=== PATIENT | female | born 1990 | race Caucasian/White ===

== ENCOUNTER 2022-12-26 09:31 | Emergency (ER) | payer OTHER, SELFPAY ==
[2022-12-26 09:38] VITALS: BP 131/72; PULSE 88; RESP 19; TEMP 36.6; O2SAT 99; BMI 46.5
--- NOTE | 2022-12-26 09:54 | ED_ITS ---
HPI - General Adult General Chief complaint: Psychiatric Symptoms Stated complaint: evaluation Time Seen by Provider: 12/26/22 09:54 Source: patient Mode of arrival: ambulatory Limitations: no limitations History of Present Illness HPI narrative: Patient is a 32 year old assigned female at with no reported medical history presenting to the emergency department today with increased anxiety. Patient states that her brother has been in the ICU after a bad car accident and her father recently . Patient states that these things are causing significantly increased anxiety and she feels overwhelmed. Patient states that it has been getting worse over the last 2 weeks. Patient denies any dizziness, lightheadedness, abdominal pain, nausea, vomiting, fever, chills, blurry vision, double vision, loss of vision, chest pain, difficulty breathing, shortness of breath, back pain, night sweats, pain with urination, increased urinary frequency, increased urinary urgency, blood in her urine or stool, syncope or a near syncopal episode, recent trauma or falls, bowel incontinence, bladder incontinence, bowel retention, bladder retention, or any other complaints at this time. Onset (ago): week(s) (2) Severity: mild Severity scale (1-10): 2 Relieving factors: none Exacerbating factors: none Associated symptoms: denies other symptoms Treatments prior to arrival: none Related Data Home Medications Medication Instructions Recorded Confirmed lorazepam 1 mg tablet 1 mg PO TID PRN Anxiety 12/26/22 12/26/22 Previous Rx's Medication Instructions Recorded bupropion HCl 150 mg 24 hr tablet, 150 mg PO QAM #14 tabs 12/26/22 extended release (Wellbutrin XL) lorazepam 1 mg tablet 1 mg PO BID PRN anxiety #14 tabs 12/26/22 Allergies Allergy/AdvReac Type Severity Reaction Status Date / Time No Known Allergies Allergy Verified 12/26/22 09:38 Review of Systems Constitutional: Constitutional: Reports no additional constitutional complaints, Denies chills, Denies fever(s) and Denies night sweats Eyes: Eyes: Reports no additional eye complaints, Denies blurry vision, Denies change in vision, Denies diplopia, Denies eye discharge, Denies loss of vision and Denies eye pain ENT: Denies dizziness Cardiovascular: Cardiovascular: Reports no additional cardiovascular co mplaints, Denies chest pain, Denies lightheadedness, Denies Loss of Consciousness and Denies dyspnea Respiratory: Respiratory: Reports no additional respiratory complaints and Denies dyspnea Gastrointestinal: Gastrointestinal: Reports no additional gastrointestinal complaints, Denies abdominal pain, Denies melena, Denies hematochezia, Denies change in bowel habits and Denies change in stool character Genitourinary: Genitourinary: Denies hematuria, Denies urinary frequency, Denies dysuria, Denies urinary incontinence, Denies urinary hesitancy and Denies urinary urgency Musculoskeletal: Musculoskeletal: Reports no additional musculoskeletal complaints, Denies numbness and Denies tingling Neurologic: Denies dizziness, Denies loss of vision, Denies numbness and Denies tingling Psychiatric: Psychiatric: Reports no additional psychiatric complaints and Reports anxiety Endocrine: Endocrine: Reports no additional endocrine complaints Hematologic/Lymphatic: Hematologic/Lymphatic: Reports no additional hematologic/lymphatic complaints Allergic/Immunologic: Allergic/Immunologic: Reports no additional allergic/immunologic complaints [facility] Past Medical History Attestation statement: The following information was validated with the patient. Source: old records reviewed and nursing notes reviewed Social History Social History Advance Directives: No Advance Directives Information Provided: Yes Physical Exam ED Vital Signs: Vital Signs - 24 hr 12/26/22 09:38 Temperature 98 F Pulse Rate 88 Respiratory Rate 19 Blood Pressure 131/72 Pulse Oximetry 99 Oxygen Delivery Method Room Air BMI result Body Mass Index 46.5 Const General: cooperative, no acute distress, alert and awake Nutritional Appearance: well nourished Orientation/consciousness: patient oriented x3 Limitations: no limitations [facility]: Yes normal to inspection and Yes atraumatic Ears: hearing grossly normal bilaterally and external ears normal General nose exam: Normal external nose present, no nasal discharge noted and no epistaxis Face and sinus: Yes normal facial exam, No abrasion and No laceration Mouth: Normal oral and palatal mucosa present, no drooling and no muffled voice Eyes General: appearance normal, both eyes and all related structures Periorbital: periorbital findings normal Eyelids: Yes eyelids normal Conjunctivae: conjunctivae normal Pupils: Equal, round and reactive pupils present EOM: EOMs intact bilaterally Neck Neck: Yes normal visual inspection, Yes full ROM and Yes no lymphadenopathy Chest Chest palpation & inspection: normal inspection of the chest Resp Effort & Inspection: normal respiratory effort and able to speak in complete sentences Auscultation: clear to auscultation bilaterally Cardio Rate: regular rate Rhythm: regular rhythm GI Inspection: Yes normal to inspection Neuro General: patient oriented x3 and moves all extremities Cranial nerves: Yes Equal, round and reactive pupils present Cognition (Neuro): normal cognition Motor exam (neuro): 5/5 motor strength present throughout Sensory Exam: Normal double simultaneous stimulation for sensation Coordination: [id number] test normal Extrem General: Yes normal to inspection, Yes full ROM and Yes capillary refill normal Psych Mental Status: mental status grossly normal Speech and movement: Normal speech and movement present Affect: Sad affect present Attitude: cooperative Thought process: Normal thought process present Thought content: Normal thought content present Insight: Fair insight present (Psych) Judgement: Fair judgement present (Psych) Medications Administered Discontinued Medications Generic Name Dose Route Start Last Admin Trade Name Freq PRN Reason Stop Dose Admin Lorazepam 1 mg 12/26/22 09:55 12/26/22 10:22 Lorazepam 1 Mg Tablet PO 12/26/22 09:56 1 mg ONCE ONE Administration Lorazepam 2 mg 12/26/22 13:45 12/26/22 13:49 Lorazepam 1 Mg Tablet PO 12/26/22 13:46 2 mg ONCE ONE Administration Medical Decision Making Medical Decision Making MDM Narrative: Patient is a 32 year old assigned female at with no reported medical history presenting to the emergency department today with increased anxiety. Patient's physical exam showed a tearful individual but was otherwise unremarkable. Patient's blood work was unremarkable. Patient's urine showed no acute process. Patient was evaluated by CARE Team who recommended partial hospitalization program. Patient was also evaluated by the psychiatry team who agreed to start the patient on Wellbutrin. I explained my physical exam findings as well as all test results to the patient. I answered all questions asked by the patient. Patient received PO Ativan which she stated helped her symptoms significantly. I stressed the importance of the patient taking her medication as prescribed. I stressed the importance of the patient following up with her primary care provider. I stressed the importance of the patient returning to the emergency department immediately if her symptoms were to worsen or if she were to develop any dizziness, shortness of breath, difficulty breathing, chest pain, blurry vision, loss of vision, nausea, vomiting, abdominal pain, fever, chills, back pain, or any other complaints. Patient verbalized agreement and understanding with this treatment plan and discharge. Differential Diagnosis Differential Diagnoses: The differential diagnosis associated with the presentation includes increased anxiety, increased depression Consult Healthcare Provider Management of the patient was discussed with: Package Pick Up (psychiatry agreed to start the patient on wellbutrin) and Behavioral Health Provider (recommended participation in the partial hospitalization program) Lab Data MDM Lab Attestation statement: I reviewed the patient's lab results. 12/26/22 10:20 12/26/22 10:20 Labs: Lab Results 12/26/22 12/26/22 12/26/22 Range/Units 10:20 10:20 10:20 WBC 6.3 (4.8-10.8) X10*3/uL RBC 5.24 (4.20-5.50) X10*6/uL Hgb 13.6 (12.0-16.0) g/dl Hct 42.7 (37.0-47.0) % MCV 81.5 (80.0-98.0) fL MCH 26.0 L (27.0-33.0) pg MCHC 31.9 (31.0-35.0) g/dl RDW 13.4 (11.0-16.0) % Plt Count 205 (160-400) X10*3/uL MPV 11.9 (9.4-12.3) fL Immature Gran % (Auto) 0.3 (0.0-0.4) % Neut % (Auto) 63.4 (45-73) % Lymph % (Auto) 27.3 (20-40) % [place] % (Auto) 7.7 (2-11) % Eos % (Auto) 0.8 (0-4) % Baso % (Auto) 0.5 (0-2) % Lymph # (Auto) 1.7 (1.2-4.9) X10*3/uL [place] # (Auto) 0.5 (0.1-1.2) X10*3/uL Eos # (Auto) 0.1 (0.0-0.4) X10*3/uL Baso # (Auto) 0.0 (0.0-0.2) X10*3/uL Abs Immat Gran (auto) 0.02 (0.00-0.03) X10*3/uL Absolute Neuts (auto) 4.0 (2.0-8.3) x10*3/uL Absolute Nucleated RBC 0.000 (0.0-0.012) X10*3/uL Nucleated RBC % (auto) 0.0 (0.0-0.2) /100WBC Sodium 141 (135-145) mmol/L Potassium 4.1 (3.3-5.1) mmol/L Chloride 108 (96-108) mmol/L Carbon Dioxide 25 (22-29) mmol/L Anion Gap 12 (12-20) BUN 11 (9-16) mg/dL Creatinine 0.76 (0.5-1.4) mg/dL Estim Creat Clear Calc 143.9 Estimated GFR > 60 Random Glucose 90 (60-115) mg/dL Calcium 9.7 (8.4-10.2) mg/dL Total Bilirubin 1.8 H (0.0-1.0) mg/dL AST 20 (5-31) U/L ALT 72 H (0-31) U/L Alkaline Phosphatase 80 (39-117) U/L Total Protein 6.7 (6.5-8.0) g/dL Albumin 4.3 (3.5-5.0) g/dL Urine Color Urine Appearance Urine pH (5.0-9.0) Ur Specific [place] (1.005-1.025) Urine Protein (Neg-Trace) mg/dL Urine Glucose (UA) (Negative) mg/dL Urine Ketones (Negative) mg/dL Urine Blood (Negative) Urine Nitrite (Negative) Ur Leukocyte Esterase (Negative) Urine Test (NEGATIVE) Urine Opiates Screen (Not Detect) Urine Fentanyl Screen (Not Detect) Ur Barbiturates Screen (Not Detect) Ur Phencyclidine Scrn (Not Detect) Ur Amphetamines Screen (Not Detect) U Benzodiazepines Scrn (Not Detect) Urine Cocaine Screen (Not Detect) U Marijuana (THC) Screen (Not Detect) COVID-19 (BIJAL) Negative (Negative) COVID-19 Clin Com See Note 12/26/22 12/26/22 12/26/22 Range/Units 12:59 12:59 12:59 WBC (4.8-10.8) X10*3/uL RBC (4.20-5.50) X10*6/uL Hgb (12.0-16.0) g/dl Hct (37.0-47.0) % MCV (80.0-98.0) fL MCH (27.0-33.0) pg MCHC (31.0-35.0) g/dl RDW (11.0-16.0) % Plt Count (160-400) X10*3/uL MPV (9.4-12.3) fL Immature Gran % (Auto) (0.0-0.4) % Neut % (Auto) (45-73) % Lymph % (Auto) (20-40) % [place] % (Auto) (2-11) % Eos % (Auto) (0-4) % Baso % (Auto) (0-2) % Lymph # (Auto) (1.2-4.9) X10*3/uL [place] # (Auto) (0.1-1.2) X10*3/uL Eos # (Auto) (0.0-0.4) X10*3/uL Baso # (Auto) (0.0-0.2) X10*3/uL Abs Immat Gran (auto) (0.00-0.03) X10*3/uL Absolute Neuts (auto) (2.0-8.3) x10*3/uL Absolute Nucleated RBC (0.0-0.012) X10*3/uL Nucleated RBC % (auto) (0.0-0.2) /100WBC Sodium (135-145) mmol/L Potassium (3.3-5.1) mmol/L Chloride (96-108) mmol/L Carbon Dioxide (22-29) mmol/L Anion Gap (12-20) BUN (9-16) mg/dL Creatinine (0.5-1.4) mg/dL Estim Creat Clear Calc Estimated GFR Random Glucose (60-115) mg/dL Calcium (8.4-10.2) mg/dL Total Bilirubin (0.0-1.0) mg/dL AST (5-31) U/L ALT (0-31) U/L Alkaline Phosphatase (39-117) U/L Total Protein (6.5-8.0) g/dL Albumin (3.5-5.0) g/dL Urine Color Dark Yellow Urine Appearance Clear Urine pH 6.0 (5.0-9.0) Ur Specific [place] 1.025 (1.005-1.025) Urine Protein Negative (Neg-Trace) mg/dL Urine Glucose (UA) Negative (Negative) mg/dL Urine Ketones 15 (Negative) mg/dL Urine Blood Negative (Negative) Urine Nitrite Negative (Negative) Ur Leukocyte Esterase Negative (Negative) Urine Test NEGATIVE (NEGATIVE) Urine Opiates Screen Not Detected (Not Detect) Urine Fentanyl Screen POSITIVE H (Not Detect) Ur Barbiturates Screen Not Detected (Not Detect) Ur Phencyclidine Scrn Not Detected (Not Detect) Ur Amphetamines Screen POSITIVE H (Not Detect) U Benzodiazepines Scrn Not Detected (Not Detect) Urine Cocaine Screen Not Detected (Not Detect) U Marijuana (THC) Screen Not Detected (Not Detect) COVID-19 (BIJAL) (Negative) COVID-19 Clin Com Critical Care Time Critical Care Time Critical Care Time: Yes Total Critical Care Time: 30 Attestation: I spent 30 minutes of Critical Care Time with this patient. This does not include time spent on separately reported billable procedures. Discharge Plan Discharge Clinical Impression: Depression, Acute anxiety Patient Disposition: Home, Self-Care Instructions: Depression (DC), Anxiety (ED) Additional Instructions: Follow up with your primary care provider. Return to the emergency department immediately if your symptoms worsen or if you develop any dizziness, shortness of breath, difficulty breathing, chest pain, blurry vision, loss of vision, nausea, vomiting, abdominal pain, fever, chills, back pain, or any other complaints. Prescriptions: New bupropion HCl [Wellbutrin XL] 150 mg tablet extended release 24 hr 150 mg PO QAM Qty: 14 0RF lorazepam 1 mg tablet 1 mg PO BID PRN (Reason: anxiety) Qty: 14 0RF No Action lorazepam 1 mg Tablet 1 mg PO TID PRN (Reason: Anxiety) Referrals: [facility] Family Medicine [Provider Group] (Call to establish and follow up with a primary care provider. If you already have a primary care provider, please follow up with them.) [facility] [Provider Group] (Call to establish and follow up with a primary care provider. If you already have a primary care provider, please follow up with them.) [facility] [Provider Group] (Call to establish and follow up with a primary care provider. If you already have a primary care provider, please follow up with them.) Stand Alone Forms: Work/School Release Interventions: [place]-Suicide Risk Severity Scale Last Done: 12/26/22 10:27 ED Discharge Assessment Last Done: 12/26/22 15:11 Discharge Date/Time: 12/26/22 15:12 Print Language: [place]
[2022-12-26] MEDS: LORazepam 1 MG TABLET PO (10:22)
[2022-12-26 10:24] LABS: MANUAL DIFF FLAG NO
[2022-12-26 10:26] LABS: Basophils Percent Auto 0.5 % (0-2); Eosinophils Absolute Auto 0.1 X10*3/uL (0.0-0.4); Eosinophils Percent Auto 0.8 % (0-4); Hematocrit 42.7 % (37.0-47.0); Hemoglobin 13.6 g/dl (12.0-16.0); Imm Gran Abs Auto 0.02 X10*3/uL (0.00-0.03); Imm Gran Pct Auto 0.3 % (0.0-0.4); Lymphocytes Absolute Auto 1.7 X10*3/uL (1.2-4.9); Lymphocytes Percent Auto 27.3 % (20-40); Mean Corpuscular HGB Conc 31.9 g/dl (31.0-35.0); Mean Corpuscular Volume 81.5 fL (80.0-98.0); Mean Platelet Volume 11.9 fL (9.4-12.3); Monocytes Absolute Auto 0.5 X10*3/uL (0.1-1.2); Monocytes Percent Auto 7.7 % (2-11); Neutrophils Percent Auto 63.4 % (45-73); Platelet Count 205 X10*3/uL (160-400); Red Blood Count 5.24 X10*6/uL (4.20-5.50); Red Cell Distribution Width 13.4 % (11.0-16.0); White Blood Count 6.3 X10*3/uL (4.8-10.8)
[2022-12-26 10:43] LABS: COVID-19 Test Negative (Negative); IDNOW Serial# 55D5AD1C
[2022-12-26 10:47] LABS: Alanine Aminotransferase 72 U/L (0-31); Albumin Level 4.3 g/dL (3.5-5.0); Alkaline Phosphatase 80 U/L (39-117); Anion Gap 12 (12-20); Aspartate Amino Transferase 20 U/L (5-31); Bilirubin Total 1.8 mg/dL (0.0-1.0); Blood Urea Nitrogen 11 mg/dL (9-16); Calcium 9.7 mg/dL (8.4-10.2); Carbon Dioxide 25 mmol/L (22-29); Chloride 108 mmol/L (96-108); Creatinine Clr Calc Pharmacy 143.9; Estimated Glomerular Filt Rate > 60; Glucose Random 90 mg/dL (60-115); Potassium 4.1 mmol/L (3.3-5.1); Sodium 141 mmol/L (135-145); Total Protein 6.7 g/dL (6.5-8.0)
--- NOTE | 2022-12-26 11:16 | PC.NURSE ---
care team at the bedside
[2022-12-26 13:10] LABS: Appearance Urine Clear; Color Urine Dark Yellow; Glucose Urine UA Negative (Negative); Leukocyte Esterase Urine Negative (Negative); Nitrite Urine Negative (Negative); Specific Gravity - Urine 1.025 (1.005-1.025); UPreg QC Valid YES; Urine Blood Negative (Negative); Urine Ketones 15 mg/dL (Negative); Urine Pregnancy NEGATIVE (NEGATIVE); Urine Protein Negative (Neg-Trace)
[2022-12-26] MEDS: LORazepam 1 MG TABLET 2 MG PO (13:49)
--- NOTE | 2022-12-26 14:01 | MHC.CARE ---
Referral sent for [facility] [place] PHP on 12/26 RAD Team to f/u on 12/27 with PHP
[2022-12-26 14:14] LABS: Amphetamine Screen Urine POSITIVE (Not Detect); Barbiturates, Urine Not Detected (Not Detect); Benzodiazepines Screen Urine Not Detected (Not Detect); Cannabinoid Screen Urine Not Detected (Not Detect); Cocaine Screen Urine Not Detected (Not Detect); Fentanyl, urine POSITIVE (Not Detect); Opiate Screen Urine Not Detected (Not Detect); Phencyclidine Screen Urine Not Detected (Not Detect)
--- NOTE | 2022-12-26 14:59 | PM.PSYCN ---
History of Present Illness Date of Service: 12/26/2022 Chief Complaint: evaluation Reason for Consult: depression Discussed with referring provider: Yes Sources of Information: patient interviewed, chart reviewed and crisis/core team assessment reviewed HPI Narrative: Ms. Ascencio is a 32 year-old woman with hx of depression who self presented to [facility] ED due to increase depressed mood, anhedonia, anxious mood. Pt reports several stressors including younger brother currently in ICU due to MVC, loss of her father about one year ago. Pt reports she has been avoiding dealing with of her father and now with her brother's situation, pt reports she is falling apart. She reports she realizes that she can't take it any more and need help. She adamantly denied suicidal ideation or homicidal ideation. No hx of VH/AH. No hx of of inpt psych admission. Pt reports her mother and sibling have been on wellbutrin with good effect. She wonders if this would be the case for her. She has not been on antidepressant. We discussed that wellbutrin can increase anxious mood- other than that she can try it and see how it works for her. She reports her sleep is fair, often times waking up thinking about her brother. Diagnostics Vital Signs (24Hr): Vital Signs - 24 hr 12/26/22 09:38 Temperature 98 F Pulse Rate 88 Respiratory Rate 19 Blood Pressure 131/72 Pulse Oximetry 99 Oxygen Delivery Method Room Air BMI result Body Mass Index 46.5 Labs 12/26/22 10:20 12/26/22 10:20 Labs: Laboratory Results - last 48 hr 12/26/22 12/26/22 12/26/22 10:20 10:20 10:20 WBC 6.3 RBC 5.24 Hgb 13.6 Hct 42.7 MCV 81.5 MCH 26.0 L MCHC 31.9 RDW 13.4 Plt Count 205 MPV 11.9 Immature Gran % (Auto) 0.3 Neut % (Auto) 63.4 Lymph % (Auto) 27.3 [place] % (Auto) 7.7 Eos % (Auto) 0.8 Baso % (Auto) 0.5 Lymph # (Auto) 1.7 [place] # (Auto) 0.5 Eos # (Auto) 0.1 Baso # (Auto) 0.0 Abs Immat Gran (auto) 0.02 Absolute Neuts (auto) 4.0 Absolute Nucleated RBC 0.000 Nucleated RBC % (auto) 0.0 Sodium 141 Potassium 4.1 Chloride 108 Carbon Dioxide 25 Anion Gap 12 BUN 11 Creatinine 0.76 Estim Creat Clear Calc 143.9 Estimated GFR > 60 Random Glucose 90 Calcium 9.7 Total Bilirubin 1.8 H AST 20 ALT 72 H Alkaline Phosphatase 80 Total Protein 6.7 Albumin 4.3 Urine Color Urine Appearance Urine pH Ur Specific [place] Urine Protein Urine Glucose (UA) Urine Ketones Urine Blood Urine Nitrite Ur Leukocyte Esterase Urine Test Urine Opiates Screen Urine Fentanyl Screen Ur Barbiturates Screen Ur Phencyclidine Scrn Ur Amphetamines Screen U Benzodiazepines Scrn Urine Cocaine Screen U Marijuana (THC) Screen COVID-19 (BIJAL) Negative COVID-19 Clin Com See Note 12/26/22 12/26/22 12/26/22 12:59 12:59 12:59 WBC RBC Hgb Hct MCV MCH MCHC RDW Plt Count MPV Immature Gran % (Auto) Neut % (Auto) Lymph % (Auto) [place] % (Auto) Eos % (Auto) Baso % (Auto) Lymph # (Auto) [place] # (Auto) Eos # (Auto) Baso # (Auto) Abs Immat Gran (auto) Absolute Neuts (auto) Absolute Nucleated RBC Nucleated RBC % (auto) Sodium Potassium Chloride Carbon Dioxide Anion Gap BUN Creatinine Estim Creat Clear Calc Estimated GFR Random Glucose Calcium Total Bilirubin AST ALT Alkaline Phosphatase Total Protein Albumin Urine Color Dark Yellow Urine Appearance Clear Urine pH 6.0 Ur Specific [place] 1.025 Urine Protein Negative Urine Glucose (UA) Negative Urine Ketones 15 Urine Blood Negative Urine Nitrite Negative Ur Leukocyte Esterase Negative Urine Test NEGATIVE Urine Opiates Screen Not Detected Urine Fentanyl Screen POSITIVE H Ur Barbiturates Screen Not Detected Ur Phencyclidine Scrn Not Detected Ur Amphetamines Screen POSITIVE H U Benzodiazepines Scrn Not Detected Urine Cocaine Screen Not Detected U Marijuana (THC) Screen Not Detected COVID-19 (BIJAL) COVID-19 Clin Com Mental Status Exam Mental Status Exam Narrative: Appearance: casually groomed, good hygiene, in NAD Behavior: cooperative Psychomotor: no agitation or retardation noted Speech: clear, normal rate/rhythm/volume, spontaneous TP: linear TC: no signs of psychosis, future oriented but overwhelmed Mood: worried Affect: congruent SI: denies HI: none VH/AH: none Delusions: none Insight/judgment: fair x 2. Memory/cog: alert, oriented x 3. grossly intact to conversational testing. Medications Allergies Allergies Allergy/AdvReac Type Severity Reaction Status Date / Time No Known Allergies Allergy Verified 12/26/22 09:38 Assessment & Plan Assessment & Plan (1) MDD (major depressive disorder), recurrent episode, moderate: Status: Acute Code(s): F33.1 - Major depressive disorder, recurrent, moderate Plan PLAN: 1. no need for inpatient level of care given that there is no imminent safety concerns and pt denies suicidal or homicidal ideation. 2. Pt agrees to start PHP 3. will start wellbutrin xr 150mg po daily, short term ativan for anxiety. monitor increase anxious mood or insomnia. Total time managing care of this patient today ____ minutes.
--- NOTE | 2022-12-26 15:04 | MHC.CARE ---
Jamaica Villeda NP completed consult and agreement with plan to start PHP. Pt provided with information for PHP, community crisis information and [id number].
== END 2022-12-26 15:12 | disposition home or self-care (01) ==
PROVIDERS: Emergency Provider Emergency Medicine
DX: F33.1 Major depressive disorder, recurrent, moderate (principal); F41.1 Generalized anxiety disorder; F43.0 Acute stress reaction; Z20.822 Contact with and (suspected) exposure to COVID-19; Z20.828 Contact with and (suspected) exposure to other viral communicable diseases; Z79.899 Other long term (current) drug therapy
CPT/HCPCS: 80053; 80307; 81003; 81025; 85025; 87635; 99283; 99284; S9485

== ENCOUNTER 2023-08-15 21:55 | Emergency (ER) | payer OTHER, SELFPAY ==
--- NOTE | 2023-08-15 | ECG_ITS ---
Test Reason : ARM AND NECK PAIN Blood Pressure : / mmHG Vent. Rate : 104 BPM Atrial Rate : 104 BPM P-R Int : 164 ms QRS Dur : 092 ms QT Int : 366 ms P-R-T Axes : 044 022 028 degrees QTc Int : 481 ms Sinus tachycardia Possible Right atrial enlargement Intra-ventricular conduction delay Borderline ECG No previous ECGs available Referred By: Generic ED Physician Electronically Signed By:KRISTIAN MANJARREZ MD
--- NOTE | ~2023-08-15 | CT_ITS ---
EXAMINATION: CT facial bones wo IV con, CT cervical spine wo IV con, CT head/brain wo IV con INDICATION INFORMATION: Reason for Exam fall facial pain COMPARISON: None TECHNIQUE: Separate noncontrast CT examinations of the head, face, and cervical spine were performed. Coronal and sagittal images were created for each examination at the technologist workstation. This CT examination was performed using dose optimization techniques as appropriate, variously including the following: *Automated exposure control *Adjustment of mA and/or kV according to patient size (this includes techniques or standardized protocols for targeted exams where dose is matched to indication/reason for exam; i.e. extremities or head) *Use of iterative reconstruction technique DLP: 1376 mGy-cm FINDINGS: Head: No acute osseous or soft tissue abnormality. The mastoid air cells and are well aerated. There is no evidence of acute intracranial hemorrhage or territorial infarction. No abnormal mass effect or midline shift is seen. Manriquez to white matter differentiation is well preserved. No extra-axial fluid collections are identified. No hydrocephalus. No significant volume loss. There is no abnormal attenuation within the brain parenchyma. Facial Bones: There is no evidence of an acute facial bone fracture. Right frontal and bilateral maxillary sinus retention cysts. No significant dental disease is visualized. The orbits are unremarkable in appearance. Cervical spine: There is no evidence of acute cervical spine fracture. Vertebral bodies remain normal in height. Loss of the usual cervical spine lordosis. Mild multilevel cervical spondylosis. No pre- or paravertebral soft tissue abnormality is identified. Visualized portions of the lung apices are unremarkable. There is a hypodense nodule along the posterior right thyroid gland measuring approximately 2.[address]/CT cervical spine wo IV con IMPRESSION: 1. No acute intracranial abnormality. 2. No cervical spine fracture or traumatic malalignment. 3. No facial fracture. 4. 2.5 cm right thyroid nodule. Recommend further assessment with outpatient thyroid ultrasound.
--- NOTE | ~2023-08-15 | XR_ITS ---
EXAMINATION: XR CHEST CLINICAL INFORMATION: Fall with neck trauma COMPARISON: None available. TECHNIQUE: Frontal view of the chest was obtained. FINDINGS: No significant abnormality is noted involving the heart, lungs, mediastinum, bony thorax or soft tissues. XR/XR chest 1V IMPRESSION: Unremarkable examination.
[2023-08-15 22:03] VITALS: BP 105/94; BP 129/76; PULSE 107; PULSE 99; RESP 15; TEMP 36.9; O2SAT 98; O2SAT 99; BMI 49.9
--- OUTSIDE RECORDS SUMMARY | 2023-08-15 22:35 | XMS_ITS | Continuity of Care Document ---
Author Name Unknown Organization [facility] Address [address] [place] [address]- Care Team Providers Care Montessori Toddler Teacher Name Role Phone Griselda-Carmen PACHECO, Bianca Primary Care Physicia n [facility] [id number] Date(s): 03/16/21 - 04/15/21 [facility] [address] [place] [address] Attending Physician: AdmAlex saul Admitting Physician: AdmtrAlex Referring Physician: Admtr, [id number] Allergies, Adverse Reactions, Alerts Substance Reaction Severity Status NKA Active Immunizations Given and Recorded Vaccine Date Status Refusal Reason tetanus/diphtheria/pertussis, acel(Tdap) 12/01/20 Given tetanus/diphtheria/pertussis, acel(Tdap) 08/07/15 Given tetanus/diphtheria/pertussis, acel(Tdap) 12/11/12 Given influenza virus vaccine, inactivated 07/10/15 Give n Not Given Vaccine Date Status Refusal Reason pneumococcal 23-valent vaccine 01/02/16 Not Given Patient Refuses Medications albuterol 0.083% inhalation solution 6 mL = 5 mg, Inhalation, Every 6 hours, PRN for wheezing, # 60 each, 3 Refills, Maintenance, 06/11/20 15:00:00 EDT, Solution, [id number], 165, cm, 06/11/20 14:30:00 EDT, Height, 161.2, kg, 03/26/20 20:37:00 EDT, Dry Weight Start Date: 06/11/20 Status: Ordered Colace sodium 100 mg oral capsule 100 mg, 1, capsule, By Mouth, 2 times a day, PRN, # 30 capsule, Refills 2, Tot. Refills 2, Maintenance, for constipation, 12/30/20 7:55:00 EDT, Route to Pharmacy Electronically, [facility]/pharmacy #[id number], Partial fill upon patient request if the prescription... Start Date: 12/30/20 Status: Ordered docusate sodium 100 mg oral capsule 1 capsule = 100 mg, By Mouth, 2 times a day, PRN as needed for constipation, # 60 capsule, 0 Refills, Maintenance, 01/21/21 7:55:00 EDT, Capsule, [facility]/pharmacy #[id number], Partial fill upon patient requestif the prescription is for a schedule II opioid elisha... Start Date: 01/21/21 Status: Ordered ibuprofen 600 mg oral tablet 600 mg, 1, tablet, By Mouth, Every 6 hours, PRN, # 30 tablet, Refills 1, Tot. Refills 1, Maintenance, Pain , Moderate, 01/21/21 7:55:00 EDT, Route to Pharmacy Electronically, [id number], Partial fill upon patient request if the prescription is... Start Date: 01/21/21 Status: Ordered MiraLax oral powder for reconstitution = 17 Gm, By Mouth, Daily, dissolve in water before taking, # 527 Gm, 1 Refills, Maintenance, 12/15/20 11:23:00 EDT, REC Powder, [facility]/pharmacy #[id number], Partial fill upon patient request if the prescription is for a schedule II opioid drug., 17 Gm By Mouth... Start Date: 12/15/20 Status: Ordered omeprazole 40 mg oral enteric coated capsule See Instructions, TAKE 1 CAPSULE BY MOUTH DAILY BEFORE A MEAL, # 30 capsule, 0 Refills, Maintenance, [id number], 165, cm, 01/18/21 1:48:00 EDT, Height, 170.5, kg, 01/18/21 1:48:00 EDT, Dry Weight Start Date: 01/19/21 Status: Ordered Peak Flow Meter (Adult) See Instructions, # 1 each, Maintenance, see instructions, 11/03/20 12:02:00 EST, Supply, 166, cm, 11/03/20 10:47:00 EST, Height, 158.6, kg, 06/29/20 18:27:00 EDT, Dry Weight Start Date: 11/03/20 Status: Ordered Multivitamins with FA 0.8 mg oral tablet 1 tablet, By Mouth, Daily, # 100 tablet, 3 Refills, Maintenance, 06/11/20 15:01:00 EDT, Tablet, [id number], 1 tablet By Mouth Daily, 165, cm, 06/11/20 14:30:00 EDT, Height, 161.2, kg, 03/26/20 20:37:00 EDT, Dry Weight Start Date: 06/11/20 Status: Ordered simethicone 80 mg oral tablet 1 tablet = 80 mg, Chew, 3 times a day after meals, PRN as needed for gas, # 60 tablet, 0 Refills, Maintenance, 01/21/21 7:54:00 EDT, Tablet, [id number], Partial fill upon patient request if the prescription is for a schedule II opioid drug., 1... Start Date: 01/21/21 Status: Ordered Tylenol 325 mg oral capsule 2 capsule = 650 mg, By Mouth, Every 4 hours, PRN as needed for pain, # 60 capsule, 1 Refills, Maintenance, 01/21/21 7:55:00 EDT, Capsule, [id number], Partial fill upon patient request if the prescription is for a schedule II opioid drug., 165,... Start Date: 01/21/21 Status: Ordered Xarelto 20 mg oral tablet 1 tablet = 20 mg, By Mouth, Daily at supper, # 30 tablet, 3 Refills, Maintenance, 03/24/21 15:57:00EDT, Tablet, [id number], Partial fill upon patient request if the prescription is for a schedule II opioid drug., 165, cm, 03/09/21 12:01:00 ED... Start Date: 03/24/21 Status: Ordered Problem List Condition Effective Dates Status Health Status Inform ant DVT RLE(Confirmed) 1 Active Blood type A-(Confirmed) 03/03/15 Active Constipation in (Confirmed) Active Negative screen Cystic fibrosis(Confirmed) 03/04/15 Active Gestational diabetes mellitus(Confirmed) Active H/O varicella as a child(Confirmed) Active H/O syncope(Confirmed) Active 1Pt currently on Lovenox 160mg BID - placed on this medication at a [facility] vist on 06/11/2020 Social History Social History Type Response Smoking Status Never (less than 100 in lifetime) entered on: 1/18/20 Sex
--- OUTSIDE RECORDS SUMMARY | 2023-08-15 22:35 | XMS_ITS | Continuity of Care Document ---
Author Name Unknown Organization [facility] Address [address] [place] [address]- Care Team Providers Care Basting Cleaner Name Role Phone Griselda-Carmen PACHECO, Bianca Primary Care Physicia n Encounter [facility] Date(s): 08/23/22 - 08/23/[address] [address]- Discharge Disposition: A-D/C Home Attending Physician: Florentin Mora MD Admitting Physician: Florentin Mora MD Referring Physician: Not on Staff, Referring MD Allergies, Adverse Reactions, Alerts No Known Allergies Immunizations Given and Recorded Vaccine Date Status Refusal Reason tetanus/diphtheria/pertussis, acel(Tdap) 12/01/20 Given tetanus/diphtheria/pertussis, acel(Tdap) 08/07/15 Given tetanus/diphtheria/pertussis, acel(Tdap) 12/11/12 Given influenza virus vaccine, inactivated 07/10/15 Give n Not Given Vaccine Date Status Refusal Reason pneumococcal 23-valent vaccine 01/02/16 Not Given Patient Refuses Medications Colace sodium 100 mg oral capsule 100 mg, 1, capsule, By Mouth, 2 times a day, PRN, # 20 capsule, Refills 0, Tot. Refills 0, Maintenance, for constipation, 05/14/22 20:43:00 EDT, Route to Pharmacy Electronically, [facility]/pharmacy #[id number], Partial fill upon patient request if the prescriptio... Start Date: 05/14/22 Status: Ordered Percocet-5/325 325 mg-5 mg oral tablet 3 tablet, Tablet, By Mouth, On Discharge, STAT, 08/23/22 20:27:00 EST Start Date: 08/23/22 Stop Date: 08/23/22 Status: Completed Tylenol 325 mg oral capsule 2 capsule [...] mg, By Mouth, Daily at supper, # 90 tablet, 3 Refills, Maintenance, 03/09/22 10:32:00EDT, Tablet, [id number], Partial fill upon patient request if the prescription is for a schedule II opioid drug., 165, cm, 03/09/22 10:06:00 ED... Start Date: 03/09/22 Status: Ordered Problem List Condition Confirmation Course Effective Dates Status Health St atus Informant DVT RLE 1 Confirmed Active Blood type A- Confirmed 03/03/15 Active Constipation in Confirmed Active Negative screen Cystic fibrosis Confirmed 03/04/15 Active Gestational diabetes mellitus Confirmed Active H/O varicella as a child Confirmed Active H/O syncope Confirmed Active Severe obesity Confirmed Active 1Pt currently on Lovenox 160mg BID - placed on this medication at a [facility] vist on 06/11/2020 Results Radiology Reports * Exam Date Time Procedure Performing Provider Status 08/23/22 6:[address] Maxilloface W/O Contrast Kelin Carreon; Auth (Verified) Notes: (CT Maxilloface W/O Contrast) Reason For Exam: sinus infection , nasal bone / facial bone injury;Other: RESULT: CT Maxilloface W/O Contrast CT Maxilloface W/O Contrast INDICATION: Hx of Present Illness: Pt arrives with a nasal injury. Pt states her toddler head budded her about a week ago and has had pain, swelling and congestion since. Pt was seen at urgent care 6days ago and was treated for a sinus infection. Pt denies any relief from abx.; Reason: Other:; sinus infection , nasal bone facial bone injury; Clinical Question(s): Other: COMPARISON: None available. TECHNIQUE: Spiral maxillofacial CT scan was performed. Bone and soft tissue algorithms were reconstructed along with axial, coronal and sagittal reformats. A weight-based protocol with automatic tubemodulation was used to optimize exposure parameters. FINDINGS: There is a nondisplaced fracture in the right nasal bone. Remainder of the facial bones are intact. Large mucous retention cysts in the maxillary sinuses measuring up to 2.6 cm on the left. Mild mucosal thickening in frontal and maxillary sinuses and moderate mucosal thickening in the ethmoid air cells with near complete occlusion of the anterior ethmoid air cells and nasal turbinates. Mastoid air cells are clear. Sphenoid sinuses are clear. Mandible is intact. Orbits and globes are normal. Mildly prominent bilateral level 1B lymph nodes with the largest measuring 1 cm in short axis on the left, nonspecific and most likely reactive. Dental hardware in the right maxilla. IMPRESSION: Nondisplaced right nasal bone fracture. Paranasal sinus disease with relatively preserved sphenoid sinuses. WSN: [id number] Ordering Physician: Kendy Glover Dictated By: Gume Huber MD Dictated Date/Time: 08/23/22 6:47 pm Reviewed By: Gume Huber MD Signed By: Gume Huber MD Signed Date/Time: 08/23/22 6:47 pm Transcribed By: MELANIE Transcribed Date/Time: 08/23/22 6:39 pm * Exam Date Time Procedure Performing Provider Status 08/23/22 5:56 PM Nasal Bone Comp Min 3 Views Bill Mercado (Verified) Notes: (Nasal Bone Comp Min 3 Views) Reason For Exam: Pain RESULT: Nasal Bone Comp Min 3 Views Nasal Bone Comp Min 3 Views Hx of Present Illness: Pt arrives with a nasal injury. Pt states her toddler head budded her about a week ago and has had pain, swelling and congestion since. Pt was seen at urgent care 6 days ago and was treated for a sinus infection. Pt denies any relief from abx.; Reason: Pain; Clinical Question(s): Other: COMPARISON: None FINDINGS: Clear sinuses. No fractures. IMPRESSION: No fracture or malalignment. WSN: [id number] Ordering Physician: Florentin Mora Dictated By: Lalo Ruiz MD Dictated Date/Time: 08/23/22 5:59 pm Reviewed By: Lalo Ruiz MD Signed By: Lalo Ruiz MD Signed Date/Time: 08/23/22 5:59 pm Transcribed By: MELANIE Transcribed Date/Time: 08/23/22 5:58 pm Vital Signs Most recent to oldest [Reference Range]: 1 2 Height 165 cm (08/23/22:29 PM) 165 cm (08/23/22:23 PM) Weight 145.1 kg (08/23/22:29 PM) 145.1 kg (08/23/22:23 PM) Oxygen Saturation [94-100 %] 100 % (08/23/22 PM) Pulse Rate [55-90 bpm] 80 bpm (08/23/22 PM) Body Mass Index [18.5-24.99 kg/m2] 53.3 kg/m2 *>HHI* (08/23/22: PM) Blood Pressure [90-138/55-84 mm Hg] 146/ 86mm Hg *H* (08/23/22 PM) Respiratory Rate [16-30 br/min] 17 br/mi n (08/23/22 8:34 PM) 16 br/min (08/23/22: PM) Temperature [96.8-100.4 DegF] 97.8 DegF (08/23/22: PM) Mode of Delivery (Oxygen) Room air (08/23/22: PM) Blood pressure sites Arm, right (08/23/22: PM) Temperature Route Temporal (08/23/22: PM) Dry Weight 145.1 kg (08/23/22:29 PM) 145.1 kg (08/23/22:23 PM) Weight Obtained Via Standing scale (08/23/22: PM) Social History Social History Type Response Smoking Status Never (less than 100 in lifetime) entered on: 10/12/19 Sex Note * Kendy Ortiz: PERFORM, SIGN, VERIFY Event Display: Patient Education Handout Authored Date: * Kendy Ortiz: PERFORM Event Display: Patient Education Leaflets Authored Date: Nose Fracture, with X-Ray ?? [id number] Nose Fracture, with X-Ray A broken bone (fracture) of the nose may be a minor crack. Or it may be a major break, with the parts of your nose pushed out of place. A fractured nose causes pain, swelling, and nasal stuffiness. You may have bleeding from your nose. By tomorrow, you may have bruising around your eyes. A minor fracture will heal in 3 to 4 weeks, with no more treatment needed. A major break that changes the shape of your nose may need to??be treated by an ear, nose, and throat doctor (ENT or metal filer). The ENT doctor will straighten the bones in your nose. This is called a reduction. Some fractures may need a reduction as soon as possible, such as when bleeding from the nose won't stop. Otherwise, it's best to wait a few days until the swelling has gone down. The doctor will then be able to easily see when your nose is back in the right position. Home care ??? Use an ice pack on your nose for??no more than 15 to??20 minutes at a time. Do this every 1 to 2 hours for the first??24 to 48 hours. Then use the ice??as needed to ease pain and swelling. To make an ice pack, put ice cubes in a plastic??bag that seals at the top. Wrap the bag in a clean, thin towel or cloth. Never put ice or an ice pack directly on your skin. ??? Tell your providerif you are taking aspirin or blood-thinning medicine. These medicines make it more likely that yournose will bleed. Your provider may need to change your dose. ??? You may use??[id number] painmedicine to control pain, unless another medicine was prescribed. If you have chronic liver or kidney disease or history of gastrointestinal ulcers,??talk with your provider before using this medicine. ??? Don???t drink alcohol or hot liquids for the next 2 days. Alcohol and hot liquids can dilate blood vessels in your nose. This can cause bleeding. ??? Don???t blow your nose for the first 2 days. Then, do so gently so you don't cause bleeding. ??? Don???t play contact sports in the next 6 weeks unless you can protect your nose from getting injured again. You can wear a special custom-fitted plastic face mask to protect your nose. ?? Special note on concussions If you had any symptoms of a concussion today, don???t return to sports or any activity that could result in another head injury. These are symptoms of a concussion: ??? Upset stomach (nausea) ??? Vomiting ??? Dizziness ??? Confusion ??? Headache ??? Memory loss ??? Loss of consciousness Wait until all of your symptoms are gone and your provider says it???s OK to resume your activity. Having a second head injury before you fully recover from the first one can lead to serious brain injury. ?? Follow-up care Follow up with your healthcare provider as advised. If your nose looks crooked after the swelling goes down, call the ENT doctor for an appointment??within the next 10 days. Also make an appointment if it???s still hard to breathe through 1 or both sides of your nose. If you have trouble getting anENT appointment, call your regular provider. If the bones are out of place, a reduction should be done 6 to 10??days??after the injury. In children, the reduction should be done 3 to 7??days??after the injury. After that time, the bones are more difficult to move back into place. If you had X-rays taken,??you will be told of any new findings that may affect your care. ?? When to get medical advice Call your healthcare provider right away??if any of these occur: ??? Bleeding from your nose, even after you've pinched your nostrils together for 15 minutes??without stopping ??? Swelling, pain, or redness on your face that gets worse ??? Fever of 100.4??F (38??C) or higher, as directed by your provider ??? Chills ??? Can't breathe from both sides of your nose after swelling goes down ??? Sinus pain ?? Call 911 Call 911 if you have: ??? Repeated vomiting ??? Severe headache or dizziness ??? Headache or dizziness that gets worse ??? Sensitivity to light and noise ??? Lack of awareness of surroundings ??? Abnormal drowsiness, or unable to wake up as normal ??? Confusion or change in behavior or speech ??? Memory loss ??? Convulsion, or seizure ?? Last Reviewed Date: 2021 ?? [id number] [employer]. All rights reserved. This information is not intended as a substitute for professional medical care. Always follow your healthcare professional's instructions. ?? * BROOK Wright S: TRANSCRILalo Gray MD: VERIFY Event Display: Result: Authored Date: Nasal Bone Comp Min 3 Views Hx of Present Illness: Pt arrives with a nasal injury. Pt states her toddler head budded her about a week ago and has had pain, swelling and congestion since. Pt was seen at urgent care 6 days ago and was treated for a sinus infection. Pt denies any relief from abx.; Reason: Pain; Clinical Question(s): Other: COMPARISON: None FINDINGS: Clear sinuses. No fractures. IMPRESSION: No fracture or malalignment. WSN: [id number] Ordering Physician: Florentin Mora Dictated By: Lalo Ruiz MD Dictated Date/Time: 08/23/22 5:59 pm Reviewed By: Lalo Ruiz MD Signed By: Lalo Ruiz MD Signed Date/Time: 08/23/22 5:59 pm Transcribed By: MELANIE Transcribed Date/Time: 08/23/22 5:[address] Maxillofacial region WO contrast * BROOK Wright S: TRANSCRIGume Vidal MD: VERIFY Event Display: Result: Authored Date: CT Maxilloface W/O Contrast INDICATION: Hx of Present Illness: Pt arrives with a nasal injury. Pt states her toddler head budded her about a week ago and has had pain, swelling and congestion since. Pt was seen at urgent care 6days ago and was treated for a sinus infection. Pt denies any relief from abx.; Reason: Other:; sinus infection , nasal bone facial bone injury; Clinical Question(s): Other: COMPARISON: None available. TECHNIQUE: Spiral maxillofacial CT scan was performed. Bone and soft tissue algorithms were reconstructed along with axial, coronal and sagittal reformats. A weight-based protocol with automatic tubemodulation was used to optimize exposure parameters. FINDINGS: There is a nondisplaced fracture in the right nasal bone. Remainder of the facial bones are intact. Large mucous retention cysts in the maxillary sinuses measuring up to 2.6 cm on the left. Mild mucosal thickening in frontal and maxillary sinuses and moderate mucosal thickening in the ethmoid air cells with near complete occlusion of the anterior ethmoid air cells and nasal turbinates. Mastoid air cells are clear. Sphenoid sinuses are clear. Mandible is intact. Orbits and globes are normal. Mildly prominent bilateral level 1B lymph nodes with the largest measuring 1 cm in short axis on the left, nonspecific and most likely reactive. Dental hardware in the right maxilla. IMPRESSION: Nondisplaced right nasal bone fracture. Paranasal sinus disease with relatively preserved sphenoid sinuses. WSN: [id number] Ordering Physician: Kendy Glover Dictated By: Gume Huber MD Dictated Date/Time: 08/23/22 6:47 pm Reviewed By: Gume Huber MD Signed By: Gume Huber MD Signed Date/Time: 08/23/22 6:47 pm Transcribed By: MELANIE Transcribed Date/Time: 08/23/22 6:39 pm Patient Care team information Care Team Personnel Name: Bianca Birmingham MD Position: [facility] Primary Care Physician Member Role: PCP Address: Address: [address] [place] [address] [place] [address]- Name: Sheree Diego RN Position: [facility] RN Member Role: Primary Care Nurse Name: Janine Guzman Position: [facility] Outreach Member Role: Lifetime Consulting Physician Name: Rosalia Parsons RN Position: [facility] RN Member Role: Primary Care Nurse Name: Erika Sauceda RN Position: [facility] RN Member Role: Primary Care Nurse Name: Clara Velázquez RN Position: [facility] RN Member Role: Primary Care Nurse Name: Emma Flower RN Position: [facility] Hospital Rim Fire Priming Tool Setter Member Role: Primary Care Nurse Name: Summer Ratliff RN Position: [facility] RN Member Role: Primary Care Nurse Name: Haider Valdes RN Position: [facility] ED RN W/OE and Tasks Member Role: Patient Care Provider Name: Kendra Augustine Position: [facility] ED OA Name: Kendy Ortiz Position: [facility] Associate Professional Member Role: Physician Forge Press Operator Address: Address: [address] [place] [address] [place] [address]- [place] Name: Florentin Mora MD Position: [facility] ED Medicine MD Member Role: Admitting Physician Address: Address: [address] [place] [id number]- Care Team Related Persons Name: MAGNOLIAYAW Address: home [address] [place] [id number] Name: JEM KIMBALL Address: home [address] [place] [address] Name: BEE KIMBALL Address: [employer] Address: home [address] [place] [address] [place]
--- OUTSIDE RECORDS SUMMARY | 2023-08-15 22:35 | XMS_ITS | Continuity of Care Document ---
Author Name Unknown Organization [facility] Address [address] [place] [address]- Care Team Providers Care Land Mobile Radio Technician Name Role Phone Griselda-Carmen PACHECO, [facility] Primary Care Physicia n Encounter [facility] Date(s): 12/01/20 - 03/18/[address] [address]- Attending Physician: Not on Staff, Attending MD Allergies, Adverse Reactions, Alerts Substance Reaction Severity [...] 12/30/20 7:55:00 EDT, Route to [facility], [id number], Partial fill upon patient request if the prescription... Start Date: 12/30/20 Status: Ordered docusate sodium 100 mg oral capsule 1 capsule = 100 mg, By Mouth, 2 times a day, PRN as needed for constipation, # 60 capsule, 0 Refills, Maintenance, 01/21/21 7:55:00 EDT, Capsule, [id number], Partial fill upon patient requestif the [...] prescription is... Start Date: 01/21/21 Status: Ordered Lovenox 100 mg/mL injectable solution 1 mL = 100 mg, Subcutaneous Injection, Every 12 hours, for 90 days, # 180 mL, 12 Refills, Acute 05/22/24 12:12:00 EDT, 03/09/21 12:12:00 EDT, Solution, [id number], 165, cm, 03/09/21 12:01:00 EDT, Height, 170.5, kg, 01/18/21 1:48:00 EDT, Dry We... Start Date: 03/09/21 Stop Date: 05/22/24 Status: Ordered MiraLax oral powder for reconstitution = 17 Gm, By Mouth, Daily, dissolve in water before taking, # 527 Gm, 1 Refills, Maintenance, 12/15/20 11:23:00 EDT, REC Powder, [id number], Partial fill upon patient request if the prescription is for a schedule II opioid drug., 17 Gm By Mouth... Start Date: 12/15/20 Status: Ordered omeprazole 40 mg oral enteric coated capsule See Instructions, TAKE 1 CAPSULE BY MOUTH DAILY BEFORE A MEAL, # 30 capsule, 0 Refills, Maintenance, [id number], 165, cm, 01/18/21 1:48:00 EDT, Height, 170.5, [...] drug., 165,... Start Date: 01/21/21 Status: Ordered Problem List Condition Effective Dates Status Health Status Inform ant DVT RLE(Confirmed) 1 Active Blood type A-(Confirmed) 03/03/15 Active Constipation in (Confirmed) Active Negative screen Cystic fibrosis(Confirmed) 03/04/15 Active Gestational diabetes mellitus(Confirmed) Active H/O varicella as a child(Confirmed) Active H/O syncope(Confirmed) Active 1Pt currently on Lovenox 160mg BID [facility] Social History Social History Type Response Smoking Status Never (less than 100 in lifetime) entered on: 10/12/19 Sex
--- OUTSIDE RECORDS SUMMARY | 2023-08-15 22:35 | XMS_ITS | Continuity of Care Document ---
Author Name Unknown Organization [facility] ter Address [address] [place] [id number]- Care Team Providers Care Project Consultant Name Role Phone Griselda-Carmen PACHECO, Bianca Primary Care Physicia n Encounter [facility] Date(s): 01/13/21 - 03/13/[address] [id number] Attending Physician: Jinny Mauricio MD Referring Physician: Jinny Rios MD Allergies, Adverse Reactions, Alerts Substance Reaction [...] 0 Refills, Maintenance, 01/21/21 7:55:00 EDT, Capsule, [facility]/pharmacy #[id number], Partial fill upon patient requestif the prescription is for a schedule II opioid elisha... Start Date: 01/21/21 Status: Ordered ibuprofen 600 mg oral tablet 600 mg, 1, tablet, By Mouth, Every 6 hours, PRN, # 30 tablet, Refills 1, Tot. Refills 1, Maintenance, Pain , Moderate, 01/21/21 7:55:00 EDT, Route to Pharmacy Electronically, [facility]/pharmacy #[id number], Partial fill upon patient request if the prescription is... Start Date: 01/21/21 Status: Ordered Lovenox 100 mg/mL injectable solution 1 mL = 100 mg, Subcutaneous Injection, Every 12 hours, for 90 days, # 180 mL, 12 Refills, Acute 05/22/24 12:12:00 EDT, 03/09/21 12:12:00 EDT, Solution, [facility]/pharmacy #[id number], 165, cm, 03/09/21 12:01:00 EDT, Height, 170.5, kg, 01/18/21 1:48:00 EDT, Dry We... Start Date: 03/09/21 Stop Date: 05/22/24 Status: Ordered MiraLax oral powder for reconstitution = 17 Gm, By Mouth, Daily, dissolve in water before taking, # 527 Gm, 1 Refills, Maintenance, 12/15/20 11:23:00 EDT, REC Powder, [facility]/pharmacy #[id number], Partial fill upon patient request if the prescription is for a schedule II opioid drug., 17 Gm By Mouth... Start Date: 12/15/20 Status: Ordered omeprazole 40 mg oral enteric coated capsule See Instructions, TAKE 1 CAPSULE BY MOUTH DAILY BEFORE A MEAL, # 30 capsule, 0 Refills, Maintenance, [id number], 165, cm, 01/18/21 1:48:00 EDT, Height, 170.5, [...] - placed on this medication at a [facility] vist on 06/11/2020 Social History Social History Type Response Smoking Status Never (less than 100 in lifetime) entered on: 10/12/19 Sex
--- OUTSIDE RECORDS SUMMARY | 2023-08-15 22:35 | XMS_ITS | Continuity of Care Document ---
Author Name Unknown Organization [facility] Address [address] [place] [address]- Care Team Providers Care Hydroelectric Powerplant Supervisor Name Role Phone Griselda-Carmen PACHECO, Bianca Primary Care Physicia n Encounter [facility] Date(s): 11/27/22 - 11/27/[address] [address]- Discharge Disposition: A-D/C Home Attending Physician: Ollie Meek MD Admitting Physician: Ollie Meek MD Referring Physician: Not on Staff, Referring MD Allergies, Adverse Reactions, Alerts No Known Allergies Immunizations Given and Recorded Vaccine Date Status Refusal Reason tetanus/diphtheria/pertussis, acel(Tdap) 12/01/20 Given tetanus/diphtheria/pertussis, acel(Tdap) 08/07/15 Given tetanus/diphtheria/pertussis, acel(Tdap) 12/11/12 Given influenza virus vaccine, inactivated 07/10/15 Give n Not Given Vaccine Date Status Refusal Reason pneumococcal 23-valent vaccine 01/02/16 Not Given Patient Refuses Medications furosemide 20 mg oral tablet 20 mg, 1, tablet, By Mouth, Daily, # 7 tablet, Refills 0, Tot. Refills 0, Maintenance, 11/27/22 19:33:00 EST, Route to Pharmacy Electronically, [facility]/pharmacy #[id number], Partial fill upon patient request if the prescription is for a schedule II opioid drug.... Start Date: 11/27/22 Stop Date: 12/04/22 Status: Ordered Xarelto 20 mg oral tablet 1 tablet = 20 mg, By Mouth, Daily at supper, # 90 tablet, 3 Refills, Maintenance, 03/09/22 10:32:00EDT, Tablet, [facility]/pharmacy #[id number], Partial fill upon patient request if [...] - [facility] Results Radiology Reports * Exam Date Time Procedure Performing Provider Status 11/27/22 6:[address] Abd/Pelvis W/ IV Contrast Only Isha Ponce; Auth (Verified) Notes: (CT Abd/Pelvis W/ IV Contrast Only) Reason For Exam: left flank ecchymosis. anticoagulated;Pain RESULT: CT Abd/Pelvis W/ IV Contrast Only CT Abd/Pelvis W/ IV Contrast Only Hx of Present Illness: Pt reports chest pain, dizziness, SOB for 3 days, worse since last night. Ptalso reports bilat leg pain and swelling. hx of PEs and DVTs. Pt is on xarelto; Reason: Pain; left flank ecchymosis. anticoagulated; Clinical Question(s): Hemorrhage Hematoma TECHNIQUE: Spiral CT through the abdomen and pelvis with IV contrast formatted in 3 planes. 100 cc of Omnipaque 300 was administered intravenously. This study was performed without oral contrast. Weight-based protocol using automatic tube modulation was used to optimize exposure parameters. CTDIvol Body: 34.29 mGy, DLP Body: 1917 mGy*cm. COMPARISON: CT angiography abdomen and pelvis dated 11/10/2017 FINDINGS: Special Inspector View Findings, Lines and Tubes: None. Visualized Chest: Lung bases are clear. No pleural effusion. The heart is normal in size. No pericardial effusion. Diaphragm: Normal. Liver: Normal. Gallbladder: Absent consistent with prior cholecystectomy. Bile ducts: No biliary ductal dilation. Spleen: Normal. Pancreas: Normal. Adrenal glands: Normal. Kidneys and ureters: No hydronephrosis, stones, or suspicious masses. Bladder: Under distended and grossly unremarkable. Reproductive organs: Unremarkable. Stomach, small bowel, and large bowel: Normal. Appendix: Normal. Peritoneum and retroperitoneum: No ascites or pneumoperitoneum. No omental or mesenteric lesions. Lymph nodes: No enlarged lymph nodes. Blood vessels: Normal. No aneurysm. No evidence of venous thrombosis. Abdominal and pelvic wall: Few tiny ill-defined small subcutaneous foci of soft tissue density in the lower anterior abdominal wall may be due to subcutaneous injections. Bones: No acute abnormality. IMPRESSION: No CT evidence of acute intra-abdominal or pelvic abnormality. WSN: [id number] Ordering Physician: Ollie Meek Dictated By: Jeanne Miller MD Dictated Date/Time: 11/27/22 7:20 pm Reviewed By: Jeanne Miller MD Signed By: Jeanne Miller MD Signed Date/Time: 11/27/22 7:20 pm Transcribed By: MELANIE Transcribed Date/Time: 11/27/22 7:14 pm * Exam Date Time Procedure Performing Provider Status 11/27/22 4:06 PM Chest 2 Views Frontal and Lat Angelique Martinez; Auth (Verified) Notes: (Chest 2 Views Frontal and Lat) Reason For Exam: Chest Pain;Other: RESULT: Chest 2 Views Frontal and Lat Chest 2 Views Frontal and Lat Hx of Present Illness: Pt reports chest pain, dizziness, SOB for 3 days, worse since last night. Ptalso reports bilat leg pain and swelling. hx of PEs and DVTs. Pt is on xarelto; Reason: Other:; Chest Pain; Clinical Question(s): Other: COMPARISON: 12/22/2018. FINDINGS: LINES AND TUBES: None. LUNGS AND PLEURA: Lung volumes are low. No focal opacity or volume loss. No pleural effusion. No pneumothorax. HEART, MEDIASTINUM AND TOAN: Heart is normal in size. Normal mediastinal and hilar contour. BONES AND SOFT TISSUES: No acute abnormality. IMPRESSION: No radiographic evidence of acute cardiopulmonary pathology. WSN: [id number] Ordering Physician: Jeffrey Coffey Dictated By: Nilo Ryan MD Dictated Date/Time: 11/27/22 4:24 pm Reviewed By: Nilo Ryan MD Signed By: Nilo Ryan MD Signed Date/Time: 11/27/22 4:24 pm Transcribed By: MELANIE Transcribed Date/Time: 11/27/22 4:23 pm Vital Signs Most recent to oldest [Reference Range]: 1 2 3 Height 165 cm (11/27/22 7:14 PM) 165 cm (11/27/22 3:28 PM) 165 cm (11/27/22 3:27 PM) Weight 154.8 kg (11/27/22 3:28 PM) Oxygen Saturation [94-100 %] 100 % (11/27/22 7:14 PM) 100 % (11/27/22 5:07 PM) 100 % (11/27/22 5:06 PM) Pulse Rate [55-90 bpm] 80 bpm (11/27/22 7:14 PM) 70 bpm (11/27/22 5:06 PM) 103 bpm *H* (11/27/22 3:28 PM) Blood Pressure [90-138/55-84 mm Hg] 150/96mm Hg *H* (11/27/22 7:14 PM) 124/59mm Hg (11/27/22 5:06 PM) 149/102mm Hg *H* (11/27/22 3:28 PM) Respiratory Rate [16-30 br/min] 14 br/min *L* (11/27/22 7:14 PM) 14 br/min *L* (11/27/22 5:06 PM) 16 br/min (11/27/22 3:28 PM) Temperature [96.8-100.4 DegF] 97.5 DegF (11/27/22 3:28 PM) Liters per Minute 2 L/min (11/27/22 7:14 PM) 2 L/min (11/27/22 5:06 PM) Mode of Delivery (Oxygen) Nasal cannula (11/27/22 7:14 PM) Room air (11/27/22 5:07 PM) Nasal cannula (11/27/22 5:06 PM) Blood pressure sites Arm, right (11/27/22 7:14 PM) Temperature Route Temporal (11/27/22 3:28 PM) Dry Weight 154.8 kg (11/27/22 3:28 PM) Weight Obtained Via Standing scale (11/27/22 3:28 PM) Dry Weight Obtained Via Standing scale (11/27/22 3:28 PM) Social History Social History Type Response Smoking Status Never (less than 100 in lifetime) entered on: 10/12/19 Sex Note * Fantasma PACHECO, Ollie Spivey: PERFORM Event Display: Patient Education Leaflets Authored Date: [id number] Leg Swelling in Both Legs ?? [id number] Leg Swelling in Both Legs Swelling of the feet, ankles, and legs is called edema. It's caused by extra fluid that has collected in the tissues. Extra fluid in the body settles in the lowest part because of gravity. This is why the legs and feet are most affected. Some of the causes for edema include: ??? Disease of the heart, such as congestive heart failure ??? Standing or sitting for long periodsof time ??? Infection of the feet or legs ??? Blood pooling in the veins of your legs (venous insufficiency) when the veins have less elasticity ??? Dilated veins in your lower leg (varicose veins) ??? Poor drainage of the lymphatic system ??? Some medicines, including some hormones such as control pills, some blood pressure medicines such as calcium channel blockers, steroids, and some antidepressants such as MAO inhibitors and tricyclics ??? Menstrual periods that cause you to retain fluids ??? Many types of kidney disease ??? Liver failure??or cirrhosis ??? , in which some swelling is normal, but a sudden increase in leg swelling or weight gain can be a sign of a dangerouscomplication of called eclampsia ??? Poor nutrition ??? Thyroid disease Treatment will depend on what is causing the swelling in your legs. Your healthcare provider may prescribe water pills (diuretics) to get rid of the extra fluid. Home care Follow these guidelines when caring for yourself at home: ??? Keep your legs up while lying or sitting. ??? If infection, injury, or recent surgery is causing the swelling, stay off your legs as muchas possible until symptoms get better. ??? If your healthcare provider says that your leg swelling is caused by venous insufficiency or varicose veins, don't sit or auditing coder one place for long periods of time. Take breaks and walk about every few hours. Brisk walking is a good exercise. It helps circulate the blood that has collected in your leg. Talk with your provider about using support stockings to stop daytime leg swelling. ??? If your provider says that heart disease is causing your leg swelling, follow a low-salt diet to stop extra fluid from staying in your body. You may also need medicine. ?? Follow-up care Follow up with your healthcare provider, or as advised. ?? When to get medical advice Call your healthcare provider right away if any of these occur: ??? Swelling in both legs or ankles that gets worse ??? Belly (abdominal) swelling ??? Redness, warmth, or swelling in 1 leg ??? Fever of 100.4??F (38??C) or higher,??or as advised by your provider ??? Yellow color to your skin or eyes ??? Rapid, unexplained weight gain ??? Having to sleep upright or use more pillows ? Call 911 Call 911 or get medical care right away if you have: ??? New shortness of breath or chest pain ??? Worsening shortness of breath or chest pain? Last Reviewed Date: 2022 ?? [id number] [employer]. All rights reserved. This information is not intended as a substitute for professional medical care. Always follow your healthcare professional's instructions. ?? * [employer] , CIS S: TRANSCRIBE Nilo Ryan MD: VERIFY Event Display: Result: Authored Date: [id number] Chest 2 Views Frontal and Lat Hx of Present Illness: Pt reports chest pain, dizziness, SOB for 3 days, worse since last night. Ptalso reports bilat leg pain and swelling. hx of PEs and DVTs. Pt is on xarelto; Reason: Other:; Chest Pain; Clinical Question(s): Other: COMPARISON: 12/22/2018. FINDINGS: LINES AND TUBES: None. LUNGS AND PLEURA: Lung volumes are low. No focal opacity or volume loss. No pleural effusion. No pneumothorax. HEART, MEDIASTINUM AND TOAN: Heart is normal in size. Normal mediastinal and hilar contour. BONES AND SOFT TISSUES: No acute abnormality. IMPRESSION: No radiographic evidence of acute cardiopulmonary pathology. WSN: [id number] Ordering Physician: Jeffrey Coffey Dictated By: Nilo Ryan MD Dictated Date/Time: 11/27/22 4:24 pm Reviewed By: Nilo Ryan MD Signed By: Nilo Ryan MD Signed Date/Time: 11/27/22 4:24 pm Transcribed By: MELANIE Transcribed Date/Time: 11/27/22 4:[address] Abdomen and Pelvis W contrast IV * [employer] , CIS S: TRANSCRIBE Jeanne Miller MD: VERIFY Event Display: Result: Authored Date: [id number] CT Abd/Pelvis W/ IV Contrast Only Hx of Present Illness: Pt reports chest pain, dizziness, SOB for 3 days, worse since last night. Ptalso reports bilat leg pain and swelling. hx of PEs and DVTs. Pt is on xarelto; Reason: Pain; left flank ecchymosis. anticoagulated; Clinical Question(s): Hemorrhage Hematoma TECHNIQUE: Spiral CT through the abdomen and pelvis with IV contrast formatted in 3 planes. 100 cc of Omnipaque 300 was administered intravenously. This study was performed without oral contrast. Weight-based protocol using automatic tube modulation was used to optimize exposure parameters. CTDIvol Body: 34.29 mGy, DLP Body: 1917 mGy*cm. COMPARISON: CT angiography abdomen and pelvis dated 11/10/2017 FINDINGS: Special Inspector View Findings, Lines and Tubes: None. Visualized Chest: Lung bases are clear. No pleural effusion. The heart is normal in size. No pericardial effusion. Diaphragm: Normal. Liver: Normal. Gallbladder: Absent consistent with prior cholecystectomy. Bile ducts: No biliary ductal dilation. Spleen: Normal. Pancreas: Normal. Adrenal glands: Normal. Kidneys and ureters: No hydronephrosis, stones, or suspicious masses. Bladder: Under distended and grossly unremarkable. Reproductive organs: Unremarkable. Stomach, small bowel, and large bowel: Normal. Appendix: Normal. Peritoneum and retroperitoneum: No ascites or pneumoperitoneum. No omental or mesenteric lesions. Lymph nodes: No enlarged lymph nodes. Blood vessels: Normal. No aneurysm. No evidence of venous thrombosis. Abdominal and pelvic wall: Few tiny ill-defined small subcutaneous foci of soft tissue density in the lower anterior abdominal wall may be due to subcutaneous injections. Bones: No acute abnormality. IMPRESSION: No CT evidence of acute intra-abdominal or pelvic abnormality. WSN: [id number] Ordering Physician: Ollie Meek Dictated By: Jeanne Miller MD Dictated Date/Time: 11/27/22 7:20 pm Reviewed By: Jeanne Miller MD Signed By: Jeanne Miller MD Signed Date/Time: 11/27/22 7:20 pm Transcribed By: MELANIE Transcribed Date/Time: 11/27/22 7:14 pm Patient Care team information Care Team Personnel Name: Bianca Birmingham MD Position: [facility] Primary Care Physician Member Role: PCP Address: Address: [address] [place] [address] [place] [address]- Name: Sheree Diego RN Position: [facility] RN Member Role: Primary Care Nurse Name: Janine Guzman Position: [facility] Outreach Member Role: Lifetime Consulting Physician Name: Rosalia Parsons RN Position: [facility] RN Member Role: Primary Care Nurse Name: Erika Sauceda RN Position: [facility] RN Member Role: Primary Care Nurse Name: Clara Velázquez RN Position: [facility] SN RN Member Role: Primary Care Nurse Name: Emma Flower RN Position: [facility] Hospital Manufacturing Engineering Professor Member Role: Primary Care Nurse Name: Summer Ratliff RN Position: [facility] RN Member Role: Primary Care Nurse Name: Elisha Rizo Position: [facility] ED OA Name: Mally Moody RN Position: [facility] ED RN W/OE and Tasks Member Role: Patient Care Provider Name: Ollie Meek MD Position: [facility] ED Medicine MD Member Role: Admitting Physician Address: Address: [address] [place] [address] [place] [address]- Care Team Related Persons Name: CELIO MERIDAIE Address: home [address] [place] [id number] Name: JEM KIMBALL Address: home [address] [place] [address] Name: BEE KIMBALL Address: [employer] Address: home [address] [place] [address]
--- OUTSIDE RECORDS SUMMARY | 2023-08-15 22:35 | XMS_ITS | Continuity of Care Document ---
Author Name Unknown Organization [facility] Address [address] [place] [address]- Care Team Providers Care Demo Coordinator Name Role Phone Griselda-Carmen PACHECO, Bianca Primary Care Physicia n Encounter [facility] Date(s): 07/27/21 - 08/26/21 [facility] Care [address] [place] [address]- Attending Physician: Alex Traore Admitting Physician: Alex Traore Referring Physician: AdmtrAlex Allergies, Adverse Reactions, Alerts Substance Reaction Severity [...] 12/30/20 7:55:00 EDT, Route to Pharmacy Electronically, [facility]/pharmacy #[id number], Partial fill upon patient request if the prescription... Start Date: 12/30/20 Status: Ordered docusate sodium 100 mg oral capsule 1 capsule = 100 mg, By Mouth, 2 times a day, PRN as needed for constipation, # 60 capsule, 0 Refills, Maintenance, 01/21/21 7:55:00 EDT, Capsule, [facility]/pharmacy #[id number], Partial fill upon patient requestif the prescription is for a schedule II opioid elisha... Start Date: 01/21/21 Status: Ordered ibuprofen 600 mg oral tablet 600 mg, 1, tablet, By Mouth, Every 6 hours, PRN, # 30 tablet, Refills 1, Tot. Refills 1, Maintenance, Pain , Moderate, 01/21/21 7:55:00 EDT, Route to Pharmacy Electronically, [facility]/pharmacy #[id number], Partial fill upon patient request if the prescription is... Start Date: 01/21/21 Status: Ordered MiraLax oral powder for reconstitution = 17 Gm, By Mouth, Daily, dissolve in water before taking, # 527 Gm, 1 Refills, Maintenance, 12/15/20 11:23:00 EDT, REC Powder, [facility]/pharmacy #[id number], Partial fill upon patient request if the prescription is for a schedule II opioid drug., 17 Gm By Mouth... Start Date: 12/15/20 Status: Ordered omeprazole 40 mg oral enteric coated capsule See Instructions, TAKE 1 CAPSULE BY MOUTH DAILY BEFORE A MEAL, # 30 capsule, 0 Refills, Maintenance, [id number], 165, cm, 01/18/21 1:48:00 EDT, Height, 170.5, [...] - placed on this medication at a [facility] vist on 06/11/2020 Social History Social History Type Response Smoking Status Never (less than 100 in lifetime) entered on: 10/12/19 Sex
--- OUTSIDE RECORDS SUMMARY | 2023-08-15 22:35 | XMS_ITS | Continuity of Care Document ---
Author Name Unknown Organization [facility] Address [address] [place] [address]- Care Team Providers Care Emergency Medicine Specialist Name Role Phone Griselda-Carmen PACHECO, Bianca Primary [facility] Physicia n [id number] Date[facility] 12[facility]20 - 03/04/[address] [address]- Attending Physician: Not on Staff, Attending MD [...] 12/30/20 7:55:00 EDT, Route to Pharmacy Electronically, [facility]/pharmacy #[id number], Partial fill upon patient request if [...] days, # 180 mL, 12 Refills, Acute 12/12/23 15:31:00 EDT, 09/28/20 15:31:00 EST, Solution, [id number], 166, cm, 09/08/20 9:21:00 EST, Height, 158.6, kg, 06/29/20 18:27:00 EDT, Dry We... Start Date: 09/28/20 Stop Date: 12/12/23 Status: Ordered MiraLax oral powder for reconstitution [...] 30 capsule, 0 Refills, Maintenance, [facility], 165, cm, 01/18/21 1:48:00 EDT, Height, 170.5, [...] 3 Refills, Maintenance, 06/11/20 15:01:00 EDT, Tablet, [facility]/pharmacy #[id number], 1 tablet By Mouth Daily, 165, [...] medication at a [facility] vist on 06/11/2020 Social History Social History Type Response Smoking Status Never (less than 100 in lifetime) entered on: 10/12/19 Sex
--- OUTSIDE RECORDS SUMMARY | 2023-08-15 22:35 | XMS_ITS | Continuity of Care Document ---
Author Name Unknown Organization [facility] ter Address [address] [place] [address]- Care Team Providers Care Senior Analytical Chemist Name Role Phone Griselda-Carmen PACHECO, Bianca Primary Care Physicia n Encounter [facility] Date(s): 01/08/21 - 01/08/[address] [address]- Discharge Disposition: A-D/C Home Attending Physician: Donna Anguiano MD Admitting Physician: Donna Anguiano MD Referring Physician: Jeanette Lipscomb DO Allergies, Adverse Reactions, Alerts Substance Reaction Severity [...] Dry Weight Start Date: 06/11/20 Status: Ordered aspirin 81 mg oral tablet, chewable 2 tablet = 162 mg, Chew, Daily at bedtime, # 180 tablet, 2 Refills, Maintenance, 07/20/20 14:39:00 EDT, Chew Tablet, [facility]/pharmacy #[id number], 166, cm, 07/16/20 13:29:00 EDT, Height, 158.6, kg, 06/29/20 18:27:00 EDT, Dry Weight Start Date: 07/20/20 Stop Date: 04/16/21 Status: Ordered Colace sodium 100 mg oral capsule 100 mg, 1, capsule, By Mouth, 2 times a day, PRN, # 30 capsule, Refills 2, Tot. Refills 2, Maintenance, for constipation, 12/30/20 7:55:00 EDT, Route to Pharmacy Electronically, [facility]/pharmacy #[id number], Partial fill upon patient request if the prescription... Start Date: 12/30/20 Status: Ordered FREESTYLE LITE GLUCOSE METER FREESTYLE LITE GLUCOSE METER, See Instructions, # 1 each, Refills 0, Tot. Refills 0, Maintenance, FOR GLUCOSE MONITORING DURING THE , 12/29/20 11:24:00 EDT, Supply, 166, cm, 12/29/20 10:48:00 EDT, Height, 158.6, kg, 06/29/20 18:27:00 EDT, Dry... Start Date: 12/29/20 Status: Ordered FREESTYLE LITE LANCETS FREESTYLE LITE LANCETS, See Instructions, # 200 each, Refills 5, Tot. Refills 5, Maintenance, GLUCOSE MONITORING 4 TIMES A DAY DURING , 12/29/20 11:24:00 EDT, Supply, 166, cm, 12/29/20 10:48:00 EDT, Height, 158.6, kg, 06/29/20 18:27:00 EDT, D... Start Date: 12/29/20 Status: Ordered FREESTYLE LITE STRIPS FREESTYLE LITE STRIPS, See Instructions, # 200 each, Refills 5, Tot. Refills 5, Maintenance, GLUCOSE MONITORING 4 TIMES PER DAY DURING THE , 12/29/20 11:24:00 EDT, Supply, 166, cm, 12/29/20 10:48:00 EDT, Height, 158.6, kg, 06/29/20 18:27:00 E... Start Date: 12/29/20 Status: Ordered Lovenox 100 mg/mL injectable solution 1 mL = 100 mg, Subcutaneous Injection, Every 12 hours, for 90 days, # 180 mL, 12 Refills, Acute 12/12/23 15:31:00 EDT, 09/28/20 15:31:00 EST, Solution, [facility]/pharmacy #[id number], 166, cm, 09/08/20 9:21:00 EST, Height, 158.6, kg, 06/29/20 18:27:00 EDT, Dry We... Start Date: 09/28/20 Stop Date: 12/12/23 Status: Ordered MiraLax oral powder for reconstitution = 17 Gm, By Mouth, Daily, dissolve in water before taking, # 527 Gm, 1 Refills, Maintenance, 12/15/20 11:23:00 EDT, REC Powder, [facility]/pharmacy #[id number], Partial fill upon patient request if the prescription is for a schedule II opioid drug., 17 Gm By Mouth... Start Date: 12/15/20 Status: Ordered omeprazole 40 mg oral enteric coated capsule See Instructions, TAKE 1 CAPSULE BY MOUTH DAILY BEFORE A MEAL, # 30 capsule, 0 Refills, Maintenance, [id number], 166, cm, 12/29/20 10:48:00 EDT, Height, 158.6, kg, 06/29/20 18:27:00 EDT, Dry Weight Start Date: 12/29/20 Status: Ordered Peak Flow Meter (Adult) See Instructions, # 1 each, Maintenance, see instructions, 11/03/20 12:02:00 EST, Supply, 166, cm, 11/03/20 10:47:00 EST, Height, 158.6, kg, 06/29/20 18:27:00 EDT, Dry Weight Start Date: 11/03/20 Status: Ordered Multivitamins with FA 0.8 mg oral tablet 1 tablet, By Mouth, Daily, # 100 tablet, 3 Refills, Maintenance, 06/11/20 15:01:00 EDT, Tablet, [facility]/pharmacy #[id number], 1 tablet By Mouth Daily, 165, cm, 06/11/20 14:30:00 EDT, Height, 161.2, kg, 03/26/20 20:37:00 EDT, Dry Weight Start Date: 06/11/20 Status: Ordered Problem List Condition Effective Dates Status Health Status Inform ant DVT RLE(Confirmed) 1 Active Blood type A-(Confirmed) 03/03/15 Active Constipation in (Confirmed) Active Negative screen Cystic 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
--- OUTSIDE RECORDS SUMMARY | 2023-08-15 22:35 | XMS_ITS | Continuity of Care Document ---
Author Name Unknown Organization [facility] Address [address] [place] [address]- Care Team Providers Care Public Health Veterinarian Name Role Phone Griselda-Carmen PACHECO, Bianca Primary Care Physicia n Encounter [facility] Date(s): 05/14/22 - 05/14/[address] [address]- Discharge Disposition: A-D/C Home Attending Physician: Jeffrey Coffey MD Admitting Physician: Jeffrey Coffey MD Referring Physician: Not on Staff, Referring MD Allergies, Adverse Reactions, Alerts No Known Allergies Immunizations Given and Recorded Vaccine Date Status Refusal Reason tetanus/diphtheria/pertussis, acel(Tdap) 12/01/20 Given tetanus/diphtheria/pertussis, acel(Tdap) 08/07/15 Given tetanus/diphtheria/pertussis, acel(Tdap) 12/11/12 Given influenza virus vaccine, inactivated 07/10/15 Give n Not Given Vaccine Date Status Refusal Reason pneumococcal 23-valent vaccine 01/02/16 Not Given Patient Refuses Medications Augmentin 875 mg-125 mg oral tablet 1 tablet, By Mouth, Every 12 hours, for 7 days, # 14 tablet, 0 Refills, Acute 05/21/22 20:42:00 EDT, 05/14/22 20:42:00 EDT, Tablet, [id number], Partial fill upon patient request if the prescription is for a schedule II opioid drug., 165, cm, 0... Start Date: 05/14/22 Stop Date: 05/21/22 Status: Ordered Colace sodium 100 mg oral capsule 100 mg, 1, capsule, By Mouth, 2 times a day, PRN, # 20 capsule, Refills 0, Tot. Refills 0, Maintenance, for constipation, 05/14/22 20:43:00 EDT, Route to Pharmacy Electronically, [id number], Partial fill upon patient request if the prescriptio... Start Date: 05/14/22 Status: Ordered lidocaine 4% topical cream 1 application, Topically, 3 times a day, # 15 Gm, 0 Refills, Acute 05/20/22 21:11:00 EDT, 05/14/22 21:10:00 EDT, Cream, [id number], Partial fill upon patient request if the prescription is for a schedule II opioid drug., 1 application Topicall... Start Date: 05/14/22 Stop Date: 05/20/22 Status: Ordered Tylenol 325 mg oral capsule [...] Date: 03/09/22 Status: Ordered Problem List Condition Effective Dates Status Health Status Inform ant DVT RLE(Confirmed) 1 Active Blood type A-(Confirmed) 03/03/15 Active Constipation in (Confirmed) Active Negative screen Cystic fibrosis(Confirmed) 03/04/15 Active Gestational diabetes mellitus(Confirmed) Active H/O varicella as a child(Confirmed) Active H/O syncope(Confirmed) Active Severe obesity(Confirmed) Active 1Pt currently on Lovenox 160mg BID - placed on this medication at a [facility] vist on 06/11/2020 Vital Signs Most recent to oldest [Reference Range]: 1 2 Height 165 cm (05/14/22 7:14 PM) Weight 138.7 kg (05/14/22 7:14 PM) Oxygen Saturation [94-100 %] 98 % (05/14/22 7:14 PM) Pulse Rate [55-90 bpm] 73 bpm (05/14/22 9:00 PM) 85 bpm (05/14/22 7:14 PM) Blood Pressure [90-138/55-84 mm Hg] 126/ 71mm Hg (05/14/22 9:00 PM) 132/84mm Hg (05/14/22 7:14 PM) Respiratory Rate [16-30 br/min] 20 br/mi n (05/14/22 7:14 PM) Temperature [96.8-100.4 DegF] 98.1 DegF (05/14/22 7:14 PM) Mode of Delivery (Oxygen) Room air (05/14/22 7:14 PM) Blood pressure sites Arm, right (05/14/22 7:14 PM) Temperature Route Oral (05/14/22 7:14 PM) Dry Weight 138.7 kg (05/14/22 7:14 PM) Weight Obtained Via Standing scale (05/14/22 7:14 PM) Dry Weight Obtained Via Standing scale (05/14/22 7:14 PM) Social History Social History Type Response Smoking Status Never (less than 100 in lifetime) entered on: 10/12/19 Sex
--- OUTSIDE RECORDS SUMMARY | 2023-08-15 22:35 | XMS_ITS | Continuity of Care Document ---
Author Name Unknown Organization [facility] Address [address] [place] [address]- Care Team Providers Care Space Operations Name Role Phone Griselda-Carmen PACHECO, Bianca Primary Care Physicia n Encounter [facility] [place] Date(s): 10/06/20 - 11/05/[facility] [address] [place] [address]- Attending Physician: AdmAlex saul Admitting Physician: Admtr, Ar8 Referring Physician: Admtr, Ar8 Allergies, Adverse Reactions, Alerts Substance Reaction Severity Status NKA Active Immunizations Given and Recorded Vaccine Date Status Refusal Reason tetanus/diphtheria/pertussis, acel(Tdap) 08/07/15 Given tetanus/diphtheria/pertussis, acel(Tdap) 12/11/12 [...] Refills, Maintenance, 07/20/20 14:39:00 EDT, Chew Tablet, [id number], 166, cm, 07/16/20 13:29:00 EDT, Height, 158.6, kg, 06/29/20 18:27:00 EDT, Dry Weight Start Date: 07/20/20 Stop Date: 04/16/21 Status: Ordered Colace sodium 100 mg oral capsule 100 mg, 1, capsule, By Mouth, 2 times a day, PRN, # 20 capsule, Refills 0, Tot. Refills 0, Maintenance, for constipation, 11/03/20 12:03:00 EST, Route to Pharmacy Electronically, [facility]/pharmacy #[id number], Partial fill upon patient request if the prescriptio... Start Date: 11/03/20 Status: Ordered Lovenox 100 mg/mL injectable solution 1 mL = 100 mg, Subcutaneous Injection, Every 12 hours, for 90 days, # 180 mL, 12 Refills, Acute 12/12/23 15:31:00 EDT, 09/28/20 15:31:00 EST, Solution, [facility]/pharmacy #[id number], 166, cm, 09/08/20 9:21:00 EST, Height, 158.6, kg, 06/29/20 18:27:00 EDT, Dry We... Start Date: 09/28/20 Stop Date: 12/12/23 Status: Ordered Peak Flow Meter (Adult) See Instructions, # 1 each, Maintenance, see instructions, 11/03/20 12:02:00 EST, Supply, 166, cm, 11/03/20 10:47:00 EST, Height, 158.6, kg, 06/29/20 18:27:00 EDT, Dry Weight Start Date: 11/03/20 Status: Ordered Multivitamins with FA 0.8 mg oral tablet 1 tablet, By Mouth, Daily, # 100 tablet, 3 Refills, Maintenance, 06/11/20 15:01:00 EDT, Tablet, [facility]/pharmacy #[id number], 1 tablet By Mouth Daily, 165, cm, 06/11/20 14:30:00 EDT, Height, 161.2, kg, 03/26/20 20:37:00 EDT, Dry Weight Start Date: 06/11/20 Status: Ordered Pulmicort Flexhaler 180 mcg 2 puffs, Inhalation, Daily, # 1 Unknown, 0 Refills, Maintenance, 10/26/20 23:21:00 EST, [facility] [id number], 30, INHALE 2 PUFFS DAILY, 166, cm, 10/06/20 8:33:00 EST, Height, 158.6, kg, 06/29/20 18:27:00 EDT, Dry Weight Start Date: 10/26/20 Status: Ordered Problem List Condition Effective Dates Status Health Status Inform ant DVT RLE(Confirmed) 1 Active Blood type A-(Confirmed) 03/03/15 Active Negative screen Cystic fibrosis(Confirmed) 03/04/15 Active H/O varicella as a child(Confirmed) Active H/O syncope(Confirmed) Active 1Pt currently on Lovenox 160mg BID - placed on this medication at a [facility] vist on 06/11/2020 Social History Social History Type Response Smoking Status Never (less than 100 in lifetime) entered on: 10/12/19 Sex Female
--- OUTSIDE RECORDS SUMMARY | 2023-08-15 22:35 | XMS_ITS | Continuity of Care Document ---
Author Name Unknown Organization [facility] ter Address [address] [place] [address]- Care Team Providers Care Credit Counselor Name Role Phone Griselda-Bianca Morales MD Primary Care Physicia n Encounter [facility] [place] Date(s): 08/30/22 - 08/30/[address] [address]- Discharge Disposition: A-D/C Walkout Attending Physician: Not on Staff, Attending MD Admitting Physician: Not on Staff, Admitting MD Referring Physician: Not on Staff, Referring [...] 05/14/22 20:43:00 EDT, Route to Pharmacy Electronically, [facility]/pharmacy #[id number], Partial fill upon patient request if the prescriptio... Start Date: 05/14/22 Status: Ordered oxyCODONE 5 mg oral capsule 1 capsule = 5 mg, By Mouth, Every 6 hours, PRN as needed for pain, 0 Refills, Maintenance, 08/30/2213:35:00 EST, Capsule, Partial fill upon patient request if the prescription is for a schedule II opioid drug. Start Date: 08/30/22 Status: Ordered predniSONE 10 mg oral tablet 1 tablet = 10 mg, By Mouth, Daily, # 10 tablet, 0 Refills, Maintenance, 08/30/22 13:34:00 EST, Tablet, Partial fill upon patient request if the prescription is for a schedule II opioid drug. Start Date: 08/30/22 Status: Ordered Tylenol 325 mg oral capsule [...] - placed on this medication at a [facility] vist on 06/11/2020 Social History Social History Type Response Smoking Status Never (less than 100 in lifetime) entered on: 10/12/19 Sex Patient Care team information Care Team Personnel Name: Bianca Birmingham MD Position: [facility] Primary Care Physician Member Role: PCP Address: Address: [address] [place] [address] [place] [address]- Name: Sheree Diego RN Position: [facility] RN Member Role: Primary Care Nurse Name: Janine Guzman Position: [facility] Outreach Member Role: Lifetime Consulting Physician Name: Rosalia Parsons RN Position: [facility] RN Member Role: Primary Care Nurse Name: Erika Sauceda RN Position: [facility] RN Member Role: Primary Care Nurse Name: Clara Velázquez RN Position: [facility] RN Member Role: Primary Care Nurse Name: Emma Flower RN Position: [facility] Hospital Drafter [employer] Design Layout Member Role: Primary Care Nurse Name: Summer Ratliff RN Position: [facility] RN Member Role: Primary Care Nurse Care Team Related Persons Name: YAW MERIDA Address: [address] [address] Name: JEM KIMBALL Address: home [address] [place] [address] Name: BEE KIMBALL Address: [facility] Address: [address]
--- OUTSIDE RECORDS SUMMARY | 2023-08-15 22:35 | XMS_ITS | Continuity of Care Document ---
Author Name Unknown Organization [facility] ter Address [address] [place] [address]- Care Team Providers Care Balance Weigher Name Role Phone Griselda-Carmen PACHECO, Bianca Primary Care Physicia n [place] [facility] [place]16[place] - 02/21/[address] [address] Attending Physician: Donna Anguiano MD Admitting Physician: [...] 12/30/20 7:55:00 EDT, Route to Pharmacy Electronically, [facility]/pharmacy #[id number], Partial fill upon patient request if [...] 30 capsule, 0 Refills, Maintenance, [id number], 165, cm, 01/18/21 1:48:00 EDT, Height, 170.5, [...] - placed on this medication at a [facility] vist on 06/11/2020 Social History Social History Type Response Smoking Status Never (less than 100 in lifetime) entered on: 10/12/19 Sex
--- OUTSIDE RECORDS SUMMARY | 2023-08-15 22:35 | XMS_ITS | Continuity of Care Document ---
Author Name Unknown Organization [facility] Address [address] [place] [address]- Care Team Providers Care Computer Science Professor Name Role Phone Griselda-Carmen PACHECO, Bianca Primary Care Physicia n Encounter [facility] Date(s): 03/03/23 - 04/02/23 [facility] [address] [place] [address]- Attending Physician: Alex Traore Admitting Physician: Alex Traore Referring Physician: AdmtrAlex Allergies, Adverse Reactions, Alerts No Known Allergies [...] 11/27/22 19:33:00 EST, Route to Pharmacy Electronically, [facility]/pharmacy #[id number], Partial fill upon patient request if the prescription is for a schedule II opioid drug.... Start Date: 11/27/22 Stop Date: 12/04/22 Status: Ordered Xarelto 20 mg oral tablet 1 tablet = 20 mg, By Mouth, Daily at supper, # 90 tablet, 3 Refills, Maintenance, 03/09/22 10:32:00EDT, Tablet, [facility]/pharmacy #[id number], Partial fill upon patient request [...] Team Personnel Name: Bianca Birmingham MD Position: [facility] Physician - Primary Care Member Role: PCP Address: Address: [address] [place] [id number] Name: Sheree Diego RN Position: [facility] RN Member Role: Primary Care Nurse Name: Janine Guzman Position: [facility] Outreach Member Role: Lifetime Consulting Physician Name: Rosalia Parsons RN Position: [facility] RN Member Role: Primary Care Nurse Name: Erika Sauceda RN Position: [facility] RN Member Role: Primary Care Nurse Name: Clara Velázquez RN Position: [facility] RN Member Role: Primary Care Nurse Name: Emma Flower RN Position: [facility] Hospital Middle [employer] Reading Teacher Member Role: Primary Care Nurse Name: Summer Ratliff RN Position: [facility] RN Member Role: Primary Care Nurse Care Team Related Persons Name: LUIS MANUELYAW ROSARIO Address: home [address] [place] [address] Name: JEM KIMBALL Address: home [address] [place] [address] Name: BEE KIMBALL Address: AM[facility]ANCI Address: home [address] [place] [address] [place]
--- OUTSIDE RECORDS SUMMARY | 2023-08-15 22:35 | XMS_ITS | Continuity of Care Document ---
Author Name Unknown Organization [facility] Address [address] [place] [address]- Care Team Providers Care Program Mgr Name Role Phone Griselda-Carmen PACHECO, Bianca Primary Care Physicia n [id number] Date(s): 09/08/20 - 10/08/20 [facility] [address] [place] [address]- Attending Physician: Alex Traore Admitting Physician: Admtr, Alex Referring Physician: Admtr, Ar8 Allergies, Adverse Reactions, [...] Date: 07/20/20 Stop Date: 04/16/21 Status: Ordered budesonide 180 mcg/inh inhalation powder 2 puffs, Inhalation, Daily, # 1 each, 0 Refills, Maintenance, 10/06/20 9:39:00 EST, Powder, [id number], Partial fill upon patient request if the prescription is for a schedule II opioid drug., 2 puffs Inhalation Daily, 166, cm, 10/06/20 8:33:0... Start Date: 10/06/20 Status: Ordered Lovenox 100 mg/mL injectable solution 1 mL = 100 mg, Subcutaneous Injection, Every 12 hours, for 90 days, # 180 mL, 12 Refills, Acute 12/12/23 15:31:00 EDT, 09/28/20 15:31:00 EST, Solution, [id number], 166, cm, 09/08/20 9:21:00 EST, Height, 158.6, kg, 06/29/20 18:27:00 EDT, Dry We... Start Date: 09/28/20 Stop Date: 12/12/23 Status: Ordered Multivitamins with FA 0.8 mg [...] - placed on this medication at a [facility] vist on 06/11/2020 Social History Social History Type Response Smoking Status Never (less than 100 in lifetime) entered on: 10/12/19 Sex Female
--- OUTSIDE RECORDS SUMMARY | 2023-08-15 22:35 | XMS_ITS | Continuity of Care Document ---
Author Name Unknown Organization [facility] ter Address [address] [place] [address]- Care Team Providers Care Senior Windows Engineer Name Role Phone Griselda-Carmen PACHECO, Bianca Primary Care Physicia n [place] [facility] [place](s): 01/18/21 - 01/21/[address] [address] Discharge Disposition: A-D/C Home Attending Physician: Adelaide Porras DO Admitting Physician: Adelaide Porras DO Referring Physician: Adelaide Porras DO Allergies, Adverse Reactions, Alerts Substance Reaction Severity Status NKA Active Immunizations Given and Recorded Vaccine Date Status Refusal Reason tetanus/diphtheria/pertussis, acel(Tdap) 12/01/20 Given tetanus/diphtheria/pertussis, acel(Tdap) 08/07/15 Given tetanus/diphtheria/pertussis, acel(Tdap) 12/11/12 Given influenza virus vaccine, inactivated 07/10/15 Give n Not Given Vaccine Date Status Refusal Reason pneumococcal 23-valent vaccine 01/02/16 Not Given Patient Refuses Medications Acetaminophen Tablet 650 mg, Tablet, By Mouth, Every 4 hours, PRN for Pain , Mild, (1-3), may give 325mg per patient preference and re-dose with 325mg within 4 hours, if needed. Patient should only receive a total of 650mg of Acetaminophen every 4 hours., Routine, 01/19... Start Date: 01/19/21 Stop Date: 01/21/21 Status: Discontinued albuterol 0.083% inhalation solution 6 mL = [...] prescription is... Start Date: 01/21/21 Status: Ordered Ibuprofen Tablet 800 mg, Tablet, By Mouth, Every 8 hours, PRN for Pain , Moderate, (4-6), may give 400mg per patientpreference and re-dose with 400mg within 8 hours if needed. Patient should only receive a total of 800mg of Ibuprofen every 8 hours., Routine, ... Start Date: 01/19/21 Stop Date: 01/21/21 Status: Discontinued Lovenox 100 mg/mL injectable solution 1 mL [...] Refills, Maintenance, 12/15/20 11:23:00 EDT, REC Powder, [facility]/pharmacy #[id number], Partial fill upon patient request if the prescription is for a schedule II opioid drug., 17 Gm By Mouth... Start Date: 12/15/20 Status: Ordered omeprazole 40 mg oral enteric coated capsule See Instructions, TAKE 1 CAPSULE BY MOUTH DAILY BEFORE A MEAL, # 30 capsule, 0 Refills, Maintenance, [id number], 165, cm, 01/18/21 1:48:00 EDT, Height, 170.5, [...] Refills, Maintenance, 01/21/21 7:55:00 EDT, Capsule, [id number], Partial fill upon patient request if the [...] - placed on this medication at a [facility] vist on 06/11/2020 Vital Signs Most recent to oldest [Reference Range]: 1 2 3 Height 165 cm (01/21/21 9:00 AM) 165 cm (01/21/21 7:00 AM) 165 cm (01/21/21 2:10 AM) Weight 170.1 kg (01/20/21 10:01 AM) 170.5 kg (01/18/21 1:48 AM) 170.5 kg (01/17/21 10:12 PM) Oxygen Saturation [94-100 %] 94 % (01/21/21 9:00 AM) 97 % (01/21/21 7:00 AM) 97 % (01/21/21 2:10 AM) Pulse Rate [55-90 bpm] 96 bpm *H* (01/21/21 9:00 AM) 86 bpm (01/21/21 7:00 AM) 86 bpm (01/21/21 2:10 AM) Body Mass Index [18.5-24.99] 62.63 *>HHI* (01/18/21 1:48 AM) 62.63 *>HHI* (01/17/21 10:12 PM) Blood Pressure [90-138/55-84 mm Hg] 136/73mm Hg (01/21/21 9:00 AM) 138/82mm Hg (01/21/21 7:00 AM) 128/64mm Hg (01/21/21 2:10 AM) Respiratory Rate [16-30 br/min] 20 br/min (01/21/21 11:00 AM) 20 br/min (01/21/21 11:00 AM) 20 br/min (01/21/21 9:00 AM) Temperature [96.8-100.4 DegF] 98.3 DegF (01/21/21 9:00 AM) 98.2 DegF (01/20/21 10:00 PM) 98.8 DegF (01/20/21 2:05 PM) Mode of Delivery (Oxygen) Room air (01/21/21 7:00 AM) Room air (01/21/21 2:10 AM) Room air (01/20/21 10:00 PM) Blood pressure sites Arm, right (01/21/21 9:00 AM) Arm, left (01/19/21 5:02 AM) Arm, left (01/18/21 8:07 PM) Temperature Route Oral (01/21/21 9:00 AM) Oral (01/20/21 10:00 PM) Oral (01/20/21 2:05 PM) Dry Weight 170.5 kg (01/18/21 1:48 AM) 170.5 kg (01/17/21 10:12 PM) Weight Obtained Via Patient/family stated (01/18/21 1:48 AM) Standing scale (01/17/21 10:12 PM) Dry Weight Obtained Via Patient/family stated (01/18/21 1:48 AM) Standing scale (01/17/21 10:12 PM) Social History Social History Type Response Smoking Status Never (less than 100 in lifetime) entered on: 10/12/19 Sex Female
--- OUTSIDE RECORDS SUMMARY | 2023-08-15 22:35 | XMS_ITS | Continuity of Care Document ---
Author Name Unknown Organization [facility] Address [address] [place] [address]- Care Team Providers Care Food Editor Name Role Phone Griselda-Carmen PACHECO, Bianca Primary Care Physicia n Encounter [facility] [place] Date(s): 01/21/21 - 02/20/[address] [address]- Allergies, Adverse Reactions, Alerts Substance Reaction Severity [...] 30 capsule, 0 Refills, Maintenance, [facility], 165, cm, 01/18/21 1:48:00 EDT, Height, 170.5, [...] - placed on this medication at a [facility] vist on 06/11/2020 Social History Social History Type Response Smoking Status Never (less than 100 in lifetime) entered on: 10/12/19 Sex
--- OUTSIDE RECORDS SUMMARY | 2023-08-15 22:35 | XMS_ITS | Continuity of Care Document ---
Author Name Unknown Organization [facility] Address [address] [place] [address]- Care Team Providers Care Senior Process Engineer Name Role Phone Griselda-Carmen PACHECO, Bianca Primary Care Physicia n Encounter [facility] Date(s): 08/27/20 - 09/26/[address] [address]- Allergies, Adverse Reactions, Alerts Substance Reaction Severity [...] Ordered aspirin 81 mg oral tablet, chewable 1 tablet = 81 mg, Chew, Daily at bedtime, # 90 tablet, 2 Refills, Maintenance, 07/20/20 14:39:00 EDT, Chew Tablet, [id number], 166, cm, 07/16/20 13:29:00 EDT, Height, 158.6, kg, 06/29/20 18:27:00 EDT, Dry Weight Start Date: 07/20/20 Stop Date: 04/16/21 Status: Ordered diclofenac 1% topical gel 1 application, Topically, 2 times a day, # 100 Gm, 0 Refills, Maintenance, 03/26/20 20:22:00 EDT, Gel, [id number], 165, cm, 03/26/20 18:22:00 EDT, Height, 161.2, kg, 03/26/20 18:22:00 EDT, Dry Weight Start Date: 03/26/20 Status: Ordered doxylamine 25 mg oral tablet 0.5 tablet = 12.5 mg, By Mouth, 3 times a day, PRN Nausea, # 15 tablet, 0 Refills, Maintenance, 07/16/20 14:46:00 EDT, Tablet, [id number], 166, cm, 07/16/20 13:29:00 EDT, Height, 158.6, kg, 06/29/20 18:27:00 EDT, Dry Weight Start Date: 07/16/20 Stop Date: 07/26/20 Status: Ordered Lovenox 100 mg/mL injectable solution 1.6 mL = 160 mg, Subcutaneous Injection, Every 12 hours, for 90 days, # 288 mL, 12 Refills, Acute 08/25/23 15:00:00 EST, 06/11/20 15:00:00 EDT, Solution, [id number], 165, cm, 06/11/20 14:30:00 EDT, Height, 161.2, kg, 03/26/20 20:37:00 EDT, Dry... Start Date: 06/11/20 Stop Date: 08/25/23 Status: Ordered Multivitamins with FA 0.8 mg [...] - placed on this medication at a [facility] vist on 06/11/2020 Social History Social History Type Response Smoking Status Never (less than 100 in lifetime) entered on: 10/12/19 Sex Female
--- OUTSIDE RECORDS SUMMARY | 2023-08-15 22:35 | XMS_ITS | Continuity of Care Document ---
Author Name Unknown Organization [facility] Address [address] [place] [address]- Care Team Providers Care Landscape Contractor Name Role Phone Yuma-Carmen PACHECO, Bianca Primary Care Physicia n Encounter [facility] Date(s): 06/29/20 - 06/29/[address] [address]- [facility] Encounter Diagnosis Shortness of breath(Final) - 06/29/20 First trimester (Final) - 06/29/20 Discharge Disposition: A-D/C Home Attending Physician: Cash Adams MD Admitting Physician: Cash Adams MD Referring Physician: Not on Staff, Referring MD Allergies, Adverse Reactions, Alerts Substance Reaction [...] Dry Weight Start Date: 06/11/20 Status: Ordered diclofenac 1% topical gel 1 application, Topically, 2 times a day, # 100 Gm, 0 Refills, Maintenance, 03/26/20 20:22:00 EDT, Gel, [id number], 165, cm, 03/26/20 18:22:00 EDT, Height, 161.2, kg, 03/26/20 18:22:00 EDT, Dry Weight Start Date: 03/26/20 Status: Ordered Lovenox 100 mg/mL injectable solution 1.6 mL = 160 mg, Subcutaneous Injection, Every 12 hours, for 90 days, # 288 mL, 12 Refills, Acute 08/25/23 15:00:00 EST, 06/11/20 15:00:00 EDT, Solution, [facility]/pharmacy #[id number], 165, cm, 06/11/20 14:30:00 EDT, Height, 161.2, kg, 03/26/20 20:37:00 EDT, Dry... Start Date: 06/11/20 Stop Date: 08/25/23 Status: Ordered Multivitamins with FA 0.8 mg oral tablet 1 tablet, By Mouth, Daily, # 100 tablet, 3 Refills, Maintenance, 06/11/20 15:01:00 EDT, Tablet, [facility]/pharmacy #[id number], 1 tablet By Mouth Daily, 165, cm, 06/11/20 14:30:00 EDT, Height, 161.2, kg, 03/26/20 20:37:00 EDT, Dry Weight Start Date: 06/11/20 Status: Ordered warfarin 10 mg oral tablet 1 tablet = 10 mg, By Mouth, Every other day, # 30 tablet, 0 Refills, Maintenance, 10/12/19 11:38:00EST, Tablet Start Date: 10/12/19 Status: Ordered Warfarin Tablet = 15 mg, By Mouth, Every other day, 0 Refills, Maintenance, 10/12/19 11:39:00 EST, Tablet Start Date: 10/12/19 Status: Ordered Problem List Condition Effective Dates Status Health Status Inform ant DVT RLE(Confirmed) 1 Active Blood type A-(Confirmed) 03/03/15 Active Negative screen Cystic fibrosis(Confirmed) 03/04/15 Active H/O varicella as a child(Confirmed) Active Normal screen 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 H/O hemorrhoids(Confirmed) Active H/O IBS(Confirmed) Active H/O syncope(Confirmed) Active H/O GHTN(Confirmed) Active Obesity (BMI 35.0-39.9 witho ut comorbidity)(Confirmed) Active 1Pt currently on Lovenox 160mg BID - [facility] Vital Signs Most recent to oldest [Reference Range]: 1 2 Height 166 cm (06/29/20 6:27 PM) 166 cm (06/29/20 3:32 PM) Weight 158.6 kg (06/29/20 6:27 PM) 158.6 kg (06/29/20 3:32 PM) Oxygen Saturation [94-100 %] 100 % (06/29/20 6:27 PM) 100 % (06/29/20 3:32 PM) Pulse Rate [55-90 bpm] 98 bpm *H* (06/29/20 6:27 PM) 99 bpm *H* (06/29/20 3:32 PM) Body Mass Index [18.5-24.99] 57.56 *>HHI* (06/29/20 6:27 PM) Blood Pressure [90-138/55-84 mm Hg] 119/ 65mm Hg (06/29/20 6:27 PM) 149/82mm Hg *H* (06/29/20 3:32 PM) Respiratory Rate [16-30 br/min] 18 br/mi n (06/29/20 6:27 PM) 24 br/min (06/29/20 3:32 PM) Temperature [96.8-100.4 DegF] 96.5 DegF *L* (06/29/20 3:32 PM) Mode of Delivery (Oxygen) Room air (06/29/20 6:27 PM) Room air (06/29/20 3:32 PM) Temperature Route Temporal (06/29/20 3:32 PM) Dry Weight 158.6 kg (06/29/20 6:27 PM) 158.6 kg (06/29/20 3:32 PM) Dry Weight Obtained Via Standing scale (06/29/20 3:32 PM) Social History Social History Type Response Smoking Status Never (less than 100 in lifetime) entered on: 10/12/19 Sex
--- OUTSIDE RECORDS SUMMARY | 2023-08-15 22:35 | XMS_ITS | Continuity of Care Document ---
Author Name Unknown Organization [facility] Address [address] [place] [address]- Care Team Providers Care Toll Testboard Worker Name Role Phone Griselda-Carmen PACHECO, Bianca Primary Care Physicia n Encounter [facility] Date(s): 06/10/20 - 07/10/[address] [address]- [facility] Allergies, Adverse Reactions, Alerts Substance Reaction Severity [...] 08/25/23 15:00:00 EST, 06/11/20 15:00:00 EDT, Solution, [facility] #[id number], 165, cm, 06/11/20 14:30:00 EDT, Height, 161.2, kg, 03/26/20 20:37:00 EDT, Dry... Start Date: 06/11/20 Stop Date: 08/25/23 Status: Ordered Multivitamins with FA 0.8 mg oral tablet 1 tablet, By Mouth, Daily, # 100 tablet, 3 Refills, Maintenance, 06/11/20 15:01:00 EDT, Tablet, [facility] #[id number], 1 tablet By Mouth Daily, 165, [...] on this medication at a [facility] vist on 06/11/2020 Social History Social History Type Response Smoking Status Never (less than 100 in lifetime) entered on: 10/12/19 Sex
--- OUTSIDE RECORDS SUMMARY | 2023-08-15 22:35 | XMS_ITS | Continuity of Care Document ---
Author Name Unknown Organization [facility] Address [address] [place] [address]- Care Team Providers Care Patrol Officer Name Role Phone Griselda-Carmen PACHECO, Bianca Primary Care Physicia n [id number] - 02/25/[address] [address]- Attending Physician: Not on Staff, Attending MD [...] 12/30/20 7:55:00 EDT, Route to Pharmacy Electronically, [facility]/pharmacy #[id number], Partial fill upon patient request [...] 30 capsule, 0 Refills, Maintenance, [id number], 165, cm, 01/18/21 1:48:00 EDT, Height, 170.5, [...] 3 Refills, Maintenance, 06/11/20 15:01:00 EDT, Tablet, [facility]/pharmacy #[id number], 1 tablet By Mouth Daily, [...]
--- OUTSIDE RECORDS SUMMARY | 2023-08-15 22:35 | XMS_ITS | Continuity of Care Document ---
Author Name Unknown Organization [facility] Address [address] [place] [address]- Care Team Providers Care Vessel Traffic Officer Name Role Phone Griselda-Bianca Morales MD Primary Care Physicia n Encounter [facility] Date(s): 07/03/23 - 07/03/[address] [address]- Encounter Diagnosis Bronchitis(Final) - 07/03/23 Abdominal pain(Final) - 07/03/23 Hip pain(Final) - 07/03/23 Discharge Disposition: A-D/C Home Attending Physician: Florentin Mora MD Admitting Physician: Florentin Mora MD Referring Physician: Not on Staff, Referring MD Allergies, Adverse Reactions, Alerts No Known Allergies Immunizations Given and Recorded Vaccine Date Status Refusal Reason tetanus/diphtheria/pertussis, acel(Tdap) 12/01/20 Given tetanus/diphtheria/pertussis, acel(Tdap) 08/07/15 Given tetanus/diphtheria/pertussis, acel(Tdap) 12/11/12 Given influenza virus vaccine, inactivated 07/10/15 Give n Medications Amoxicillin By Mouth, Maintenance, 07/03/23 11:13:00 EDT Start Date: 07/03/23 Status: Ordered benzonatate 100 mg oral capsule 1 capsule = 100 mg, By Mouth, 3 times a day, PRN as needed for cough, for 7 days, # 21 capsule, 0 Refills, Acute 07/10/23 15:17:00 EDT, 07/03/23 15:17:00 EDT, [facility]aps[facility], [id number], Partial fill upon patient request if the prescription is for a... Start Date: 07/03/23 Stop Date: 07/10/23 Status: Ordered furosemide 20 mg oral tablet 20 mg, 1, tablet, By Mouth, Daily, # 7 tablet, Refills 0, Tot. Refills 0, Maintenance, 11/27/22 19:33:00 EST, Route to Pharmacy Electronically, [facility]/pharmacy #[id number], Partial fill upon patient request if the prescription is for a schedule II opioid drug.... Start Date: 11/27/22 Stop Date: 12/04/22 Status: Ordered MorPHINE Inj 4 mg, Injection, IV Push Slowly, Once, Routine, 07/03/23 13:00:00 EDT, Stop date 07/03/23 13:00:00 EDT Start Date: 07/03/23 Stop Date: 07/03/23 Status: Completed ProAir HFA 90 mcg/inh inhalation aerosol 2 puffs, Inhalation, 4 times a day, PRN Wheezing/Shortness of Breath, # 18 Gm, 0 Refills, Maintenance, 07/03/23 15:16:00 EDT, [facility]/pharmacy #[id number], Partial fill upon patient request if the prescriptionis for a schedule II opioid drug., 2 puffs Inhalati... Start Date: 07/03/23 Status: Ordered Problem List Condition Confirmation Course [...] - placed on this medication at a [facility] vist on 06/11/2020 Results Radiology Reports * Exam Date Time Procedure Performing Provider Status 07/03/23 12:[address] Abd/Pelvis W/ IV Contrast Only Diana Segal; Auth (Verified) Notes: (CT Abd/Pelvis W/ IV Contrast Only) Reason For Exam: Pain RESULT: CT Abd/Pelvis W/ IV Contrast Only CT Abd/Pelvis W/ IV Contrast Only Hx of Present Illness: Cough, runny nose, feels like she has fluid in her lungs, fever, chills, pain in RUQ of abdomen. Seen at 1 weeks ago, dx strep throat, is on abx and steroid, not improving; Reason: Pain; Clinical Question(s): Appendicitis TECHNIQUE: Spiral CT through the abdomen and pelvis with IV contrast formatted in 3 planes. 100 cc of Omnipaque 300 was administered intravenously. This study was performed without oral contrast. Weight-based protocol using automatic tube modulation was used to optimize exposure parameters. CTDIvol Body: 28.17 mGy, DLP Body: 1592 mGy*cm. COMPARISON: 01/27/2023 FINDINGS: Nursing Clerk View Findings, Lines and Tubes: None. Visualized Chest: Lung bases are clear. No pleural effusion. The heart is normal in size. No pericardial effusion. Diaphragm: Normal. Liver: Heterogeneous appearance of the liver, unchanged. Focal fat at the falciform ligament. No evidence of mass. Gallbladder: Absent consistent with prior cholecystectomy. Bile ducts: No biliary ductal dilation. Spleen: Similar mild splenomegaly. Pancreas: Normal. Adrenal glands: Normal. Kidneys and ureters: No hydronephrosis, stones, or suspicious masses. Bladder: Normal. Reproductive organs: Unremarkable. Stomach, small bowel, and large bowel: Normal. Appendix: Normal. Peritoneum and retroperitoneum: No ascites or pneumoperitoneum. No omental or mesenteric lesions. Lymph nodes: No enlarged lymph nodes. Small mesenteric lymph nodes. Blood vessels: Normal. No aneurysm. No evidence of venous thrombosis. Abdominal and pelvic wall: Unremarkable. Bones: No acute abnormality. IMPRESSION: No acute abnormality on CT of the abdomen and pelvis. Normal CT appearance of the appendix. WSN: [id number] Ordering Physician: Aurea Rojo Dictated By: Giselle Canchola MD Dictated Date/Time: 07/03/23 1:13 pm Reviewed By: Giselle aCnchola MD Signed By: Giselle Canchola MD Signed Date/Time: 07/03/23 1:13 pm Transcribed By: MELANIE Transcribed Date/Time: 07/03/23 12:55 pm * Exam Date Time Procedure Performing Provider Status 07/03/23 12:25 PM Chest 2 Views Frontal and Lat Jem Hallman; Caitlyn (Verified) Notes: (Chest 2 Views Frontal and Lat) Reason For Exam: Shortness of Breath, Fever;Other: RESULT: Chest 2 Views Frontal and Lat Chest 2 Views Frontal and Lat Hx of Present Illness: Cough, runny nose, feels like she has fluid in her lungs, fever, chills, pain in RUQ of abdomen. Seen at 1 weeks ago, dx strep throat, is on abx and steroid, not improving; COMPARISON: 11/27/2022 FINDINGS: LINES AND TUBES: None. LUNGS AND PLEURA: Clear lungs. Normal pulmonary vascularity. No pleural effusion. No pneumothorax. HEART, MEDIASTINUM AND TOAN: Heart is normal in size. Normal mediastinal and hilar contour. BONES AND SOFT TISSUES: No acute abnormality. IMPRESSION: No acute abnormality. WSN: [id number] Ordering Physician: Fly Schulz Dictated By: Adrien Chisholm MD Dictated Date/Time: 07/03/23 12:27 p Reviewed By: Adrien Chisholm MD Signed By: Adrien Chisholm MD Signed Date/Time: 07/03/23 12:27 pm Transcribed By: MELANIE Transcribed Date/Time: 07/03/23 12:26 pm Vital Signs Most recent to oldest [Reference Range]: 1 2 3 Height 165 cm (07/03/23 2:20 PM) 165 cm (07/03/23 11:10 AM) Weight 145.1 kg (07/03/23 11:10 AM) Oxygen Saturation [94-100 %] 98 % (07/03/23 11:10 AM) 100 % (07/03/23 11:09 AM) Pulse Rate [55-90 bpm] 72 bpm (07/03/23 2:20 PM) 69 bpm (07/03/23 11:10 AM) 89 bpm (07/03/23 11:09 AM) Blood Pressure [90-138/55-84 mm Hg] 115/74mm Hg (07/03/23 2:20 PM) 128/98mm Hg (07/03/23 11:10 AM) Respiratory Rate [16-30 br/min] 18 br/min (07/03/23 2:20 PM) 18 br/min (07/03/23 1:20 PM) 28 br/min (07/03/23 12:50 PM) Temperature [96.8-100.4 DegF] 98.4 DegF (07/03/23 2:20 PM) 97.3 DegF (07/03/23 11:10 AM) Mode of Delivery (Oxygen) Room air (07/03/23 11:10 AM) Room air (07/03/23 11:09 AM) Blood pressure sites Arm, right (07/03/23 2:20 PM) Arm, left (07/03/23 11:10 AM) Temperature Route Oral (07/03/23 2:20 PM) Oral (07/03/23 11:10 AM) Dry Weight 145.1 kg (07/03/23 11:10 AM) Social History Social History Type Response Smoking Status Never (less than 100 in lifetime) entered on: 10/12/19 Sex Note * Aurea Cabrera: PERFORM, SIGN, VERIFY Event Display: Patient Education Handout Authored Date: [id number] Patient Care team information Care Team Personnel Name: Bianca Birmingham MD Position: [facility] Physician - Primary Care Member Role: PCP Address: Address: [address] [place] [address] [place] [address]- [place] Name: Sheree Diego RN Position: [facility] RN Member Role: Primary Care Nurse Name: Janine Guzman Position: [facility] Outreach Member Role: Lifetime Consulting Physician Name: Rosalia Parsons RN Position: [facility] RN Member Role: Primary Care Nurse Name: Erika Sauceda RN Position: [facility] RN Member Role: Primary Care Nurse Name: Clara Velázquez RN Position: [facility] ED RN W/OE and Tasks Member Role: Primary Care Nurse Name: Emma Flower RN Position: [facility] Hospital Restaurant Supervisor Member Role: Primary Care Nurse Name: Summer Ratliff RN Position: [facility] RN Member Role: Primary Care Nurse Name: Lul Tijerina Position: [facility] ED TA [facility] Member Role: ED Associate Name: Eleno Bass RN Position: [facility] ED RN W/OE and Tasks Member Role: Patient Care Provider Name: Aurea Cabrera Position: [facility] Associate Professional Member Role: Physician Approver Address: Address: [address] [facility] [place] [address]- [place] Name: Florentin Mora MD Position: [facility] ED Medicine MD Member Role: Admitting Physician Address: Address: [address] [place] [address]- Care Team Related Persons Name: YAW MERIDA Address: home [address] [place] [address] Name: JEM KIMBALL Address: home [address] [place] [address] Name: BEE KIMBALL Address: [employer] Address: home [address] [place] [address]
--- OUTSIDE RECORDS SUMMARY | 2023-08-15 22:35 | XMS_ITS | Continuity of Care Document ---
Author Name Unknown Organization [facility] Address [address] [place] [address]- Care Team Providers Care Road Oiler Name Role Phone Griselda-Carmen PACHECO, Bianca Primary Care Physicia n Encounter [facility] Date(s): 09/08/20 - 03/08/21 [facility] [address] [place] [address]- Discharge Disposition: A-D/C Home Attending Physician: Antonia PACHECO(Hem/Onc), Blair Barraza Admitting Physician: Carlos PACHECO, Ti Pop Referring Physician: Stacey Perkins MD Allergies, Adverse Reactions, Alerts Substance Reaction [...] 12/30/20 7:55:00 EDT, Route to Pharmacy Electronically, [facility]/pharmacy #[id number], Partial fill upon patient request if the prescription... Start Date: 12/30/20 Status: Ordered docusate sodium 100 mg oral capsule 1 capsule = 100 mg, By Mouth, 2 times a day, PRN as needed for constipation, # 60 capsule, 0 Refills, Maintenance, 01/21/21 7:55:00 EDT, Capsule, [facility]/pharmacy #0859, Partial fill upon patient requestif the prescription is for a schedule II opioid elisha... Start Date: 01/21/21 Status: Ordered ibuprofen 600 mg oral tablet 600 mg, 1, tablet, By Mouth, Every 6 hours, PRN, # 30 tablet, Refills 1, Tot. Refills 1, Maintenance, Pain , Moderate, 01/21/21 7:55:00 EDT, Route to Pharmacy Electronically, [facility]/pharmacy #[id number], Partial fill upon patient request if the prescription is... Start Date: 01/21/21 Status: Ordered Lovenox 100 mg/mL injectable solution 1 mL = 100 mg, Subcutaneous Injection, Every 12 hours, for 90 days, # 180 mL, 12 Refills, Acute 12/12/23 15:31:00 EDT, 09/28/20 15:31:00 EST, Solution, [facility]/pharmacy #0859, 166, cm, 09/08/20 9:21:00 EST, Height, [...] 30 capsule, 0 Refills, Maintenance, [facility], 165, cm, 01/18/21 1:48:00 EDT, Height, 170.5, [...] 3 Refills, Maintenance, 06/11/20 15:01:00 EDT, Tablet, [facility]/pharmacy #0859, 1 tablet By Mouth Daily, 165, [...] - placed on this medication at a [facility] vist on 06/11/2020 Social History Social History Type Response Smoking Status Never (less than 100 in lifetime) entered on: 10/12/19 Sex
--- OUTSIDE RECORDS SUMMARY | 2023-08-15 22:35 | XMS_ITS | Continuity of Care Document ---
Author Name Unknown Organization [facility] Address [address] [place] [address]- Care Team Providers Care Dental Laboratory Assistant Name Role Phone Griselda-Carmen PACHECO, Bianca Primary [facility]icia n [id number] Date[facility] 12/29/20 - 01/31/[address] [address]- Attending Physician: Not on Staff, Attending MD [...] 12/30/20 7:55:00 EDT, Route to Pharmacy Electronically, [facility]/pharmacy #[id number], Partial fill upon patient request [...] 30 capsule, 0 Refills, Maintenance, [facility], 165, cm, 01/18/21 1:48:00 EDT, Height, 170.5, [...] 3 Refills, Maintenance, 06/11/20 15:01:00 EDT, Tablet, [facility]/pharmacy #0859, 1 tablet By Mouth Daily, [...] - [facility] Social History Social History Type Response Smoking Status Never (less than 100 in lifetime) entered on: 10/12/19 Sex Female
--- OUTSIDE RECORDS SUMMARY | 2023-08-15 22:35 | XMS_ITS | Continuity of Care Document ---
Author Name Unknown Organization [facility] Address [address] [place] [address]- Care Team Providers Care Label Machine Operator Name Role Phone Griselda-Carmen PACHECO, Bianca Primary Care Physicia n Encounter [facility] Date(s): 12/01/20 - 03/11/[address] [address]- Attending Physician: Not on Staff, Attending MD [...] 30 capsule, 0 Refills, Maintenance, [facility], 165, cm, 01/18/21 1:48:00 EDT, Height, 170.5, [...] [facility] Social History Social History Type Response Smoking Status Never (less than 100 in lifetime) entered on: 10/12/19 Sex
--- OUTSIDE RECORDS SUMMARY | 2023-08-15 22:35 | XMS_ITS | Continuity of Care Document ---
Author Name Unknown Organization [facility] Address [address] [place] [address]- Care Team Providers Care Gas Tester Name Role Phone Griselda-Carmen PACHECO, Bianca Primary Care Physicia n Encounter [facility] Date(s): 06/22/20 - 07/22/[address] [address]- [facility] Allergies, Adverse Reactions, Alerts Substance [...] 0 Refills, Maintenance, 03/26/20 20:22:00 EDT, Gel, [facility]/pharmacy #[id number], 165, cm, 03/26/20 18:22:00 EDT, Height, 161.2, kg, 03/26/20 18:22:00 EDT, Dry Weight Start Date: 03/26/20 Status: Ordered doxylamine 25 mg oral tablet 0.5 tablet = 12.5 mg, By Mouth, 3 times a day, PRN Nausea, # 15 tablet, 0 Refills, Maintenance, 07/16/20 14:46:00 EDT, Tablet, [facility]/pharmacy #0859, 166, cm, 07/16/20 13:29:00 EDT, Height, 158.6, kg, 06/29/20 18:27:00 EDT, Dry Weight Start Date: 07/16/20 Stop Date: 07/26/20 Status: Ordered Lovenox 100 mg/mL injectable solution 1.6 mL = 160 mg, Subcutaneous Injection, Every 12 hours, for 90 days, # 288 mL, 12 Refills, Acute 08/25/23 15:00:00 EST, 06/11/20 15:00:00 EDT, Solution, [facility]/pharmacy #0859, 165, cm, 06/11/20 14:30:00 EDT, Height, [...] Dry Weight Start Date: 06/11/20 Status: Ordered pyridoxine 25 mg oral tablet 1 tablet = 25 mg, By Mouth, 3 times a day, PRN Nausea, for 10 days, # 30 tablet, 0 Refills, Acute 07/26/20 14:46:00 EST, 07/16/20 14:46:00 EDT, Tablet, [facility]/pharmacy #0859, 166, cm, 07/16/20 13:29:00 EDT, Height, 158.6, kg, 06/29/20 18:27:00 EDT, Dry W... Start Date: 07/16/20 Stop Date: 07/26/20 Status: Ordered Problem List Condition Effective Dates Status Health Status Inform ant DVT RLE(Confirmed) 1 Active Blood type A-(Confirmed) 03/03/15 Active Negative screen Cystic fibrosis(Confirmed) 03/04/15 Active H/O varicella as a child(Confirmed) Active H/O syncope(Confirmed) Active 1Pt currently on Lovenox 160mg BID - placed on this medication at a [facility] vist on 06/11/2020 Social History Social History Type Response Smoking Status Never (less than 100 in lifetime) entered on: 10/12/19 Sex Female
--- OUTSIDE RECORDS SUMMARY | 2023-08-15 22:35 | XMS_ITS | Continuity of Care Document ---
Author Name Unknown Organization [facility] Address [address] [place] [id number]- Care Team Providers Care Oriental Rug Stretcher Name Role Phone Griselda-Carmen PACHECO, Bianca Primary Care Physicia n Encounter [facility] Date(s): 03/09/21 - 04/08/[address] [address]- Attending Physician: Alex Traore Admitting Physician: Alex [...] 12/30/20 7:55:00 EDT, Route to Pharmacy Electronically, [facility]/pharmacy #[id number], Partial fill upon patient request if the prescription... Start Date: 12/30/20 Status: Ordered docusate sodium 100 mg oral capsule 1 capsule = 100 mg, By Mouth, 2 times a day, PRN as needed for constipation, # 60 capsule, 0 Refills, Maintenance, 01/21/21 7:55:00 EDT, Capsule, [facility]/pharmacy #[id number], Partial fill upon patient requestif the prescription is for a schedule II opioid elisha... Start Date: 01/21/21 Status: Ordered ibuprofen 600 mg oral tablet 600 mg, 1, tablet, By Mouth, Every 6 hours, PRN, # 30 tablet, Refills 1, Tot. Refills 1, Maintenance, Pain , Moderate, 01/21/21 7:55:00 EDT, Route to Pharmacy Electronically, [facility]/pharmacy #[id number], Partial fill upon patient request if the prescription is... Start Date: 01/21/21 Status: Ordered MiraLax oral powder for reconstitution = 17 Gm, By Mouth, Daily, dissolve in water before taking, # 527 Gm, 1 Refills, Maintenance, 12/15/20 11:23:00 EDT, REC Powder, [facility]/pharmacy #[id number], Partial fill upon patient request if the prescription is for a schedule II opioid drug., 17 Gm By Mouth... Start Date: 12/15/20 Status: Ordered omeprazole 40 mg oral enteric coated capsule See Instructions, TAKE 1 CAPSULE BY MOUTH DAILY BEFORE A MEAL, # 30 capsule, 0 Refills, Maintenance, [id number], 165, cm, 01/18/21 1:48:00 EDT, Height, 170.5, [...] - placed on this medication at a [facility] vist on 06/11/2020 Social History Social History Type Response Smoking Status Never (less than 100 in lifetime) entered on: 10/12/19 Sex
--- OUTSIDE RECORDS SUMMARY | 2023-08-15 22:35 | XMS_ITS | Continuity of Care Document ---
Author Name Unknown Organization [facility] Address [address] [place] [id number]- Care Team Providers Care Field Service Specialist Name Role Phone Griselda-Carmen PACHECO, Bianca Primary Care Physicia n [id number] Date(s): 01/13/21 - 02/18/[address] [address]- Attending Physician: Donna Anguiano MD Admitting Physician: [...] 12/30/20 7:55:00 EDT, Route to Pharmacy Electronically, [facility]/pharmacy #[id number], Partial fill upon patient request if the prescription... Start Date: 12/30/20 Status: Ordered docusate sodium 100 mg oral capsule 1 capsule = 100 mg, By Mouth, 2 times a day, PRN as needed for constipation, # 60 capsule, 0 Refills, Maintenance, 01/21/21 7:55:00 EDT, Capsule, [facility]/pharmacy #[id number], Partial fill upon patient requestif the prescription is for a schedule II opioid elisha... Start Date: 01/21/21 Status: Ordered ibuprofen 600 mg oral tablet 600 mg, 1, tablet, By Mouth, Every 6 hours, PRN, # 30 tablet, Refills 1, Tot. Refills 1, Maintenance, Pain , Moderate, 01/21/21 7:55:00 EDT, Route to Pharmacy Electronically, [facility]/pharmacy #[id number], Partial fill upon patient request if the prescription is... Start Date: 01/21/21 Status: Ordered Lovenox 100 mg/mL injectable solution 1 mL = 100 mg, Subcutaneous Injection, Every 12 hours, for 90 days, # 180 mL, 12 Refills, Acute 12/12/23 15:31:00 EDT, 09/28/20 15:31:00 EST, Solution, [facility]/pharmacy #[id number], 166, cm, 09/08/20 9:21:00 EST, Height, 158.6, kg, 06/29/20 18:27:00 EDT, Dry We... Start Date: 09/28/20 Stop Date: 12/12/23 Status: Ordered MiraLax oral powder for reconstitution = 17 Gm, By Mouth, Daily, dissolve in water before taking, # 527 Gm, 1 Refills, Maintenance, 12/15/20 11:23:00 EDT, REC Powder, [facility]/pharmacy #[id number], Partial fill upon patient request if the prescription is for a schedule II opioid drug., 17 Gm By Mouth... Start Date: 12/15/20 Status: Ordered omeprazole 40 mg oral enteric coated capsule See Instructions, TAKE 1 CAPSULE BY MOUTH DAILY BEFORE A MEAL, # 30 capsule, 0 Refills, Maintenance, [id number], 165, cm, 01/18/21 1:48:00 EDT, Height, 170.5, [...] 3 Refills, Maintenance, 06/11/20 15:01:00 EDT, Tablet, [facility]/pharmacy #[id number], 1 tablet By Mouth Daily, 165, [...] - placed on this medication at a [facility] vist on 06/11/2020 Social History Social History Type Response Smoking Status Never (less than 100 in lifetime) entered on: 10/12/19 Sex
--- OUTSIDE RECORDS SUMMARY | 2023-08-15 22:35 | XMS_ITS | Continuity of Care Document ---
Author Name Unknown Organization [facility] Address [address] [place] [address]- Care Team Providers Care Steamer Operator Name Role Phone Griselda-Carmen PACHECO, Bianca Primary Care Physicia n Encounter [facility] Date(s): 03/26/20 - 03/26/20 [facility] [address] [place] [address]- [facility] Encounter Diagnosis Ecchymosis(Final) - 03/26/20 Discharge Disposition: A-D/C Home Attending Physician: Jorge Pisano MD Admitting Physician: Jorge Pisano MD Referring Physician: Not on Staff, Referring MD Allergies, Adverse Reactions, Alerts Substance Reaction Severity Status NKA Active Immunizations Given and Recorded Vaccine Date Status Refusal Reason tetanus/diphtheria/pertussis, acel(Tdap) 08/07/15 Given tetanus/diphtheria/pertussis, acel(Tdap) 12/11/12 Given influenza virus vaccine, inactivated 07/10/15 Give n Not Given Vaccine Date Status Refusal Reason pneumococcal 23-valent vaccine 01/02/16 Not Given Patient Refuses Medications diclofenac 1% topical gel 1 application, Topically, 2 times a day, # 100 Gm, 0 Refills, Maintenance, 03/26/20 20:22:00 EDT, Gel, [id number], 165, cm, 03/26/20 18:22:00 EDT, Height, 161.2, kg, 03/26/20 18:22:00 EDT, Dry Weight Start Date: 03/26/20 Status: Ordered warfarin 10 mg oral tablet 1 tablet = 10 mg, By Mouth, Every other day, # 30 tablet, 0 Refills, Maintenance, 10/12/19 11:38:00EST, Tablet Start Date: 10/12/19 Status: Ordered Warfarin Tablet = 15 mg, By Mouth, Every other day, 0 Refills, Maintenance, 10/12/19 11:39:00 EST, Tablet Start Date: 10/12/19 Status: Ordered Problem List Condition Effective Dates Status Health Status Inform ant Acute deep vein thrombosis ( DVT) of popliteal vein of right lower extremity(Confirmed) Active Blood type A-(Confirmed) Active Depression(Confirmed) Active Acid reflux(Confirmed) Active Obesity (BMI 35.0-39.9 witho ut comorbidity)(Confirmed) Active Vital Signs Most recent to oldest [Reference Range]: 1 2 Height 165 cm (03/26/20 8:37 PM) 165 cm (03/26/20 6:22 PM) Weight 161.2 kg (03/26/20 8:37 PM) 161.2 kg (03/26/20 6:22 PM) Oxygen Saturation [94-100 %] 99 % (03/26/20 8:37 PM) 100 % (03/26/20 6:22 PM) Pulse Rate [55-90 bpm] 78 bpm (03/26/20 8:37 PM) 79 bpm (03/26/20 6:22 PM) Body Mass Index [18.5-24.99] 59.21 *>HHI* (03/26/20 8:37 PM) Blood Pressure [90-138/55-84 mm Hg] 139/ 92mm Hg *H* (03/26/20 8:37 PM) 136/78mm Hg (03/26/20 6:22 PM) Respiratory Rate [16-30 br/min] 20 br/mi n (03/26/20 8:37 PM) 20 br/min (03/26/20 6:22 PM) Temperature [96.8-100.4 DegF] 98.3 DegF (03/26/20 6:22 PM) Mode of Delivery (Oxygen) Room air (03/26/20 8:37 PM) Room air (03/26/20 6:22 PM) Blood pressure sites Arm, left (03/26/20 8:37 PM) Arm, left (03/26/20 6:22 PM) Temperature Route Oral (03/26/20 6:22 PM) Dry Weight 161.2 kg (03/26/20 8:37 PM) 161.2 kg (03/26/20 6:22 PM) Social History Social History Type Response Smoking Status Never (less than 100 in lifetime) entered on: 10/12/19 Sex
--- OUTSIDE RECORDS SUMMARY | 2023-08-15 22:35 | XMS_ITS | Continuity of Care Document ---
Author Name Unknown Organization [facility] Address [address] [place] [id number]- Care Team Providers Care Arnp Name Role Phone Griselda-Carmen PACHECO, Bianca Primary Care Physicia n Encounter [facility] Date(s): 02/17/21 - 03/19/[address] [address]- Allergies, Adverse Reactions, Alerts Substance Reaction Severity [...] 0 Refills, Maintenance, 01/21/21 7:55:00 EDT, Capsule, [facility]/pharmacy #[id number], Partial fill upon patient requestif the prescription is for a schedule II opioid elisha... Start Date: 01/21/21 Status: Ordered ibuprofen 600 mg oral tablet 600 mg, 1, tablet, By Mouth, Every 6 hours, PRN, # 30 tablet, Refills 1, Tot. Refills 1, Maintenance, Pain , Moderate, 01/21/21 7:55:00 EDT, Route to Pharmacy Electronically, [facility]/pharmacy #[id number], Partial fill upon patient request if the prescription is... Start Date: 01/21/21 Status: Ordered Lovenox 100 mg/mL injectable solution 1 mL = 100 mg, Subcutaneous Injection, Every 12 hours, for 90 days, # 180 mL, 12 Refills, Acute 05/22/24 12:12:00 EDT, 03/09/21 12:12:00 EDT, Solution, [facility]/pharmacy #[id number], 165, cm, 03/09/21 12:01:00 EDT, Height, 170.5, kg, 01/18/21 1:48:00 EDT, Dry We... Start Date: 03/09/21 Stop Date: 05/22/24 Status: Ordered MiraLax oral powder for reconstitution = 17 Gm, By Mouth, Daily, dissolve in water before taking, # 527 Gm, 1 Refills, Maintenance, 12/15/20 11:23:00 EDT, REC Powder, [facility]/pharmacy #[id number], Partial fill upon patient request if the prescription is for a schedule II opioid drug., 17 Gm By Mouth... Start Date: 12/15/20 Status: Ordered omeprazole 40 mg oral enteric coated capsule See Instructions, TAKE 1 CAPSULE BY MOUTH DAILY BEFORE A MEAL, # 30 capsule, 0 Refills, Maintenance, [id number], 165, cm, 01/18/21 1:48:00 EDT, Height, 170.5, [...] [facility] Social History Social History Type Response Smoking Status Never (less than 100 in lifetime) entered on: 10/12/19 Sex
--- OUTSIDE RECORDS SUMMARY | 2023-08-15 22:35 | XMS_ITS | Continuity of Care Document ---
Author Name Unknown Organization [facility] Address [address] [place] [id number]- Care Team Providers Care Emergency Medical Services Coordinator Name Role Phone Griselda-Carmen PACHECO, Bianca Primary Care Physicia n Encounter [facility] Date(s): 01/07/21 - 02/12/[address] [address]- Attending Physician: Not on Staff, Attending MD [...] 30 capsule, 0 Refills, Maintenance, [id number], 165, cm, 01/18/21 1:48:00 EDT, Height, 170.5, [...] - placed on this medication at a [facility] on 06/11/2020 Social History Social History Type Response Smoking Status Never (less than 100 in lifetime) entered on: 10/12/19 Sex
--- OUTSIDE RECORDS SUMMARY | 2023-08-15 22:36 | XMS_ITS | Continuity of Care Document ---
Author Name Unknown Organization [facility] Address [address] [place] [address]- Care Team Providers Care Director Business Travel Name Role Phone Griselda-Carmen PACHECO, Bianca Primary Care Physicia n Encounter [facility] Date(s): 01/15/21 - 02/14/[address] [address]- Allergies, Adverse Reactions, Alerts Substance Reaction Severity [...] 0 Refills, Maintenance, 01/21/21 7:55:00 EDT, Capsule, [facility]/pharmacy #[id number], Partial fill upon patient requestif the prescription is for a schedule II opioid elisha... Start Date: 01/21/21 Status: Ordered ibuprofen 600 mg oral tablet 600 mg, 1, tablet, By Mouth, Every 6 hours, PRN, # 30 tablet, Refills 1, Tot. Refills 1, Maintenance, Pain , Moderate, 01/21/21 7:55:00 EDT, Route to Pharmacy Electronically, [facility]/pharmacy #[id number], Partial fill upon patient request if [...] Refills, Maintenance, 12/15/20 11:23:00 EDT, REC Powder, [facility]/pharmacy #[id number], Partial fill upon patient request if the prescription is for a schedule II opioid drug., 17 Gm By Mouth... Start Date: 12/15/20 Status: Ordered omeprazole 40 mg oral enteric coated capsule See Instructions, TAKE 1 CAPSULE BY MOUTH DAILY BEFORE A MEAL, # 30 capsule, 0 Refills, Maintenance, [id number], 165, cm, 01/18/21 1:48:00 EDT, Height, 170.5, [...] - placed on this medication at a [facility] vist on 06/11/2020 Social History Social History Type Response Smoking Status Never (less than 100 in lifetime) entered on: 10/12/19 Sex
--- OUTSIDE RECORDS SUMMARY | 2023-08-15 22:36 | XMS_ITS | Continuity of Care Document ---
Author Name Unknown Organization [facility] al Address [address] [place] [address]- Care Team Providers Care Roto Rooter Operator Name Role Phone Griselda-Bianca Morales MD Primary Care Physicia n Encounter [facility] Date(s): 08/07/23 - 08/07/[address] [address]- Discharge Disposition: A-D/C Home Attending Physician: Fly Schulz MD Admitting Physician: Fly Schulz MD Referring Physician: Not on Staff, Referring MD Allergies, Adverse Reactions, Alerts No Known Allergies Immunizations Given and Recorded Vaccine Date Status Refusal Reason tetanus/diphtheria/pertussis, acel(Tdap) 12/01/20 Given tetanus/diphtheria/pertussis, acel(Tdap) 08/07/15 Given tetanus/diphtheria/pertussis, acel(Tdap) 12/11/12 Given influenza virus vaccine, inactivated 07/10/15 Give n Medications Amoxicillin By Mouth, Maintenance, 07/03/23 11:13:00 EDT Start Date: 07/03/23 Status: Ordered Dilaudid Inj 1 mg, Injection, IV Push Slowly, Every 15 minutes for 3 doses/times, PRN for Pain , Moderate, and SBP greater than 100, STAT, 08/07/23 19:17:00 EST, Stop date Limited # of times Start Date: 08/07/23 Status: Ordered furosemide 20 mg oral tablet 20 mg, 1, tablet, By Mouth, Daily, # 7 tablet, Refills 0, Tot. Refills 0, Maintenance, 11/27/22 19:33:00 EST, Route to Pharmacy Electronically, [facility]/pharmacy #[id number], Partial fill upon patient request if the prescription is for a schedule II opioid drug.... Start Date: 11/27/22 Stop Date: 12/04/22 Status: Ordered ondansetron 4 mg oral tablet, disintegrating 1 tablet = 4 mg, By Mouth, Every 8 hours, PRN as needed for nausea/vomiting, for 3 days, # 9 tablet, 0 Refills, Acute 08/10/23 20:59:00 EST, 08/07/23 20:59:00 EST, DIS Tablet, [facility]/pharmacy #[id number], Partial fill upon patient request if the prescription i... Start Date: 08/07/23 Stop Date: 08/10/23 Status: Ordered oxyCODONE 5 mg oral tablet 5 mg, 1, tablet, By Mouth, Every 6 hours, PRN, for 3 days, # 5 tablet, Refills 0, Tot. Refills 0, Acute 08/10/23 20:59:00 EST, as needed for pain, 08/07/23 20:59:00 EST, Route to Pharmacy Electronically, [facility]/pharmacy #[id number], Partial fill upon patient r... Start Date: 08/07/23 Stop Date: 08/10/23 Status: Ordered ProAir HFA 90 mcg/inh inhalation aerosol 2 puffs, Inhalation, 4 times a day, PRN Wheezing/Shortness of Breath, # 18 Gm, 0 Refills, Maintenance, 07/03/23 15:16:00 EDT, [facility]/pharmacy #[id number], Partial fill upon patient request if the [...] placed on this medication at a [facility] vist on 06/11/2020 Results Radiology Reports * Exam Date Time Procedure Performing Provider Status 08/07/23 8:12 PM US Pelvic Transvaginal Ama Cano; Auth (Verified) Notes: (US Pelvic Transvaginal) Reason For Exam: Pelvic Pain;Other: RESULT: US Pelvic Transvaginal US Pelvic Transabdominal, US Pelvic Doppler Comp, US Pelvic Transvaginal Hx of Present Illness: 1st menstal cycle in 3 months Pt reports excessive vaginal bleeding, abdominal pain as well as n,v,d; Reason: Other:; Pelvic Pain; Clinical Question(s): Torsion; Order Comment:US Pelvic Non-Ob Comp Prep COMPARISON: None TECHNIQUE: Transabdominal and transvaginal pelvic ultrasound with grayscale, color Doppler, and spectral Doppler analysis. FINDINGS: UTERUS: Size: 8.6 x 4.6 x 5.4 cm, volume 113.1 cc. Endometrial thickness: 0.6 cm. Morphology: Normal configuration and echotexture. RIGHT OVARY: Not visualized. LEFT OVARY: Size: 3.2 x 1.6 x 2.8 cm, volume 7.4 cc. Morphology: Normal echotexture. No pathologic cysts or mass. Normal arterial and venous waveforms. ADNEXA: Normal. No adnexal masses or fluid collections. IMPRESSION: No sonographic explanation for patient's symptoms identified. WSN: [id number] Ordering Physician: Kendy Glover Dictated By: Jose Cai MD Dictated Date/Time: 08/07/23 8:20 pm Reviewed By: Jose Cai MD Signed By: Jose Cai MD Signed Date/Time: 08/07/23 8:20 pm Transcribed By: MELANIE Transcribed Date/Time: 08/07/23 8:14 pm * Exam Date Time Procedure Performing Provider Status 08/07/23 8:13 PM US Pelvic Doppler Comp Ama Cano; Auth (Verified) Notes: (US Pelvic Doppler Comp) Reason For Exam: Pelvic Pain;Other: RESULT: US Pelvic Doppler Comp US Pelvic Transabdominal, US Pelvic Doppler Comp, US Pelvic Transvaginal Hx of Present Illness: 1st menstal cycle in 3 months Pt reports excessive vaginal bleeding, abdominal pain as well as n,v,d; Reason: Other:; Pelvic Pain; Clinical Question(s): Torsion; Order Comment:US Pelvic Non-Ob Comp Prep COMPARISON: None TECHNIQUE: Transabdominal and transvaginal pelvic ultrasound with grayscale, color Doppler, and spectral Doppler analysis. FINDINGS: UTERUS: Size: 8.6 x 4.6 x 5.4 cm, volume 113.1 cc. Endometrial thickness: 0.6 cm. Morphology: Normal configuration and echotexture. RIGHT OVARY: Not visualized. LEFT OVARY: Size: 3.2 x 1.6 x 2.8 cm, volume 7.4 cc. Morphology: Normal echotexture. No pathologic cysts or mass. Normal arterial and venous waveforms. ADNEXA: Normal. No adnexal masses or fluid collections. IMPRESSION: No sonographic explanation for patient's symptoms identified. WSN: [id number] Ordering Physician: Kendy Glover Dictated By: Jose Cai MD Dictated Date/Time: 08/07/23 8:20 pm Reviewed By: Jose Cai MD Signed By: Jose Cai MD Signed Date/Time: 08/07/23 8:20 pm Transcribed By: MELANIE Transcribed Date/Time: 08/07/23 8:14 pm * Exam Date Time Procedure Performing Provider Status 08/07/23 8:12 PM US Pelvic Transabdominal Corazon Cano; Auth (Verified) Notes: (US Pelvic Transabdominal) Reason For Exam: Pelvic Pain;Other: RESULT: US Pelvic Transabdominal US Pelvic Transabdominal, US Pelvic Doppler Comp, US Pelvic Transvaginal Hx of Present Illness: 1st menstal cycle in 3 months Pt reports excessive vaginal bleeding, abdominal pain as well as n,v,d; Reason: Other:; Pelvic Pain; Clinical Question(s): Torsion; Order Comment:US Pelvic Non-Ob Comp Prep COMPARISON: None TECHNIQUE: Transabdominal and transvaginal pelvic ultrasound with grayscale, color Doppler, and spectral Doppler analysis. FINDINGS: UTERUS: Size: 8.6 x 4.6 x 5.4 cm, volume 113.1 cc. Endometrial thickness: 0.6 cm. Morphology: Normal configuration and echotexture. RIGHT OVARY: Not visualized. LEFT OVARY: Size: 3.2 x 1.6 x 2.8 cm, volume 7.4 cc. Morphology: Normal echotexture. No pathologic cysts or mass. Normal arterial and venous waveforms. ADNEXA: Normal. No adnexal masses or fluid collections. IMPRESSION: No sonographic explanation for patient's symptoms identified. WSN: [id number] Ordering Physician: Kendy Glover Dictated By: Jose Cai MD Dictated Date/Time: 08/07/23 8:20 pm Reviewed By: Jose Cai MD Signed By: Jose Cai MD Signed Date/Time: 08/07/23 8:20 pm Transcribed By: MELANIE Transcribed Date/Time: 08/07/23 8:14 pm Vital Signs Most recent to oldest [Reference Range]: 1 2 3 Height 165 cm (08/07/23 9:00 PM) 165 cm (08/07/23 7:00 PM) 165 cm (08/07/23 4:19 PM) Weight 141.4 kg (08/07/23 9:00 PM) 141.4 kg (08/07/23 4:19 PM) Oxygen Saturation [94-100 %] 97 % (08/07/23 9:17 PM) 98 % (08/07/23 9:00 PM) 98 % (08/07/23 7:00 PM) Pulse Rate [55-90 bpm] 67 bpm (08/07/23 9:17 PM) 60 bpm (08/07/23 9:00 PM) 64 bpm (08/07/23 7:00 PM) Body Mass Index [18.5-24.99 kg/m2] 51.94 kg/m2 *>HHI* (08/07/23 9:00 PM) Blood Pressure [90-138/55-84 mm Hg] 131/76mm Hg (08/07/23 9:17 PM) 112/53mm Hg (08/07/23 9:00 PM) 133/67mm Hg (08/07/23 7:00 PM) Respiratory Rate [16-30 br/min] 18 br/min (08/07/23 9:17 PM) 18 br/min (08/07/23 9:00 PM) 18 br/min (08/07/23 8:39 PM) Temperature [96.8-100.4 DegF] 98.8 DegF (08/07/23 9:00 PM) 98.5 DegF (08/07/23 4:19 PM) Mode of Delivery (Oxygen) Room air (08/07/23 9:17 PM) Room air (08/07/23 9:00 PM) Room air (08/07/23 7:00 PM) Blood pressure sites Arm, left (08/07/23 9:17 PM) Arm, left (08/07/23 9:00 PM) Arm, left (08/07/23 7:00 PM) Temperature Route Temporal (08/07/23 9:00 PM) Temporal (08/07/23 4:19 PM) Dry Weight 141.4 kg (08/07/23 9:00 PM) 141.4 kg (08/07/23 4:19 PM) Social History Social History Type Response Smoking Status Never (less than 100 in lifetime) entered on: 10/12/19 Sex Note * Kendy Ortiz: PERFORM, SIGN, VERIFY Event Display: Patient Education Handout Authored Date: * Kendy Ortiz: PERFORM Event Display: Patient Education Leaflets Authored Date: Pelvic Pain, Uncertain Cause ?? [id number] Pelvic Pain, Uncertain Cause Pelvic pain is pain felt in the lowest part of the belly (abdomen) and between the hipbones. The pain may occur suddenly and recently (acute). Or the pain may last for 6 months or longer (chronic). There are many possible causes of pelvic pain. The pain may be from a problem in the female reproductive system. Or it may be from a problem in the digestive, urinary, or musculoskeletal systems. Based on your visit today, the exact cause of your pelvic pain is not certain. Your condition doesn't seem to be serious at this time. But it is important for you to keep watching for any new symptoms or worsening of your condition. General care Your healthcare provider may advise a number of ways to help manage your pain. These can include the following: ??? Take bvuw-ppd-yqmswja pain medicine. Stronger pain medicine may also be prescribed,if needed. ??? Apply heat to the pelvic area. Use a heating pad or a hot pack. Taking a hot bath may also help. ??? Get plenty of rest. ??? Make certain lifestyle changes. These can include practicing good posture and getting regular exercise. Studies have shown that these changes help reduce pelvic pain in some people. ??? See a physical therapist or pain specialist. These healthcare providers can discuss other ways to manage pain with you. ??? Use acupressure or acupuncture. ?? Follow-up care Follow up with your healthcare provider, or as advised.? When to get medical advice Call your healthcare provider right away if any of the following occur: ??? Fever of 100.4??F (38??C) or higher, or as directed by your healthcare provider ??? Pain gets worse or you have sudden, severe pain or new pain ??? Nausea, vomiting, sweating, or restlessness ??? Dizziness or fainting ??? Abnormal vaginal discharge ??? Abnormal vaginal bleeding (especially bleeding after menopause) ?? Last Reviewed Date: 2022 ?? [id number] [employer]. All rights reserved. This information is not intended as a substitute for professional medical care. Always follow your healthcare professional's instructions. ?? Patient Care team information Care Team Personnel Name: Bianca Birmingham MD Position: [facility] Physician - Primary Care Member Role: PCP Address: Address: [address] [place] [id number]- Name: Sheree Diego RN Position: [facility] RN Member Role: Primary Care Nurse Name: Janine Guzman Position: [facility] Outreach Member Role: Lifetime Consulting Physician Name: Rosalia Parsons RN Position: [facility] RN Member Role: Primary Care Nurse Name: Erika Sauceda RN Position: [facility] RN Member Role: Primary Care Nurse Name: Clara Velázquez RN Position: [facility] ED RN W/OE and Tasks Member Role: Primary Care Nurse Name: Emma Flower RN Position: [facility] Hospital Carding Supervisor Member Role: Primary Care Nurse Name: Summer Ratliff RN Position: [facility] RN Member Role: Primary Care Nurse Name: Job Alejandro Position: [facility] ED TA [facility] Member Role: Patient Care Provider Name: Fly Schulz MD Position: [facility] ED Medicine MD Member Role: Admitting Physician Address: Address: [address] [place] [address]- [place] [address]- [place] Name: Oma Olivarez RN Position: [facility] ED RN W/OE and Tasks Member Role: Patient Care Provider Name: Kendy Ortiz Position: [facility] Associate Professional Member Role: Physician Cognos Analyst Address: Address: [address] [place] [address] [place] [address]- [place] Name: Summer Barraza RN Position: [facility] ED RN W/OE and Tasks Member Role: Patient Care Provider Care Team Related Persons Name: YAW MERIDA Address: home [address] [place] [id number] Name: JEM KIMBALL Address: home [address] [place] [address] Name: BEE KIMBALL Address: [employer] Address: home [address] [place] [address] [place]
--- OUTSIDE RECORDS SUMMARY | 2023-08-15 22:36 | XMS_ITS | Continuity of Care Document ---
Author Name Unknown Organization [facility] Address [address] [place] [address]- Care Team Providers Care Mental Health Case Manager Name Role Phone Griselda-Bianca Morales MD Primary Care Physicia n Encounter [facility] Date(s): 12/20/22 - 12/20/[address] [address]- Encounter Diagnosis Depression(Final) - 12/20/22 Discharge Disposition: A-D/C Home Attending Physician: Olga Hernandez MD Admitting Physician: Olga Hernandez MD Referring Physician: Not on Staff, Referring [...] 11/27/22 19:33:00 EST, Route to Pharmacy Electronically, [facility]/pharmacy #[id number], Partial fill upon patient request if the prescription is for a schedule II opioid drug.... Start Date: 11/27/22 Stop Date: 12/04/22 Status: Ordered Percocet-5/325 325 mg-5 mg oral tablet 1 tablet, Tablet, By Mouth, Once, Routine, 12/20/22 19:00:00 EDT, Stop date 12/20/22 19:00:00 EDT Start Date: 12/20/22 Stop Date: 12/20/22 Status: Completed Xarelto 20 mg oral tablet 1 tablet = 20 mg, By Mouth, Daily at supper, # 90 tablet, 3 Refills, Maintenance, 03/09/22 10:32:00EDT, Tablet, [id number], Partial fill upon patient request if the [...] medication at a [facility] vist on 06/11/2020 Vital Signs Most recent to oldest [Reference Range]: 1 2 3 Height 160 cm (12/20/22 5:00 PM) 160 cm (12/20/22 3:54 PM) 160 cm (12/20/22 3:08 PM) Weight 127 kg (12/20/22 5:00 PM) 127 kg (12/20/22 3:54 PM) 127 kg (12/20/22 3:08 PM) Oxygen Saturation [94-100 %] 100 % (12/20/22 5:00 PM) 99 % (12/20/22 3:54 PM) 98 % (12/20/22 2:47 PM) Pulse Rate [55-90 bpm] 88 bpm (12/20/22 5:00 PM) 87 bpm (12/20/22 3:54 PM) 87 bpm (12/20/22 2:47 PM) Body Mass Index [18.5-24.99 kg/m2] 49.61 kg/m2 *>HHI* (12/20/22 5:00 PM) 49.61 kg/m2 *>HHI* (12/20/22 3:54 PM) 49.61 kg/m2 *>HHI* (12/20/22 2:58 PM) Blood Pressure [90-138/55-84 mm Hg] 128/84mm Hg (12/20/22 5:00 PM) 125/79mm Hg (12/20/22 3:54 PM) 136/80mm Hg (12/20/22 2:47 PM) Respiratory Rate [16-30 br/min] 16 br/min (12/20/22 6:02 PM) 18 br/min (12/20/22 5:00 PM) 18 br/min (12/20/22 3:54 PM) Temperature [96.8-100.4 DegF] 98.6 DegF (12/20/22 5:00 PM) 98.7 DegF (12/20/22 3:54 PM) 98.2 DegF (12/20/22 2:47 PM) Mode of Delivery (Oxygen) Room air (12/20/22 5:00 PM) Room air (12/20/22 3:54 PM) Room air (12/20/22 2:47 PM) Blood pressure sites Arm, right (12/20/22 5:00 PM) Arm, right (12/20/22 3:54 PM) Arm, right (12/20/22 2:47 PM) Temperature Route Temporal (12/20/22 5:00 PM) Temporal (12/20/22 3:54 PM) Temporal (12/20/22 2:47 PM) Dry Weight 127 kg (12/20/22 5:00 PM) 127 kg (12/20/22 3:54 PM) 127 kg (12/20/22 3:08 PM) Weight Obtained Via Patient/family state d (12/20/22 2:58 PM) Dry Weight Obtained Via Patient/family s tated (12/20/22 2:58 PM) Social History Social History Type Response Smoking Status Never (less than 100 in lifetime) entered on: 10/12/19 Sex Note * Aurea Cabrera: PERFORM Event Display: Patient Education Leaflets Authored Date: [id number] Depression ?? [id number] Depression Depression is a very common mental health problem. It's not just a state of being unhappy or sad. It's a true disease. The cause seems to be linked to a change in chemicals that send signals in the brain. These things increase a person???s risk of depression: ??? A family history of depression, alcoholism, or suicide ??? Chronic illness ??? Chronic pain ???Migraine headaches ??? High emotional stress Depression may be easier to see in others. You may have a hard time seeing it in yourself. It can show in many physical and emotional ways. These include: ??? Loss of appetite ??? Overeating ??? Not being able to sleep ??? Sleeping too much ??? A lot of tiredness not linked to physical activity ??? Restlessness or irritability ??? Slowness of movement or speech ??? Feeling sad or withdrawn ??? Loss of interest in things you once enjoyed ??? Trouble??concentrating, remembering,??or making decisions ??? Thoughts of harming or killing yourself, or thoughts that life is not worth living ??? Low self-esteem The treatment for depression may include both medicine and psychotherapy. Antidepressants can ease symptoms. They can also make it easier for you to do daily tasks. Therapy can offer emotional support. It can also help you understand things that may be causing the depression. Home care ??? Ongoing care and support help people manage this disease. Find a healthcare provider and therapist who meet your needs. Get help when you feel like you may be getting ill. ??? Be kind to yourself. Make it a point to do things that you enjoy. This may be gardening, walking in nature, or going to a movie. Reward yourself for small successes. ??? Take care of your body. Eat a balanced diet. Eat foods low in saturated fat. Eat a lot of fruits and vegetables. Exercise at least 3 times a week for 30 minutes. Even mild to moderate exercise like brisk walking can make you feel better. ??? Take medicine as prescribed. Don't stop your medicine or change the dose unless you talk with your healthcare provider. ??? Once you start medicine, expect your symptoms to get better slowly. Depression will lift over time. It doesn't get better right away. Ask your healthcare provider how long it will take for a medicine to start working. ??? Don't share your medicine. Don???t use someone else's medicine. ??? Tell your healthcare providers all the medicines you take. This includes prescription and dhgo-gmy-kixnydb medicines. It includes vitamins and herbal supplements. Some supplements caninteract with medicines. They can cause dangerous side effects. Ask your pharmacist about medicine interactions when you have questions. ??? Don't make major decisions until you feel better. This incl udes things such as a job change, a divorce, or a marriage. ??? Don't drink alcohol. It can make depression worse. ??? Talk with your family and??trusted friends??about your feelings and thoughts.??Ask them to help you notice behavior changes early. You can then get help and, if needed, your medicine can be changed. ??? Talk with your healthcare provider if you are not getting better. They may change your medicine or have you try another treatment. ?? Follow-up care Follow up with your healthcare provider as advised. ?? Crisis care Call 988 if you have thoughts of harming yourself or others. When you call or text [phone], you will beconnected to trained crisis counselors. An online chat option is also available. bSafe is free and available 17/04. 988 counselors will work with [facility] to help you get the care you need. Call 988 if you: ??? Have suicidal thoughts, a suicide plan, and a way to carry out the plan ??? Have serious thoughts of hurting someone else ??? Have trouble breathing ??? Are??very confused ??? Feel very drowsy or have??trouble awakening ??? Faint ??? Have new chest pain that becomes more severe, lasts longer, or spreads into your shoulder, arm, neck, jaw, or back ?? When to get medical care Call your healthcare provider right away if any of these happen: ??? Your symptoms get worse ??? You have extreme depression, fear, anxiety, or anger toward yourself or others ??? You feel out of control ??? You feel that you may try to harm yourself or another ??? You hear voices other people don't hear ??? You see things other people don't see ??? You don't sleep or eat for 3 days in a row ??? Friends or family express concern over your behavior and ask you to get help ?? Last Reviewed Date: 2021 ?? [employer]. All rights reserved. This information is not intended as a substitute for professional medical care. Always follow your healthcare professional's instructions. ?? Patient Care team information Care Team Personnel Name: Bianca Birmingham MD Position: [facility] Primary Care Physician Member Role: PCP Address: Address: [address] [place] [address] [place] [address]- [place] Name: Sheree Diego RN Position: [facility] RN Member Role: Primary Care Nurse Name: Janine Guzman Position: [facility] Outreach Member Role: Lifetime Consulting Physician Name: Rosalia Parsons RN Position: [facility] RN Member Role: Primary Care Nurse Name: Erika Sauceda RN Position: [facility] RN Member Role: Primary Care Nurse Name: Clara Velázquez RN Position: [facility] SN RN Member Role: Primary Care Nurse Name: Emma Flower RN Position: [facility] Hospital Mill Recorder Member Role: Primary Care Nurse Name: Summer Ratliff RN Position: [facility] RN Member Role: Primary Care Nurse Name: Yesi Puente RN Position: [facility] ED RN W/OE and Tasks Member Role: Patient Care Provider Name: Aurea Cabrera Position: [facility] Associate Professional Member Role: Physician Inspector Golf Ball Address: Address: [address] [facility] [place] [address]- [place] Name: Olga Hernandez MD Position: [facility] ED Medicine MD Member Role: Admitting Physician Address: Address: [address] [facility] [place] [address]- Care Team Related Persons Name: YAW MERIDA Address: home [address] [place] [id number] Name: JEM KIMBALL Address: [address] [place] [address] Name: BEE KIMBALL Address: [employer] Address: [address] [place] [address]
--- OUTSIDE RECORDS SUMMARY | 2023-08-15 22:36 | XMS_ITS | Continuity of Care Document ---
Author Name Unknown Organization [facility] ter Address [address] [place] [address]- Care Team Providers Care Retail Sales Advisor Name Role Phone Griselda-Carmen PACHECO, Bianca Primary Care Physicia n Encounter [facility] Date(s): 01/09/21 - 01/10/[address] [address] Discharge Disposition: A-D/C Home Attending Physician: Raheem Victor MD Admitting Physician: Raheem Victor MD Referring Physician: Raheem Victor MD Allergies, Adverse Reactions, Alerts Substance Reaction [...] Refills, Maintenance, 07/20/20 14:39:00 EDT, Chew Tablet, [facility]/pharmacy #[id number], 166, cm, 07/16/20 13:29:00 EDT, Height, [...] 12/12/23 15:31:00 EDT, 09/28/20 15:31:00 EST, Solution, [facility]/pharmacy #[id number], 166, cm, 09/08/20 9:21:00 EST, Height, [...] 0 Refills, Maintenance, [id number], 166, cm, 12/29/20 10:48:00 EDT, Height, 158.6, [...] 3 Refills, Maintenance, 06/11/20 15:01:00 EDT, Tablet, [facility]/pharmacy #[id number], 1 tablet By Mouth Daily, 165, cm, 06/11/20 14:30:00 EDT, Height, 161.2, kg, 03/26/20 20:37:00 EDT, Dry Weight Start Date: 06/11/20 Status: Ordered Tylenol 325 mg oral tablet 975 mg, Tablet, By Mouth, Once, PRN for Pain , Moderate, Routine, 01/09/21 23:48:00 EDT Start Date: 01/09/21 Stop Date: 01/09/21 Status: Completed Problem List Condition Effective Dates Status Health Status Inform ant DVT RLE(Confirmed) 1 Active Blood type A-(Confirmed) 03/03/15 Active Constipation in (Confirmed) Active Negative screen Cystic fibrosis(Confirmed) 03/04/15 Active Gestational diabetes mellitus(Confirmed) Active H/O varicella as a child(Confirmed) Active H/O syncope(Confirmed) Active 1Pt currently on Lovenox 160mg BID - placed on this medication at a [facility] vist on 06/11/2020 Vital Signs Most recent to oldest [Reference Range]: 1 2 3 Weight 169.3 kg (01/09/21 10:43 PM) Oxygen Saturation [94-100 %] 97 % (01/10/21 12:30 AM) 98 % (01/09/21 11:30 PM) 98 % (01/09/21 11:08 PM) Blood Pressure [90-138/55-84 mm Hg] 104/51mm Hg (01/09/21 11:08 PM) Respiratory Rate [16-30 br/min] 18 br/min (01/10/21 12:45 AM) 18 br/min (01/09/21 11:01 PM) Temperature [96.8-100.4 DegF] 97.5 DegF (01/09/21 10:43 PM) Mode of Delivery (Oxygen) Room air (01/09/21 11:08 PM) Room air (01/09/21 11:01 PM) Blood pressure sites Arm, right (01/09/21 11:08 PM) Temperature Route Oral (01/09/21 10:43 PM) Dry Weight 169.3 kg (01/09/21 10:43 PM) Weight Obtained Via Standing scale (01/09/21 10:43 PM) Dry Weight Obtained Via Standing scale (01/09/21 10:43 PM) Social History Social History Type Response Smoking Status Never (less than 100 in lifetime) entered on: 10/12/19 Sex Female
--- OUTSIDE RECORDS SUMMARY | 2023-08-15 22:36 | XMS_ITS | Continuity of Care Document ---
Author Name Unknown Organization [facility] Address [address] [place] [address]- Care Team Providers Care Filterer Name Role Phone Valencia PACHECO, Bianca Primary Care Physicia n Encounter [facility] Date(s): 07/27/21 - 07/08/22 [facility] [address] [place] [address]- Discharge Disposition: A-D/C Home Attending Physician: Antonia PACHECO(Hem/Onc), Blair Barraza Admitting Physician: Carlos PACHECO, Ti Pop Referring Physician: Bianca Birmingham MD Allergies, Adverse Reactions, Alerts No Known [...] 05/14/22 20:43:00 EDT, Route to Pharmacy Electronically, [facility]/pharmacy #[id number], Partial fill upon patient request if the prescriptio... Start Date: 05/14/22 Status: Ordered Tylenol 325 mg oral capsule [...] - placed on this medication at a [facility] vist on 06/11/2020 Vital Signs Most recent to oldest [Reference Range]: 1 Height 165 cm (03/09/22 10:06 AM) Weight 137.2 kg (03/09/22 10:06 AM) Pulse Rate [55-90 bpm] 71 bpm (03/09/22 10:06 AM) Body Mass Index [18.5-24.99] 50.39 *>HHI* (03/09/22 10:06 AM) Blood Pressure [90-138/55-84 mm Hg] 131/ 81mm Hg (03/09/22 10:06 AM) Temperature [96.8-100.4 DegF] 97.8 DegF (03/09/22 10:06 AM) Blood pressure sites Arm, right (03/09/22 10:06 AM) Temperature Route Oral (03/09/22 10:06 AM) Dry Weight 137.2 kg (03/09/22 10:06 AM) Weight Obtained Via Standing scale (03/09/22 10:06 AM) Dry Weight Obtained Via Standing scale (03/09/22 10:06 AM) Social History Social History Type Response Smoking Status Never (less than 100 in lifetime) entered on: 10/12/19 Sex Patient Care team information Personnel Name: Bianca Birmingham MD Address: Address: [address] [place] [address] Primary [place], [place] [address]
--- OUTSIDE RECORDS SUMMARY | 2023-08-15 22:36 | XMS_ITS | Continuity of Care Document ---
Author Name Unknown Organization [facility] al Address [address] [place] [address]- Care Team Providers Care Claim Investigator Name Role Phone Griselda-Carmen PACHECO, Bianca Primary Care Physicia n Encounter [facility] Date(s): 01/27/23 - 01/27/[address] [address]- Discharge Disposition: A-D/C Home Attending Physician: Fly [...] 11/27/22 19:33:00 EST, Route to Pharmacy Electronically, [facility]/pharmacy #[id number], Partial fill upon patient request if the prescription is for a schedule II opioid drug.... Start Date: 11/27/22 Stop Date: 12/04/22 Status: Ordered MorPHINE Inj 4 mg, Injection, IV Push Slowly, Every 5 minutes for 3 doses/times, PRN for Pain , Moderate, and SBP greater than 100, Routine, 01/27/23 21:17:00 EDT, Stop date Limited # of times Start Date: 01/27/23 Status: Ordered nitrofurantoin macrocrystals-monohydrate 100 mg oral capsule 1 capsule = 100 mg, By Mouth, 2 times a day, for 7 days, # 14 capsule, 0 Refills, Acute 02/03/23 22:20:00 EDT, 01/27/23 22:20:00 EDT, Capsule, [facility]/pharmacy #[id number], Partial fill upon patient request ifthe prescription is for a schedule II opioid drug.,... Start Date: 01/27/23 Stop Date: 02/03/23 Status: Ordered oxyCODONE 5 mg oral tablet 5 mg, 1, tablet, By Mouth, Every 6 hours, PRN, for 2 days, # 8 tablet, Refills 0, Tot. Refills 0, Acute 01/29/23 22:19:00 EDT, as needed for pain, 01/27/23 22:19:00 EDT, Route to Pharmacy Electronically, [facility]/pharmacy #[id number], Partial fill upon patient r... Start Date: 01/27/23 Stop Date: 01/29/23 Status: Ordered Xarelto 20 mg oral tablet 1 tablet = 20 mg, By Mouth, Daily at supper, # 90 tablet, 3 Refills, Maintenance, 03/09/22 10:32:00EDT, Tablet, [facility]/pharmacy #[id number], Partial fill upon patient [...] - placed on this medication at a [facility] vist on 06/11/2020 Vital Signs Most recent to oldest [Reference Range]: 1 2 3 Height 168 cm (01/27/23 10:19 PM) 168 cm (01/27/23 8:40 PM) Weight 136.3 kg (01/27/23 10:19 PM) 136.3 kg (01/27/23 8:40 PM) Oxygen Saturation [94-100 %] 98 % (01/27/23 10:19 PM) 96 % (01/27/23 8:36 PM) Pulse Rate [55-90 bpm] 69 bpm (01/27/23 10:19 PM) 76 bpm (01/27/23 8:36 PM) Body Mass Index [18.5-24.99 kg/m2] 48.29 kg/m2 *>HHI* (01/27/23 10:19 PM) Blood Pressure [90-138/55-84 mm Hg] 125/71mm Hg (01/27/23 10:19 PM) 134/75mm Hg (01/27/23 8:36 PM) Respiratory Rate [16-30 br/min] 18 br/min (01/27/23 10:19 PM) 18 br/min (01/27/23 9:33 PM) 18 br/min (01/27/23 9:03 PM) Temperature [96.8-100.4 DegF] 98.4 DegF (01/27/23 8:36 PM) Mode of Delivery (Oxygen) Room air (01/27/23 10:19 PM) Room air (01/27/23 8:36 PM) Blood pressure sites Arm, left (01/27/23 10:19 PM) Arm, right (01/27/23 8:36 PM) Temperature Route Oral (01/27/23 8:36 PM) Dry Weight 136.3 kg (01/27/23 10:19 PM) 136.3 kg (01/27/23 8:40 PM) Weight Obtained Via Patient/family state d (01/27/23 8:40 PM) Social History Social History Type Response Smoking Status Never (less than 100 in lifetime) entered on: 10/12/19 Sex Note * Yossi Lovett: PERFORM Event Display: Patient Education Leaflets Authored Date: [id number] Urinary Tract Infections in Women ?? [id number] Urinary Tract Infections in Women Urinary tract infections (UTIs) are most often caused by bacteria. These bacteria enter the urinarytract. The bacteria may come from inside the body. Or they may travel from the skin outside the rectum or vagina into the urethra. Female anatomy makes it easy for bacteria from the bowel to enter a woman???s urinary tract. This is the most common source of UTI. This means women develop UTIs more often than men. Pain in or around the urinary tract is a common UTI symptom. Most UTIs are treated with antibiotics. These kill the bacteria. The length of time you need to take them depends on the type of infection. It may be as short as 3 days. If you have repeated UTIs, you may need a low-dose antibiotic for several months. Take antibiotics exactly as directed. Don???t stop taking them until all of the medicine is gone. If you stop taking the antibiotic too soon, the infection may not go away. You may also develop a resistance to the antibiotic. This can make it muchharder to treat in the future. Gender words are used here to talk about anatomy and health risk. Please use this information in a way that works best for you and your provider as you talk about your care. Home care The lifestyle changes below will help get rid of your UTI. They may also help prevent future UTIs: ??? Drink plenty of fluids. This includes water, juice, or other caffeine-free drinks. Fluids help flush bacteria out of your body. ??? Empty your bladder. Always empty your bladder when you feel the urge to pee. And always pee before going to sleep. Urine that stays in your bladder can lead to infection. Try to pee before and after sex as well. ??? Practice good personal hygiene. Wipe yourself from front to back after using the toilet. This helps keep bacteria from getting into the urethra. ???Use condoms during sex. These help prevent UTIs caused by sexually transmitted bacteria. Also don'tuse spermicides during sex. These can increase the risk for UTIs. Choose other forms of control instead. For women who tend to get UTIs after sex, a low dose of a preventive antibiotic may be used. Be sure to discuss this choice with your healthcare provider. ??? Try holistic supplements, such as cranberry tablets and D-mannose. These may help prevent UTIs. ??? Try topical vaginal estrogen.You can use this to help prevent UTIs if you have gone through menopause. ?? Follow-up care Follow up with your healthcare provider as directed. They may test to make sure the infection has cleared. If needed, more treatment may be started. ?? When to get medical advice Call your healthcare provider right away if any of the following occur: ??? Frequent urination ??? Pain or burning when passing urine ??? Fever of 100.4??F (38??C) or higher, or as directed by your healthcare provider ??? Urine looks dark, cloudy, or reddish in color. This may mean that blood is inthe urine. ??? Urine smells bad ??? Feeling pain even when not urinating ??? Tiredness ??? Pain in the belly (abdomen) area below the bellybutton, or in the back or side, below the ribs ??? Nausea orvomiting ??? Have a strong urge to urinate, but only a small amount of urine is passed ??? Uncomfortable pressure above the pubic bone ??? Feeling confused or very tired (in older adults) ?? Last Reviewed Date: 2022 ?? [id number] [employer]. All rights reserved. This information is not intended as a substitute for professional medical care. Always follow your healthcare professional's instructions. ?? * Yossi Lovett: PERFORM Event Display: Patient Education Leaflets Authored Date: [id number] Painful Menstrual Periods (Dysmenorrhea) ?? [id number] Painful Menstrual Periods (Dysmenorrhea) Dysmenorrhea is the term used to describe painful menstrual periods. The uterus is a muscle. Normally, chemicals called prostaglandins cause the uterus to contract during your period.??The contractions push out the buildup of tissue that occurs each month inside the uterus. If the contraction is very strong, it can cause pain. The pain may feel like??cramping??in the lower belly (abdomen), lower back, or thighs. In severe cases, you may have other symptoms as well. These can include nausea, vomiting, loose stools, sweating, or dizziness. There are two types of dysmenorrhea: Primary dysmenorrhea. This is common menstrual cramps. It may begin 1 or 2 years after you first get your period. It may get better or go away as you get older or when you have a baby. The cramps aremost often felt just before, or on the first day of your period. They may last 1 to 3 days.??It is treated with medicines and comfort measures as described below (see the Home care section). Secondary dysmenorrhea. This??may start later in life.??It describes menstrual pain that occurs dueto an underlying health problem.??The pain may last longer than common menstrual cramps.??It may also get worse over time. Some problems that can lead to secondary dysmenorrhea include:? Pelvic inflammatory disease (PID). Infection that involves the female reproductive organs, suchas the uterus and fallopian tubes. ??? Fibroids. Noncancer (benign) growths within the wall of the uterus. ??? Endometriosis. Tissue that normally only lines the uterus also grows outside of it (because the abnormal tissue??also swells and bleeds each month, it can cause pain). Once the cause of secondary dysmenorrhea is found, it can be treated.??Your healthcare provider will discuss options with you as needed. Your care may also include some of the treatments described below (see the ???Home care?? section). Home care Medicines Certain medicines can help ease or prevent menstrual pain and cramping. These can include: ??? Nonsteroidal anti-inflammatory drugs (NSAIDs), such as ibuprofen ??? Prescription pain medicine, if needed ??? Hormone therapy (this includes most methods of hormonal control such as pills,vaginal rings, patches, shots, or a hormone-releasing IUD) General care To help ease pain and cramping, try these tips: ??? Rest, as needed. ??? Apply a heating pad to thelower belly or back??as directed.??A??warm??bath or massage to these areas may also help. ??? Exercise regularly.??Many people find that being more active each week helps reduce pain and cramping. ??? Ask your healthcare provider for advice about other treatments you can try to help control pain and cramping. ?? Follow-up care Follow up with your healthcare provider, or as advised. ?? When to get medical advice Call your healthcare provider right away if any of these occur: ??? Fever of 100.4??F (38??C) or higher, or as directed by your healthcare provider ??? Pain or cramping gets worse or doesn???t get better with medicine ??? Pain or cramping lasts longer than normal or occurs between periods ??? Abnormal vaginal discharge between periods ??? Bleeding becomes heavy (soaking more than 1 pad or tampon every hour for 3 hours) ??? [place] or herron tissue passes from the vagina ?? Last Reviewed Date: 2022 ?? [id number] [employer]. All rights reserved. This information is not intended as a substitute for professional medical care. Always follow your healthcare professional's instructions. ?? * Yossi Lovett: PERFORM Event Display: Patient Education Leaflets Authored Date: [id number] Unknown Causes of Abdominal Pain (Adult) ?? [id number] Unknown Causes of Abdominal Pain (Adult) The exact cause of your belly (abdominal) pain is not clear. Your exam and tests don't suggest a dangerous cause at this time. This does not mean that this is something to worry about. Everyone likesto know the exact cause of the problem. But sometimes with belly pain, there is no clear-cut cause,and this could be a good thing. Your symptoms can be treated, and you should feel better.?? Your condition does not seem serious now. But sometimes the signs of a serious problem may take more time to appear. For this reason,??it's important for you to watch for any new symptoms, problems,??or worsening of your condition. Over the next few days, the abdominal pain may come and go. Or it may be constant. Other common symptoms can include nausea and vomiting. Sometimes it can be difficult to tell if you feel nauseous. You may just feel bad and not connect that feeling to nausea. Constipation, diarrhea, and a fever maygo along with the pain. The pain may continue even if treated correctly over the following days. Depending on how things go, sometimes the cause can become clear and you may need more??or different treatment. You may also need other evaluations, medicines, or tests. Home care Your healthcare provider may prescribe medicine for pain, symptoms, or an infection. ??Follow the healthcare provider's instructions for taking these medicines. General care ??? Rest as much as you can until your next exam. No strenuous activities. ??? Try to not do anything that may have caused your symptoms. This might be not taking any medicines unless otherwise directed by your healthcare provider. It might be not eating certain foods or doing certain activities. ??? Find positions that ease discomfort. A small pillow placed on your belly may help relieve pain. ??? Something warm on your belly such as a heating pad may help, but be careful not to burn yourself. Diet ??? Don???t??force yourself to eat, especially if having cramps, vomiting, or diarrhea. ??? Water is important so you don't get dehydrated. Soup may also be good. Sports drinks may also help, especially if they are not too acidic. Don't drink sugary drinks as this can make things worse. Take liquids in small amounts. Don???t??guzzle them. ??? Caffeine sometimes makes the pain and cramping worse. ??? Don???t take??dairy products if you have vomiting or diarrhea. ??? Don't eat large amounts at a time. Eat several small meals during the day instead of 2 or 3 larger meals. Wait a few minutesbetween bites. ??? Eat a diet low in fiber (called a low-residue diet). Foods allowed include refined breads, white rice, fruit and vegetable juices without pulp, tender meats. These foods will pass more easily through the intestine. ??? Don???t have??whole-grain foods, whole fruits and vegetables,meats, seeds and nuts, fried or fatty foods, dairy, alcohol and spicy foods until your symptoms go away. ?? Follow-up care Follow up with your healthcare provider, or as advised, if your pain does not begin to improve in the next 24 hours. ?? Call 911 Call?? 911 if any of these occur: ??? Trouble breathing ??? Confusion ??? Fainting or loss of consciousness ??? Rapid heart rate ??? Seizure ?? When to seek medical advice Call your healthcare provider right away if any of these occur: ??? Pain gets worse or moves to theright lower abdomen ??? New or worsening vomiting or diarrhea ??? Swelling of the abdomen ??? Unable to pass stool for more than??3 days ??? Fever of 100.4??F (38??C) or higher, or as directed by your healthcare provider ??? Blood in vomit or bowel movements (dark red or black color) ??? Yellow color of eyes and skin (jaundice) ??? Weakness, dizziness ??? Chest, arm, back, neck, or jaw pain ??? Can't keep down medicines, liquids, or water because of too much vomiting ??? If you have a vagina: unexpected vaginal bleeding or missed period ?? Last Reviewed Date: 2021 ?? [id number] [employer]. All rights reserved. This information is not intended as a substitute for professional medical care. Always follow your healthcare professional's instructions. ?? Patient Care team information Care Team Personnel Name: Bianca Birmingham MD Position: [facility] Primary Care Physician Member Role: PCP Address: Address: [address] [place] [address] - Name: Sheree Diego RN Position: [facility] RN Member Role: Primary Care Nurse Name: Janine Guzman Position: [facility] Outreach Member Role: Lifetime Consulting Physician Name: Rosalia Parsons RN Position: [facility] RN Member Role: Primary Care Nurse Name: Erika Sauceda RN Position: [facility] RN Member Role: Primary Care Nurse Name: Clara Velázquez RN Position: [facility] SN RN Member Role: Primary Care Nurse Name: Emma Flower RN Position: [facility] Hospital Torch Straightener Member Role: Primary Care Nurse Name: Summer Ratliff RN Position: [facility] RN Member Role: Primary Care Nurse Name: Fly Schulz MD Position: [facility] ED Medicine MD Member Role: Admitting Physician Address: Address: [address] [place] [address]- [place] [address]- Name: Yossi Lovett Position: [facility] Associate Professional Member Role: ED Physician Graphic Engineer Address: Address: [address] [place] [address] [place] [address]- Name: Ryan Mccoy RN Position: [facility] ED RN W/OE and Tasks Member Role: Patient Care Provider Name: Latasha Marley Position: [facility] ED TA [facility] Member Role: Harp Regulator Care Team Related Persons Name: YAW MERIDA Address: home [address] [place] [address] Name: JEM KIMBALL Address: home [address] [place] [id number] Name: BEE KIMBALL Address: [employer] Address: [address] [address]
--- OUTSIDE RECORDS SUMMARY | 2023-08-15 22:36 | XMS_ITS | Continuity of Care Document ---
Author Name Unknown Organization [facility] Address [address] [place] [address]- Care Team Providers Care Antique Furniture Repairer Name Role Phone Griselda-Carmen PACHECO, Bianca Primary Care Physicia n Encounter [facility] Date(s): 12/14/20 - 01/13/[address] [address]- Allergies, Adverse Reactions, Alerts Substance Reaction Severity [...] 12/30/20 7:55:00 EDT, Route to Pharmacy Electronically, [facility]/pharmacy #[id number], Partial fill upon patient [...] 12/12/23 15:31:00 EDT, 09/28/20 15:31:00 EST, Solution, [facility]/pharmacy #[id number], 166, cm, 09/08/20 9:21:00 EST, Height, 158.6, kg, 06/29/20 18:27:00 EDT, Dry We... Start Date: 09/28/20 Stop Date: 12/12/23 Status: Ordered MiraLax oral powder for reconstitution = 17 Gm, By Mouth, Daily, dissolve in water before taking, # 527 Gm, 1 Refills, Maintenance, 12/15/20 11:23:00 EDT, REC Powder, [facility]/pharmacy #[id number], Partial fill upon patient request if the prescription is for a schedule II opioid drug., 17 Gm By Mouth... Start Date: 12/15/20 Status: Ordered omeprazole 40 mg oral enteric coated capsule See Instructions, TAKE 1 CAPSULE BY MOUTH DAILY BEFORE A MEAL, # 30 capsule, 0 Refills, Maintenance, [id number], 166, cm, 12/29/20 10:48:00 EDT, Height, 158.6, [...] 3 Refills, Maintenance, 06/11/20 15:01:00 EDT, Tablet, [facility]/pharmacy #[id number], 1 tablet By Mouth Daily, [...] - placed on this medication at a [facility] vist on 06/11/2020 Social History Social History Type Response Smoking Status Never (less than 100 in lifetime) entered on: 10/12/19 Sex Female
--- OUTSIDE RECORDS SUMMARY | 2023-08-15 22:36 | XMS_ITS | Continuity of Care Document ---
Author Name Unknown Organization [facility] Address [address] [place] [address]- Care Team Providers Care Lockstitch Lining Setter Name Role Phone Griselda-Carmen PACHECO, Bianca Primary Care Physicia n Encounter [facility] Date(s): 08/30/22 - 08/30/[address] [address]- Discharge Disposition: A-D/C Walkout Attending Physician: Florentin Mora MD Admitting Physician: [...] 05/14/22 20:43:00 EDT, Route to Pharmacy Electronically, [facility]/pharmacy #[id number], Partial fill upon patient request if the [...] - placed on this medication at a [facility] vist on 06/11/2020 Vital Signs Most recent to oldest [Reference Range]: 1 2 Height 173 cm (08/30/22 1:30 PM) 173 cm (08/30/22 1:28 PM) Weight 145.7 kg (08/30/22 1:30 PM) 145.7 kg (08/30/22 1:28 PM) Oxygen Saturation [94-100 %] 97 % (08/30/22 1:28 PM) Pulse Rate [55-90 bpm] 86 bpm (08/30/22 1:28 PM) Body Mass Index [18.5-24.99 kg/m2] 48.68 kg/m2 *>HHI* (08/30/22 1:28 PM) Blood Pressure [90-138/55-84 mm Hg] 139/ 82mm Hg *H* (08/30/22 1:30 PM) Respiratory Rate [16-30 br/min] 18 br/mi n (08/30/22 1:28 PM) Temperature [96.8-100.4 DegF] 98.2 DegF (08/30/22 1:28 PM) Mode of Delivery (Oxygen) Room air (08/30/22 1:28 PM) Blood pressure sites Arm, left (08/30/22 1:30 PM) Arm, left (08/30/22 1:28 PM) Dry Weight 145.7 kg (08/30/22 1:30 PM) 145.7 kg (08/30/22 1:28 PM) Weight Obtained Via Standing scale (08/30/22 1:28 PM) Social History Social History Type Response Smoking Status Never (less than 100 in lifetime) entered on: 10/12/19 Sex Patient Care team information Care Team Personnel Name: Bianca Birmingham MD Position: [facility] Primary Care Physician Member Role: PCP Address: Address: [address] [place] [id number] Name: Sheree Diego RN Position: [facility] RN Member Role: Primary Care Nurse Name: Janine Guzman Position: [facility] Outreach Member Role: Lifetime Consulting Physician Name: Rosalia Parsons RN Position: [facility] RN Member Role: Primary Care Nurse Name: Erika Sauceda RN Position: [facility] RN Member Role: Primary Care Nurse Name: Clara Velázquez RN Position: [facility] SN RN Member Role: Primary Care Nurse Name: Emma Flower RN Position: [facility] Hospital Station Operator Member Role: Primary Care Nurse Name: Summer Ratliff RN Position: [facility] RN Member Role: Primary Care Nurse Care Team Related Persons Name: YAW MERIDA Address: [address] [address] Name: JEM KIMBALL Address: home [address] [place] [address] Name: BEE KIMBALL Address: [employer] Address: [address] [address] [place]
--- OUTSIDE RECORDS SUMMARY | 2023-08-15 22:36 | XMS_ITS | Continuity of Care Document ---
Author Name Unknown Organization [facility] Address [address] [place] [address]- Care Team Providers Care Eco Industrial Development Consultant Name Role Phone Griselda-Carmen PACHECO, Bianca Primary Care Physicia n En[place] [facility] Date(s): 08/26/20 - 09/25/[address] [address]- Allergies, Adverse Reactions, Alerts Substance Reaction Severity [...] - placed on this medication at a [facility] vist on 06/11/2020 Social History Social History Type Response Smoking Status Never (less than 100 in lifetime) entered on: 10/12/19 Sex Female
--- OUTSIDE RECORDS SUMMARY | 2023-08-15 22:36 | XMS_ITS | Continuity of Care Document ---
Author Name Unknown Organization [facility] Address [address] [place] [address]- Care Team Providers Care Material Control Specialist Name Role Phone Griselda-Carmen PACHECO, Bianca Primary Care Physicia n [place] [facility] Date(s[place] 08/10/20 - 10/29/[address] [address]- Attending Physician: Not on Staff, Attending MD [...] Date: 07/20/20 Stop Date: 04/16/21 Status: Ordered Lovenox 100 mg/mL injectable solution 1 mL = 100 mg, Subcutaneous Injection, Every 12 hours, for 90 days, # 180 mL, 12 Refills, Acute 12/12/23 15:31:00 EDT, 09/28/20 15:31:00 EST, Solution, [facility]/pharmacy #[id number], 166, cm, 09/08/20 9:21:00 EST, Height, 158.6, kg, 06/29/20 18:27:00 EDT, Dry We... Start Date: 09/28/20 Stop Date: 12/12/23 Status: Ordered Multivitamins with FA 0.8 mg oral tablet 1 tablet, By Mouth, Daily, # 100 tablet, 3 Refills, Maintenance, 06/11/20 15:01:00 EDT, Tablet, [facility]/pharmacy #[id number], 1 tablet By Mouth Daily, 165, cm, 06/11/20 14:30:00 EDT, Height, 161.2, kg, 03/26/20 20:37:00 EDT, Dry Weight Start Date: 06/11/20 Status: Ordered Pulmicort Flexhaler 180 mcg 2 puffs, Inhalation, Daily, # 1 Unknown, 0 Refills, Maintenance, 10/26/20 23:21:00 EST, [id number], 30, INHALE 2 PUFFS DAILY, 166, cm, [...] - placed on this medication at a [facility] vist on 06/11/2020 Social History Social History Type Response Smoking Status Never (less than 100 in lifetime) entered on: 10/12/19 Sex Female
--- OUTSIDE RECORDS SUMMARY | 2023-08-15 22:36 | XMS_ITS | Continuity of Care Document ---
Author Name Unknown Organization [facility] Address [address] [place] [address]- Care Team Providers Care Mechanic Welder Name Role Phone Griselda-Carmen PACHECO, Bianca Primary Care Physicia n [facility] [place] 12/05/20 - 01/04/21 [facility] [address] [place] [address]- Allergies, Adverse Reactions, Alerts Substance Reaction Severity [...] 12/30/20 7:55:00 EDT, Route to Pharmacy Electronically, [facility]/pharmacy #[id number], Partial fill upon patient request if the [...] 12/12/23 15:31:00 EDT, 09/28/20 15:31:00 EST, Solution, [facility]/pharmacy #[id number], 166, cm, 09/08/20 9:21:00 EST, Height, 158.6, kg, 06/29/20 18:27:00 EDT, Dry We... Start Date: 09/28/20 Stop Date: 12/12/23 Status: Ordered MiraLax oral powder for reconstitution = 17 Gm, By Mouth, Daily, dissolve in water before taking, # 527 Gm, 1 Refills, Maintenance, 12/15/20 11:23:00 EDT, REC Powder, [facility]/pharmacy #[id number], Partial fill upon patient request if the prescription is for a schedule II opioid drug., 17 Gm By Mouth... Start Date: 12/15/20 Status: Ordered omeprazole 40 mg oral enteric coated capsule See Instructions, TAKE 1 CAPSULE BY MOUTH DAILY BEFORE A MEAL, # 30 capsule, 0 Refills, Maintenance, [id number], 166, cm, 12/29/20 10:48:00 EDT, Height, 158.6, [...] 3 Refills, Maintenance, 06/11/20 15:01:00 EDT, Tablet, [facility]/pharmacy #[id number], 1 tablet By Mouth [...]
--- OUTSIDE RECORDS SUMMARY | 2023-08-15 22:36 | XMS_ITS | Continuity of Care Document ---
Author Name Unknown Organization [facility] Address [address] [place] [address]- Care Team Providers Care Software Engineering Project Manager Name Role Phone Griselda-Bianca Morales MD Primary Care Physicia n Encounter [facility] Date(s): 02/04/21 - 02/04/[address] [address]- Encounter Diagnosis Migraine(Final) - 02/04/21 Leg cramps(Final) - 02/04/21 Discharge Disposition: A-D/C Home Attending Physician: Jeffrey Butcher MD Admitting Physician: Jeffrey Butcher MD Referring Physician: Not on Staff, Referring [...] EDT, Route to Pharmacy Electronically, [facility]/pharmacy #[id number], Partial fill upon patient request if the prescription... Start Date: 12/30/20 Status: Ordered docusate sodium 100 mg oral capsule 1 capsule = 100 mg, By Mouth, 2 times a day, PRN as needed for constipation, # 60 capsule, 0 Refills, Maintenance, 01/21/21 7:55:00 EDT, Capsule, [facility]/pharmacy #[id number], Partial fill upon patient requestif the prescription is for a schedule II opioid elisha... Start Date: 01/21/21 Status: Ordered ibuprofen 600 mg oral tablet 600 mg, 1, tablet, By Mouth, Every 6 hours, PRN, # 30 tablet, Refills 1, Tot. Refills 1, Maintenance, Pain , Moderate, 01/21/21 7:55:00 EDT, Route to Pharmacy Electronically, [facility]/pharmacy #[id number], Partial fill upon patient request if the prescription is... Start Date: 01/21/21 Status: Ordered Lovenox 100 mg/mL injectable solution 1 mL = 100 mg, Subcutaneous Injection, Every 12 hours, for 90 days, # 180 mL, 12 Refills, Acute 12/12/23 15:31:00 EDT, 09/28/20 15:31:00 EST, Solution, [facility]/pharmacy #[id number], 166, cm, 09/08/20 9:21:00 EST, Height, 158.6, kg, 06/29/20 18:27:00 EDT, Dry We... Start Date: 09/28/20 Stop Date: 12/12/23 Status: Ordered MiraLax oral powder for reconstitution = 17 Gm, By Mouth, Daily, dissolve in water before taking, # 527 Gm, 1 Refills, Maintenance, 12/15/20 11:23:00 EDT, REC Powder, [facility]/pharmacy #[id number], Partial fill upon patient request if the prescription is for a schedule II opioid drug., 17 Gm By Mouth... Start Date: 12/15/20 Status: Ordered MorPHINE Inj 4 mg, Injection, IV Push Slowly, Every 5 minutes for 3 doses/times, PRN for Pain , Moderate, and SBP greater than 100, Routine, 02/04/21 3:50:00 EDT, Stop date Limited # of times Start Date: 02/04/21 Stop Date: 02/04/21 Status: Discontinued omeprazole 40 mg oral enteric coated capsule See Instructions, TAKE 1 CAPSULE BY MOUTH DAILY BEFORE A MEAL, # 30 capsule, 0 Refills, Maintenance, [facility]ORE 01254, 165, cm, 01/18/21 1:48:00 EDT, Height, 170.5, [...] - placed on this medication at a [facility] vist on 06/11/2020 Vital Signs Most recent to oldest [Reference Range]: 1 2 3 Oxygen Saturation [94-100 %] 96 % (02/04/21 5:33 AM) 99 % (02/04/21 4:33 AM) 99 % (02/04/21 2:09 AM) Pulse Rate [55-90 bpm] 71 bpm (02/04/21 5:33 AM) 68 bpm (02/04/21 4:33 AM) 74 bpm (02/04/21 2:09 AM) Blood Pressure [90-138/55-84 mm Hg] 145/80mm Hg *H* (02/04/21 5:33 AM) 113/72mm Hg (02/04/21 4:33 AM) 131/87mm Hg (02/04/21 2:45 AM) Respiratory Rate [16-30 br/min] 19 br/min (02/04/21 5:33 AM) 19 br/min (02/04/21 4:38 AM) 22 br/min (02/04/21 4:33 AM) Temperature [96.8-100.4 DegF] 97.5 DegF (02/04/21 5:33 AM) 97.9 DegF (02/04/21 2:09 AM) Mode of Delivery (Oxygen) Room air (02/04/21 5:33 AM) Room air (02/04/21 4:33 AM) Room air (02/04/21 2:09 AM) Blood pressure sites Arm, right (02/04/21 5:33 AM) Arm, left (02/04/21 4:33 AM) Arm, left (02/04/21 2:45 AM) Temperature Route Oral (02/04/21 5:33 AM) Oral (02/04/21 2:09 AM) Social History Social History Type Response Smoking Status Never (less than 100 in lifetime) entered on: 10/12/19 Sex
--- OUTSIDE RECORDS SUMMARY | 2023-08-15 22:36 | XMS_ITS | Continuity of Care Document ---
Author Name Unknown Organization [facility] Address [address] [place] [address]- Care Team Providers Care Bean Sprout Laborer Name Role Phone Valencia PACHECO, Bianca Primary Care Physicia n Encounter [facility] Date(s): 03/16/21 - 07/08/21 [facility] [address] [place] [address]- Discharge Disposition: A-D/C Home Attending Physician: Antonia PACHECO(Hem/Onc), Blair Barraza Admitting Physician: Carlos PACHECO, Ti Pop Referring Physician: Bianca Birmingham MD Allergies, Adverse Reactions, Alerts Substance Reaction [...] [id number] Partial fill upon patient request if the prescription... Start Date: 12/30/20 Status: Ordered docusate sodium 100 mg oral capsule 1 capsule = 100 mg, By Mouth, 2 times a day, PRN as needed for constipation, # 60 capsule, 0 Refills, Maintenance, 01/21/21 7:55:00 EDT, Capsule, [facility]/pharmacy #[id number], Partial fill upon patient requestif the prescription is for a schedule II opioid elisha... Start Date: 01/21/21 Status: Ordered ibuprofen 600 mg oral tablet 600 mg, 1, tablet, By Mouth, Every 6 hours, PRN, # 30 tablet, Refills 1, Tot. Refills 1, Maintenance, Pain , Moderate, 01/21/21 7:55:00 EDT, [id number] Partial fill upon patient request if the prescription is... Start Date: 01/21/21 Status: Ordered MiraLax oral powder for reconstitution = 17 Gm, By Mouth, Daily, dissolve in water before taking, # 527 Gm, 1 Refills, Maintenance, 12/15/20 11:23:00 EDT, REC Powder, [facility]/pharmacy #[id number], Partial fill upon patient request if the prescription is for a schedule II opioid drug., 17 Gm By Mouth... Start Date: 12/15/20 Status: Ordered omeprazole 40 mg oral enteric coated capsule See Instructions, TAKE 1 CAPSULE BY MOUTH DAILY BEFORE A MEAL, # 30 capsule, 0 Refills, Maintenance, [facility] [address]2544, 165, cm, 01/18/21 1:48:00 EDT, Height, 170.5, [...] placed on this medication at a [facility] vist on 06/11/2020 Social History Social History Type Response Smoking Status Never (less than 100 in lifetime) entered on: 10/12/19 Sex
--- OUTSIDE RECORDS SUMMARY | 2023-08-15 22:36 | XMS_ITS | Continuity of Care Document ---
Author Name Unknown Organization [facility] Address [address] [place] [address]- Care Team Providers Care Chief Cook Name Role Phone Valencia PACHECO, Bianca Primary Care Physicia n Encounter [facility] Date(s): 01/21/21 - 04/07/[address] [address]- Attending Physician: Not on Staff, Attending MD Referring Physician: Bianca Birmingham MD Allergies, Adverse [...] 12/30/20 7:55:00 EDT, Route to Pharmacy Electronically, [facility]/pharmacy #[id number], Partial fill upon patient request if the prescription... Start Date: 12/30/20 Status: Ordered docusate sodium 100 mg oral capsule 1 capsule = 100 mg, By Mouth, 2 times a day, PRN as needed for constipation, # 60 capsule, 0 Refills, Maintenance, 01/21/21 7:55:00 EDT, Capsule, [facility]/pharmacy #[id number], Partial fill upon patient requestif the prescription is for a schedule II opioid elisha... Start Date: 01/21/21 Status: Ordered ibuprofen 600 mg oral tablet 600 mg, 1, tablet, By Mouth, Every 6 hours, PRN, # 30 tablet, Refills 1, Tot. Refills 1, Maintenance, Pain , Moderate, 01/21/21 7:55:00 EDT, Route to Pharmacy Electronically, [facility]/pharmacy #[id number], Partial fill upon patient request if the prescription is... Start Date: 01/21/21 Status: Ordered MiraLax oral powder for reconstitution = 17 Gm, By Mouth, Daily, dissolve in water before taking, # 527 Gm, 1 Refills, Maintenance, 12/15/20 11:23:00 EDT, REC Powder, [facility]/pharmacy #[id number], Partial fill upon patient request if the prescription is for a schedule II opioid drug., 17 Gm By Mouth... Start Date: 12/15/20 Status: Ordered omeprazole 40 mg oral enteric coated capsule See Instructions, TAKE 1 CAPSULE BY MOUTH DAILY BEFORE A MEAL, # 30 capsule, 0 Refills, Maintenance, [facility] [id number], 165, cm, 01/18/21 1:48:00 EDT, Height, 170.5, [...] - placed on this medication at a [facility] vist on 06/11/2020 Social History Social History Type Response Smoking Status Never (less than 100 in lifetime) entered on: 10/12/19 Sex
--- OUTSIDE RECORDS SUMMARY | 2023-08-15 22:36 | XMS_ITS | Continuity of Care Document ---
Author Name Unknown Organization [facility] Address [address] [place] [address]- Care Team Providers Care Fish Hatchery Specialist Name Role Phone Griselda-Carmen PACHECO, Bianca Primary Care Physicia n Encounter [facility] Date(s): 01/01/21 - 01/01/[address] [address]- Discharge Disposition: A-D/C Home Attending Physician: Donna [...] Refills, Maintenance, 07/20/20 14:39:00 EDT, Chew Tablet, [facility]/pharmacy #[id number], 166, cm, 07/16/20 13:29:00 EDT, Height, 158.6, kg, 06/29/20 18:27:00 EDT, Dry Weight Start Date: 07/20/20 Stop Date: 04/16/21 Status: Ordered Colace sodium 100 mg oral capsule 100 mg, 1, capsule, By Mouth, 2 times a day, PRN, # 30 capsule, Refills 2, Tot. Refills 2, Maintenance, for constipation, 12/30/20 7:55:00 EDT, Route to Pharmacy Electronically, [facility]/pharmacy #[id number], Partial fill upon [...] 12/12/23 15:31:00 EDT, 09/28/20 15:31:00 EST, Solution, [facility]/pharmacy #[id number], 166, cm, 09/08/20 9:21:00 EST, Height, 158.6, kg, 06/29/20 18:27:00 EDT, Dry We... Start Date: 09/28/20 Stop Date: 12/12/23 Status: Ordered MiraLax oral powder for reconstitution = 17 Gm, By Mouth, Daily, dissolve in water before taking, # 527 Gm, 1 Refills, Maintenance, 12/15/20 11:23:00 EDT, REC Powder, [facility]/pharmacy #[id number], Partial fill upon patient request if the prescription is for a schedule II opioid drug., 17 Gm By Mouth... Start Date: 12/15/20 Status: Ordered omeprazole 40 mg oral enteric coated capsule See Instructions, TAKE 1 CAPSULE BY MOUTH DAILY BEFORE A MEAL, # 30 capsule, 0 Refills, Maintenance, [facility] STORE [id number], 166, cm, 12/29/20 10:48:00 EDT, Height, 158.6, [...] 3 Refills, Maintenance, 06/11/20 15:01:00 EDT, Tablet, [facility]/pharmacy #[id number], 1 tablet By [...] Most recent to oldest [Reference Range]: 1 Oxygen Saturation [94-100 %] 98 % (01/01/21 12:29 PM) Blood Pressure [90-138/55-84 mm Hg] 138/ 70mm Hg (01/01/21 12:29 PM) Respiratory Rate [16-30 br/min] 18 br/mi n (01/01/21 12:29 PM) Temperature [96.8-100.4 DegF] 97.9 DegF (01/01/21 12:29 PM) Mode of Delivery (Oxygen) Room air (01/01/21 12:29 PM) Blood pressure sites Arm, right (01/01/21 12:29 PM) Temperature Route Oral (01/01/21 12:29 PM) Social History Social History Type Response Smoking Status Never (less than 100 in lifetime) entered on: 10/12/19 Sex Female
--- OUTSIDE RECORDS SUMMARY | 2023-08-15 22:36 | XMS_ITS | Continuity of Care Document ---
Author Name Unknown Organization [facility] Address [address] [place] [address]- Care Team Providers Care Landscape Engineer Name Role Phone Valencia PACHECO, Bianca Primary Care Physicia n Encounter [facility] Date(s): 03/03/23 - 08/08/23 [facility] [address] [place] [address]- Discharge Disposition: A-D/C Home Attending Physician: Antonia [...] 11:13:00 EDT Start Date: 07/03/23 Status: Ordered furosemide 20 mg oral tablet 20 mg, 1, tablet, By Mouth, Daily, # 7 tablet, Refills 0, Tot. Refills 0, Maintenance, 11/27/22 19:33:00 EST, Route to Pharmacy Electronically, [facility]/pharmacy #[id number], Partial fill upon patient request if the prescription is for a schedule II opioid drug.... Start Date: 11/27/22 Stop Date: 12/04/22 Status: Ordered ondansetron 4 mg oral tablet, disintegrating 1 tablet = 4 mg, By Mouth, Every 8 hours, PRN as needed for nausea/vomiting, for 3 days, # 9 tablet, 0 Refills, Acute 08/10/23 20:59:00 EST, 08/07/23 20:59:00 EST, DIS Tablet, [facility]/pharmacy #[id number], Partial fill upon patient request if the prescription i... Start Date: 08/07/23 Stop Date: 08/10/23 Status: Ordered oxyCODONE 5 mg oral tablet 5 mg, 1, tablet, By Mouth, Every 6 hours, PRN, for 3 days, # 5 tablet, Refills 0, Tot. Refills 0, Acute 08/10/23 20:59:00 EST, as needed for pain, 08/07/23 20:59:00 EST, Route to Pharmacy Electronically, [facility]/pharmacy #[id number], Partial fill upon patient r... Start Date: 08/07/23 Stop Date: 08/10/23 Status: Ordered ProAir HFA 90 mcg/inh inhalation aerosol 2 puffs, Inhalation, 4 times a day, PRN Wheezing/Shortness of Breath, # 18 Gm, 0 Refills, Maintenance, 07/03/23 15:16:00 EDT, [facility]/pharmacy #[id number], Partial fill upon patient request if [...] placed on this medication at a [facility] vist on 06/11/2020 Social History Social History Type Response Smoking Status Never (less than 100 in lifetime) entered on: 10/12/19 Sex Patient Care team information Care Team Personnel Name: Bianca Birmingham MD [facility] Physician - Primary Care Member Role: PCP Address: Address: [address] [place] [address] [place] [address]- Name: Sheree Diego RN Position[facility] RN Member Role: Primary Care Nurse Name: Janine Guzman Position: [facility] Outreach Member Role: Lifetime Consulting Physician Name: Rosalia Parsons RN Position: [facility] RN Member Role: Primary Care Nurse Name: Erika Sauceda RN Position[facility] RN Member Role: Primary Care Nurse Name: Clara Velázquez RN Position: [facility] ED RN W/OE and Tasks Member Role: Primary Care Nurse Name: Emma Flower RN Position: [facility] Hospital Restaurant Crew Member Member Role: Primary Care Nurse Name: Summer Ratliff RN Position[facility] RN Member Role: Primary Care Nurse Name: Antonia PACHECO(Hem/Onc), Blair Barraza Position: [facility] Physician - Oncology Med Service: Hematology & Oncology Member Role: Attending Physician Address: Address: [address] [place] [address] for [facility] Hematology Oncology [address] Name: Ti Gonzalez MD Position[facility] Physician - Oncology Med Service: Hematology & Oncology Member Role: Admitting Physician Address: Address: [address] [place] [address] Hemat[address] On[address] Care Team Related Persons Name: YAW MERIDA Address: home [address] [place] [address] Name: JEM KIMBALL Address: home [address] [place] [address] Name: BEE KIMBALL [facility] Address: home [address] [place] [address] [place]
--- OUTSIDE RECORDS SUMMARY | 2023-08-15 22:36 | XMS_ITS | Continuity of Care Document ---
Author Name Unknown Organization [facility] Address [address] [place] [address]- Care Team Providers Care Claim Manager Name Role Phone Valencia PACHECO, Bianca Primary Care Physicia n Encounter [facility] Date(s): 03/24/21 - 04/23/21 [facility] [address] [place] [id number]- Allergies, Adverse Reactions, Alerts Substance Reaction Severity [...] 3 Refills, Maintenance, 06/11/20 15:00:00 EDT, Solution, [facility]/pharmacy #[id number], 165, cm, 06/11/20 14:30:00 EDT, Height, 161.2, kg, 03/26/20 20:37:00 EDT, Dry Weight Start Date: 06/11/20 Status: Ordered Colace sodium 100 mg oral capsule 100 mg, 1, capsule, By Mouth, 2 times a day, PRN, # 30 capsule, Refills 2, Tot. Refills 2, Maintenance, for constipation, 12/30/20 7:55:00 EDT, Route to Pharmacy Electronically, [facility]/pharmacy #[id number], Partial fill upon patient request if the prescription... Start Date: 12/30/20 Status: Ordered docusate sodium 100 mg oral capsule 1 capsule = 100 mg, By Mouth, 2 times a day, PRN as needed for constipation, # 60 capsule, 0 Refills, Maintenance, 01/21/21 7:55:00 EDT, Capsule, [facility]/pharmacy #[id number], Partial fill upon patient requestif the prescription is for a schedule II opioid elisha... Start Date: 01/21/21 Status: Ordered ibuprofen 600 mg oral tablet 600 mg, 1, tablet, By Mouth, Every 6 hours, PRN, # 30 tablet, Refills 1, Tot. Refills 1, Maintenance, Pain , Moderate, 01/21/21 7:55:00 EDT, Route to Pharmacy Electronically, [facility]/pharmacy #[id number], Partial fill upon patient request if the prescription is... Start Date: 01/21/21 Status: Ordered MiraLax oral powder for reconstitution = 17 Gm, By Mouth, Daily, dissolve in water before taking, # 527 Gm, 1 Refills, Maintenance, 12/15/20 11:23:00 EDT, REC Powder, [facility]/pharmacy #[id number], Partial fill upon patient request if the prescription is for a schedule II opioid drug., 17 Gm By Mouth... Start Date: 12/15/20 Status: Ordered omeprazole 40 mg oral enteric coated capsule See Instructions, TAKE 1 CAPSULE BY MOUTH DAILY BEFORE A MEAL, # 30 capsule, 0 Refills, Maintenance, [facility] STORE [id number], 165, cm, 01/18/21 1:48:00 EDT, Height, 170.5, [...] - placed on this medication at a [facility] vist on 06/11/2020 Social History Social History Type Response Smoking Status Never (less than 100 in lifetime) entered on: 10/12/19 Sex
--- NOTE | 2023-08-15 22:48 | ED.FALL ---
HPI - Fall General Chief Complaint: Fall Stated Complaint: FALL +HEAD STRIKE,+LOC, -THINNERS Time Seen by Provider: 08/15/23 22:47 Source: patient Mode of arrival: ambulatory Limitations: no limitations History of Present Illness HPI Narrative: This is a 33-year-old female presenting from [facility] where she is on a Section for suicidal ideation and depression she comes in today status post fall after patient was given Ambien Malindaquel, she reports that she tried to get out of bed, and fell, hit her head, loss consciousness, tried to get up from the ground afterwards however felt dizzy. Reporting pain to the left side of her forehead, nose and neck. Reports this has never happened to her before. Denies chest pain or shortness of breath prior to fall. Patient denies chest pain, shortness of breath visual disturbances, weakness, nausea, vomiting, abdominal pain, altered mental status at this time. NIHSS-0 GCS-15 Related Data Home Medications Medication Instructions Recorded Confirmed lorazepam 1 mg tablet 1 mg PO TID PRN Anxiety 12/26/22 12/26/22 Previous Rx's Medication Instructions Recorded bupropion HCl 150 mg 24 hr tablet, 150 mg PO QAM #14 tabs 12/26/22 extended release (Wellbutrin XL) lorazepam 1 mg tablet 1 mg PO BID PRN anxiety #14 tabs 12/26/22 Allergies Allergy/AdvReac Type Severity Reaction Status Date / Time No Known Allergies Allergy Verified 12/26/22 09:38 Review of Systems Review of Systems: Constitutional : No Weight loss, No Fever, No Chills, No Fatigue, No Malaise ENT/Mouth : No sore throat, No Rhinorrhea, + facial pain Eyes: No Eye Pain, No Swelling, No Redness Cardiovascular : No Chest Pain, No SOB, No Dyspnea on Exertion, No Orthopnea, No Edema, No Palpitations Respiratory : No Cough, No Sputum, No Wheezing Gastrointestinal : No Nausea, No Vomiting, No Diarrhea, No Constipation, No abdominal Pain, No Hematochezia, No Melena Genitourinary : No Dysuria, No Urinary Frequency, No Hematuria, Musculoskeletal : No joint pain, No Myalgias, No Joint Swelling Skin : No Skin Lesions, No rash Neuro : No Weakness, No Numbness, No Dizziness, + Headache Psych : No Anxiety/Panic, No Depression All other systems reviewed and are negative Yes all other systems are reviewed and are negative [facility] Past Medical History Attestation statement: The following information was validated with the patient. Source: old records reviewed and nursing notes reviewed Social History Smoked in Last 30 Days: No Use of substances other than those prescribed or required for medical reasons: No Advance Directives: No Advance Directives Information Provided: No Patient : No Physical Exam Vital Signs: Vital Signs: Last Vital Signs Temp 97.7 F 08/16/23 00:04 Pulse 94 08/16/23 00:57 Resp 16 08/16/23 00:04 BP 159/109 H 08/16/23 00:57 Pulse Ox 98 08/16/23 00:04 O2 Del Method Room Air 08/16/23 00:04 BMI result Body Mass Index 49.9 vss Appearance: Alert.? Oriented X3.? No acute distress.? Head: Normocephalic, atraumatic, no step-offs or deformities Eyes: Pupils equal, round and reactive to light.? EOMI no nerve entrapment ENT: Pharynx normal.? Neck: Normal inspection.? Neck supple.? CVS: Normal heart rate and rhythm.? Pulses normal.? Respiratory: No respiratory distress.? Breath sounds normal.? Abdomen: Soft and nontender.? Skin: Skin warm and dry.? Normal skin color.? Normal skin turgor.? Extremities: No lower extremity edema.? No calf ttp. 5/5 strength to bilateral upper and lower extremities negative Romberg and pronator drift. Neuro: Oriented X 3.? No motor deficit.? No sensory deficit. CN 2-12 intact . Normal [id number]-we-zkjt, ggjk-qm-rmco, steady tandem gait normal coordination peer Course Reevaluation(s) Reevaluation #1: CBC within normal limits. Chemistry unremarkable. Troponin negative, EKG nonischemic showing sinus tach without ST elevations or inversions, tachycardia likely secondary to anxiety. Beta hCG negative . Chest x-ray unremarkable. CT scans pending. Patient complaining only of anxiety at this time. Time: 01:12 Reevaluation #2: CT of head with no acute intracranial abnormality no acute fracture traumatic malalignment of cervical spine. No facial fracture. 2.5 cm right thyroid nodule. Will have her follow up outpatient . Educated patient on diagnosis and treatment plan, answered all question, patient verbalizes understanding. At this time patient will be discharged home, advised to return with new or worsening symptoms. Educated on worrisome signs and symptoms and when to return. At this time I feel comfortable discharge home. Time: 01:15 Medications Administered Discontinued Medications Generic Name Dose Route Start Last Admin Trade Name Ezequiel PRN Reason Stop Dose Admin Diphenhydramine HCl 25 mg 08/16/23 00:45 08/16/23 00:59 Diphenhydramine Hcl 25 Mg Capsule PO 08/16/23 00:46 25 mg ONCE ONE Administration Lorazepam 1 mg 08/16/23 00:45 08/16/23 00:59 Lorazepam 1 Mg Tablet PO 08/16/23 00:46 1 mg ONCE ONE Administration Medical Decision Making Medical Decision Making [facility] Narrative: 33-year-old female presents status post fall with head strike, and loss of consciousness. Reporting pain to left side of forehead, nose and neck. Coming from [facility] Physical exam benign Will rule out traumatic injury to head, neck, facial bones. I suspect patient felt dizzy and fell secondary to medications vs syncpoe versus syncope versus orthostatic hypotension. Will obtain EKG to rule out dysrhythmia although unlikely. I do not suspect ACS or PE on this patient. Unlikely stroke, posterior stroke. No signs of optic nerve entrapment Plan at this time imaging, labs, EKG Differential Diagnosis Differential Diagnoses: The differential diagnosis associated with the presentation includes Will rule out traumatic injury to head, neck, facial bones. I suspect patient felt dizzy and fell secondary to medications vs syncope versus orthostatic hypotension. Will obtain EKG to rule out dysrhythmia although unlikely. I do not suspect ACS or PE on this patient. Unlikely stroke, posterior stroke. No signs of optic nerve entrapment Admission/Observation Consideration of admission/observation: Escalation of care including admission/observation considered Unlikely Lab Data [facility] Lab Attestation statement: I reviewed the patient's lab results. 08/15/23 23:04 08/15/23 23:04 Labs: Lab Results 08/15/23 Range/Units 23:04 WBC 10.1 (4.8-10.8) X10*3/uL RBC 5.32 (4.20-5.50) X10*6/uL Hgb 13.8 (12.0-16.0) g/dl Hct 42.8 (37.0-47.0) % MCV 80.5 (80.0-98.0) fL MCH 25.9 L (27.0-33.0) pg MCHC 32.2 (31.0-35.0) g/dl RDW 14.1 (11.0-16.0) % Plt Count 246 (160-400) X10*3/uL MPV 11.9 (9.4-12.3) fL Immature Gran % (Auto) 0.3 (0.0-0.4) % Neut % (Auto) 69.9 (45-73) % Lymph % (Auto) 22.3 (20-40) % [place] % (Auto) 6.8 (2-11) % Eos % (Auto) 0.4 (0-4) % Baso % (Auto) 0.3 (0-2) % Lymph # (Auto) 2.3 (1.2-4.9) X10*3/uL [place] # (Auto) 0.7 (0.1-1.2) X10*3/uL Eos # (Auto) 0.0 (0.0-0.4) X10*3/uL Baso # (Auto) 0.0 (0.0-0.2) X10*3/uL Abs Immat Gran (auto) 0.03 (0.00-0.03) X10*3/uL Absolute Neuts (auto) 7.1 (2.0-8.3) x10*3/uL Absolute Nucleated RBC 0.000 (0.0-0.012) X10*3/uL Nucleated RBC % (auto) 0.0 (0.0-0.2) /100WBC Sodium 142 (135-145) mmol/L Potassium 4.1 (3.3-5.1) mmol/L Chloride 109 H (96-108) mmol/L Carbon Dioxide 25 (22-29) mmol/L Anion Gap 12 (12-20) BUN 16 (9-16) mg/dL Creatinine 0.82 (0.5-1.4) mg/dL Estim Creat Clear Calc 137.8 Estimated GFR > 60 Random Glucose 96 (60-115) mg/dL Calcium 9.5 (8.4-10.2) mg/dL Total Bilirubin 0.5 (0.0-1.0) mg/dL AST 12 (5-31) U/L ALT 19 (0-31) U/L Alkaline Phosphatase 70 (39-117) U/L Troponin I High Sens < 2.7 (<3.5-17.0) ng/L Total Protein 7.1 (6.5-8.0) g/dL Albumin 4.2 (3.5-5.0) g/dL Beta HCG, Quant < 2 mIU/mL Independent Interpretation I performed an independent interpretation of an: EKG, Plain X-Ray and CT Scan Radiology Impression Discussion of test interpretation with radiology: I have reviewed the radiologist's reading. Chronic Conditions Patient?s care impacted by: Other (Major depression) Critical Care Time Critical Care Time Critical Care Time: No Discharge Plan Discharge Clinical Impression: Fall, Concussion with loss of consciousness, Anxiety, Facial pain, Polypharmacy Patient Disposition: Home, Self-Care Instructions: Anxiety (ED), Concussion (ED), Post Concussion Syndrome (ED), Fall Prevention (ED) Additional Instructions: Take your medications as prescribed. If you were prescribed antibiotics today, it is important that you take your medication to their entirety, do not skip any doses, do not finish them early. Follow-up with your primary care provider this week. Return to the emergency department with new or worsening symptoms. Such as fevers, chills, chest pain, shortness of breath, nausea, vomiting, dizziness, headache, vision changes, lethargy In case of emergency call 911 Look out for signs and symptoms of post concussive syndrome please read the handout on return of any of these arise CT/CT head/brain wo IV con IMPRESSION: 1. No acute intracranial abnormality. 2. No cervical spine fracture or traumatic malalignment. 3. No facial fracture. 4. 2.5 cm right thyroid nodule. Recommend further assessment with outpatient thyroid ultrasound. XR/XR chest 1V IMPRESSION: Unremarkable examination. Prescriptions: No Action lorazepam 1 mg Tablet 1 mg PO TID PRN (Reason: Anxiety) bupropion HCl [Wellbutrin XL] 150 mg tablet extended release 24 hr 150 mg PO QAM Qty: 14 0RF lorazepam 1 mg tablet 1 mg PO BID PRN (Reason: anxiety) Qty: 14 0RF Referrals: Physician,Unknown J [Primary Care Provider] - 2 days
--- NOTE | 2023-08-15 23:07 | MHC.EDTECH ---
Patient was biba from [facility] ,ekg taken and was read by Provider ,blood drawn and sent to lab ,Patient was change into (green ) gown ,Patient belongings are locked up in locker #9 in Pod ,This pct is assign to Provide 1: 1 with Patient .
[2023-08-15 23:10] LABS: MANUAL DIFF FLAG NO
[2023-08-15 23:11] LABS: Basophils Percent Auto 0.3 % (0-2); Eosinophils Percent Auto 0.4 % (0-4); Hematocrit 42.8 % (37.0-47.0); Hemoglobin 13.8 g/dl (12.0-16.0); Imm Gran Abs Auto 0.03 X10*3/uL (0.00-0.03); Imm Gran Pct Auto 0.3 % (0.0-0.4); Lymphocytes Absolute Auto 2.3 X10*3/uL (1.2-4.9); Lymphocytes Percent Auto 22.3 % (20-40); Mean Corpuscular HGB Conc 32.2 g/dl (31.0-35.0); Mean Corpuscular Hemoglobin 25.9 pg (27.0-33.0); Mean Corpuscular Volume 80.5 fL (80.0-98.0); Mean Platelet Volume 11.9 fL (9.4-12.3); Monocytes Absolute Auto 0.7 X10*3/uL (0.1-1.2); Monocytes Percent Auto 6.8 % (2-11); Neutrophils Absolute Auto 7.1 x10*3/uL (2.0-8.3); Neutrophils Percent Auto 69.9 % (45-73); Platelet Count 246 X10*3/uL (160-400); Red Blood Count 5.32 X10*6/uL (4.20-5.50); Red Cell Distribution Width 14.1 % (11.0-16.0); White Blood Count 10.1 X10*3/uL (4.8-10.8)
--- NOTE | 2023-08-15 23:24 | MHC.EDTECH ---
Patient remove the C - Collar and threw it on the floor RN Kiwon aware .
[2023-08-15 23:25] LABS: Alanine Aminotransferase 19 U/L (0-31); Albumin Level 4.2 g/dL (3.5-5.0); Alkaline Phosphatase 70 U/L (39-117); Anion Gap 12 (12-20); Aspartate Amino Transferase 12 U/L (5-31); Bilirubin Total 0.5 mg/dL (0.0-1.0); Blood Urea Nitrogen 16 mg/dL (9-16); Calcium 9.5 mg/dL (8.4-10.2); Carbon Dioxide 25 mmol/L (22-29); Chloride 109 mmol/L (96-108); Creatinine Clr Calc Pharmacy 137.8; Estimated Glomerular Filt Rate > 60; Glucose Random 96 mg/dL (60-115); Potassium 4.1 mmol/L (3.3-5.1); Sodium 142 mmol/L (135-145); Total Protein 7.1 g/dL (6.5-8.0)
[2023-08-15 23:37] LABS: Troponin-I High Sensitivity < 2.7 ng/L (<3.5-17.0)
--- NOTE | 2023-08-15 23:43 | PC.NURSE ---
pt removed her cervical collar, Dr. hunter
[2023-08-15 23:56] LABS: HCG Quantitative < 2 mIU/mL
[2023-08-16 00:04] VITALS: BP 136/106; PULSE 96; RESP 16; TEMP 36.5; O2SAT 98
[2023-08-16 00:44] VITALS: BP 107/86; PULSE 86
[2023-08-16 00:57] VITALS: BP 123/72; BP 159/109; PULSE 105; PULSE 94
[2023-08-16] MEDS: LORazepam 1 MG TABLET PO ×2 (00:59→02:53)
[2023-08-16] MEDS: diphenhydrAMINE HCL 25 MG CAPSULE PO (00:59)
--- NOTE | 2023-08-16 01:22 | PC.NURSE ---
pt stated that she does not want to go back to [facility]
--- NOTE | 2023-08-16 01:37 | MHC.EDTECH ---
CALL OUT TO MARITA AT [phone] TO BOOK TRANSPORT BACK TO [facility], ESTIMATED ETA GIVEN WAS [phone]
--- NOTE | 2023-08-16 02:03 | MHC.EDTECH ---
Addendum entered by Deshawn Andrea 08/16/23 03:06: Patient is still up set and agitated ,But Patient did allow this pct to do vitals . Original Note: PATIENT VERY AGITATED BECAUSE SHE WAS NOT GETTING STRONGER PAIN MEDS ,REFUSED VITALS ,RN YAW AWARE .
[2023-08-16 02:59] VITALS: BP 137/94; PULSE 90; RESP 16; TEMP 36.6; O2SAT 97
--- NOTE | 2023-08-16 03:13 | PC.NURSE ---
pt upset about medications for a head pain, security called, verbal assurance given to pt, pt reported she doesn't want to go back to [facility]. polishing machine tender aware
[2023-08-16] MEDS: HYDROcodone Bit/Acetam 5/325 TABLET 1 TAB PO (03:24)
--- NOTE | 2023-08-16 03:50 | PC.NURSE ---
Pt agreeable to return to [facility]. EMS at bedside for transport. [facility] notified that pt will be returning.
== END 2023-08-16 03:53 | disposition home or self-care (01) ==
PROVIDERS: Physician Assistant; Emergency Provider Internal Medicine
DX: S06.0X9A Concussion with loss of consciousness of unspecified duration, initial encounter (principal); F41.1 Generalized anxiety disorder; F43.0 Acute stress reaction; R51.9 Headache, unspecified; M54.2 Cervicalgia; R07.89 Other chest pain; W01.10XA Fall on same level from slipping, tripping and stumbling with subsequent striking against unspecified object, initial encounter; Y93.9 Activity, unspecified; Y92.9 Unspecified place or not applicable; Y99.9 Unspecified external cause status; Z79.899 Other long term (current) drug therapy
CPT/HCPCS: 36415; 70450; 70486; 71045; 72125; 80053; 84484; 84702; 85025; 93005; 99285